=== PATIENT | female | born 1970 | race Caucasian/White ===

== ENCOUNTER 2021-10-22 13:20 | Inpatient (IN) | payer MEDICARE, MEDICAID, SELFPAY ==
[2021-10-22] MEDS: Acetaminophen 325 MG TABLET 650 MG PO (15:47)
--- NOTE | 2021-10-22 16:04 | PC.NURSE ---
Missy (requesting to be called Christina, a 51 year old single woman with longstanding schizoaffective disorder, is admitted to from [facility] ED for exacerbation of psychosis. Per [facility] Visiting nurse Missy has been decompensating since the of her father several months ago. She is currently responding to auditory hallucinations, I know my mother is here. I hear her saying it, don't you hear that? . In addition, she appears paranoid and delusional (indicates belief food is poisoned) Speech is rapid, tangential and pressured. Missy is somewhat hypersexual, having ripped her paper scrubs in the front and exposed her breasts on the unit but responded to redirection. She is inattentive and having difficulty responding appropriately to admission questions. Missy denies sleep disturbance, reports good appetite I only eat cheese pizza and, as noted, ability to focus is impaired. Missy reported compliance with her medications. She has VNA bid for med administration. Visiting nurse states Missy struggles to take her Invega Sustenna because she is afraid of the injection but last took it on 10/09/21. Missy reports snorting her buspar. She denies using cocaine despite tox screen results. She denies other substance use. She reports sore muscles in bilateral thighs, took tylenol with effect and denies further physical complaint.
[2021-10-22] MEDS: LORazepam 1 MG TABLET 2 MG PO (19:13)
[2021-10-22] MEDS: HaloperidoL 5 MG TABLET 10 MG PO (20:15)
[2021-10-22] MEDS: clonazePAM 1 MG TABLET 2 MG PO (20:15)
[2021-10-22] MEDS: busPIRone HCl 10 MG TABLET PO (20:16)
[2021-10-22] MEDS: polyethylene glycoL 3350 17 GM POWD.PACK PO (20:20)
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
[2021-10-23 08:00] VITALS: BP 122/77; PULSE 105; RESP 18; TEMP 36.5; O2SAT 97
[2021-10-23] MEDS: Multivitamin TABLET 1 TAB PO (09:27)
[2021-10-23] MEDS: HaloperidoL 5 MG TABLET 10 MG PO ×2 (09:27→20:50)
[2021-10-23] MEDS: busPIRone HCl 10 MG TABLET PO ×2 (09:27→20:50)
[2021-10-23] MEDS: Fluticasone Propionate Nasal 16 GM SPRAY 2 SPRAY NOSTRIL-B (10:42)
[2021-10-23] MEDS: Albuterol Sulfate 90 MCG 8 GM INHALER 2 PUFF INHALE ×2 (10:42→15:15)
[2021-10-23] MEDS: Nicotine Polacrilex 2 MG GUM BUCCAL (16:38)
[2021-10-23] MEDS: clonazePAM 1 MG TABLET 2 MG PO (20:50)
[2021-10-24 06:00] VITALS: BP 145/80; PULSE 92; RESP 18; TEMP 36.9; O2SAT 100
[2021-10-24] MEDS: Multivitamin TABLET 1 TAB PO (08:24)
[2021-10-24] MEDS: busPIRone HCl 10 MG TABLET PO ×2 (08:25→22:51)
[2021-10-24] MEDS: HaloperidoL 5 MG TABLET 10 MG PO ×2 (08:25→22:52)
[2021-10-24] MEDS: Fluticasone Propionate Nasal 16 GM SPRAY 2 SPRAY NOSTRIL-B (08:25)
--- NOTE | 2021-10-24 09:55 | PM.EVENT ---
Event Note Date of Service: 10/24/21 Event Note: Patient refused to be seen, only wants to see Psychiatris. Saff can contacted us if anything change.
[2021-10-24] MEDS: LORazepam 1 MG TABLET 2 MG PO ×2 (10:17→16:54)
[2021-10-24] MEDS: carBAMazepine ER 200 MG TAB.ER.12H PO ×2 (10:17→22:51)
[2021-10-24] MEDS: Albuterol Sulfate 90 MCG 8 GM INHALER 2 PUFF INHALE ×2 (13:59→23:58)
--- NOTE | 2021-10-24 14:08 | HO.PSYCHPN ---
Subjective Subjective Date of Service: 10/24/21 Reason For Visit: torres Interim History: pt hyperverbal, active in the hallway. eager to meet with MD. states she is fine and doesn't need any medication. yet when MD suggests she would be helped by a mood stabilizer, she agrees to try trileptal. per staff, 3-day up wednesday. reporting depression 09/07. denies anxiety, SI/HI. seeing and hearing magical people. stated to nursing staff, i need some giggle pills. slept 7 hours overnight. Mental Status Exam Mental Status Exam Narrative: Appearance: casually groomed, fair hygiene in NAD Behavior:overly familiar with this film writer psychomotor:some agitation noted at times Speech:mostly clear, but rambles at times, hyperverbal, not pressured, loud at times, spontaneous Thought process:flight of ideas, derailment. Thought content: no delusions or paranoia clearly articulated Mood: not assessed Affect: mod labile SI:none expressed HI:none expresssed VH/AH:none expressed Insight/judgment:impaired x 2 Memory/cog: alert, oriented x 3. Diagnostics Vital Signs (24Hr): Vital Signs - 24 hr 10/24/21 06:00 Temperature 98.4 F Pulse Rate 92 Respiratory Rate 18 Blood Pressure 145/80 H Pulse Oximetry 100 Medications Medications Current Medications Acetaminophen (Acetaminophen 325 Mg Tablet) 650 mg PO Q6H PRN PRN Reason: Headache/Pain Mild Scale (1-3) Last Admin: 10/22/21 15:47 Dose: 650 mg Documented by: Al Hydroxide/Mg Hydroxide (Magnesium Hydrox/Alum Hydrox 30 Ml Oral.Susp) 30 ml PO Q6H PRN PRN Reason: Heartburn/Nausea Albuterol Sulfate (Albuterol Sulfate 90 Mcg 8 Gm Inhaler) 2 puff INHALE Q4H PRN PRN Reason: Wheezing Last Admin: 10/24/21 13:59 Dose: 2 puff Documented by: Benztropine Mesylate (Benztropine Mesylate 0.5 Mg Tablet) 0.5 mg PO BID PRN PRN Reason: Extrapyramidal Effects/Symptoms Buspirone HCl (Buspirone Hcl 10 Mg Tablet) 10 mg PO BID [facility] Last Admin: 10/24/21 08:25 Dose: 10 mg Documented by: Calcium Carbonate (Calcium Carbonate 500 Mg Tablet) 500 mg PO BID [facility] Last Admin: 10/24/21 10:18 Dose: 500 mg Documented by: Carbamazepine (Carbamazepine Er 200 Mg Tab.Er.12h) 200 mg PO BID [facility] Last Admin: 10/24/21 10:17 Dose: 200 mg Documented by: Clonazepam (Clonazepam 1 Mg Tablet) 2 mg PO BEDTIME [facility] Last Admin: 10/23/21 20:50 Dose: 2 mg Documented by: Fluticasone Propionate (Fluticasone Propionate Nasal 16 Gm [place]) 2 spray NOSTRIL-B DAILY [facility] Last Admin: 10/24/21 08:25 Dose: 2 spray Documented by: Haloperidol (Haloperidol 5 Mg Tablet) 10 mg PO BID [facility] Last Admin: 10/24/21 08:25 Dose: 10 mg Documented by: Hydroxyzine HCl (Hydroxyzine Hcl 25 Mg Tablet) 25 mg PO BEDTIME PRN PRN Reason: Anxiety Lorazepam (Lorazepam 1 Mg Tablet) 2 mg PO Q4H PRN PRN Reason: agitation Last Admin: 10/24/21 10:17 Dose: 2 mg Documented by: Magnesium Hydroxide (Milk Of Magnesia 30 Ml Oral.Susp) 30 ml PO DAILY PRN PRN Reason: Constipation Multivitamins/Vitamin C (Multivitamin Tablet) 1 tab PO DAILY [facility] Last Admin: 10/24/21 08:24 Dose: 1 tab Documented by: Nicotine Polacrilex (Nicotine Polacrilex 2 Mg Gum) 2 mg BUCCAL Q2H PRN PRN Reason: Nicotine Cravings Last Admin: 10/23/21 16:38 Dose: 2 mg Documented by: Olanzapine (Olanzapine Odt 10 Mg Tab.Rapdis) 10 mg TRANSLINGU Q6H PRN PRN Reason: agitation Paliperidone Palmitate (Paliperidone Palmitate 234 Mg/1.5 Ml Syringe) 234 mg IM Q28D [facility] Polyethylene Glycol (Polyethylene Glycol 3350 17 Gm Powd.Pack) 17 gm PO DAILY PRN PRN Reason: Constipation Last Admin: 10/22/21 20:20 Dose: 17 gm Documented by: Tiotropium [place] (Tiotropium [place] 18 Mcg Cap.W.Dev) 1 puff INHALE RDAILY [facility] Last Admin: 10/24/21 08:25 Dose: 1 puff Documented by: Trazodone HCl (Trazodone Hcl 50 Mg Tablet) 50 mg PO BEDTIME PRN PRN Reason: Insomnia Allergies Allergies Allergy/AdvReac Type Severity Reaction Status Date / Time oxcarbazepine Allergy Mild DYSTONIC Unverified 08/15/20 16:53 [From Trileptal] Penicillins Allergy Mild UNKNOWN Unverified 08/15/20 16:53 perphenazine [Perphenazine] Allergy Mild UNKNOWN Unverified 08/15/20 16:53 Assessment & Plan Assessment & Plan (1) Schizoaffective disorder, bipolar type: Status: Acute Code(s): F25.0 - Schizoaffective disorder, bipolar type Assessment and Plan: Ms. Mello is a 51 year-old woman with long hx of schizoaffective disorder bipolar type who was brought to [facility] ED for evaluation after her ACCS worker requested crisis eval as pt presented as increasingly more disorganized, labile, religiously preoccupied which is her usual presentation when she decompensates. PLAN 1. Admit to M3, CV, 15 minutes checks for safety 2. restarted medications combination of haldol, does have Invega Sustenna 234mg IM qmonth- verify last IM given. 3. started trileptal 200 BID 10/24 for mood stabilization. 4. Obtain collateral information 5. Aftercare planning I spent minutes with the patient and/or on the patient floor today, greater than?50% of which was spent counseling/coordinating care. Reason for contiued inpatient stay Substantial Risk for: inability to function
[2021-10-24 18:00] VITALS: RESP 16
[2021-10-24] MEDS: clonazePAM 1 MG TABLET 2 MG PO (22:52)
[2021-10-25] MEDS: polyethylene glycoL 3350 17 GM POWD.PACK PO ×2 (01:07→13:08)
[2021-10-25] MEDS: Nicotine Polacrilex 2 MG GUM BUCCAL (06:04)
[2021-10-25 07:40] VITALS: BP 127/95; PULSE 96; RESP 18; TEMP 36.7; O2SAT 96
[2021-10-25] MEDS: Albuterol Sulfate 90 MCG 8 GM INHALER 2 PUFF INHALE (07:48)
[2021-10-25] MEDS: Multivitamin TABLET 1 TAB PO (07:48)
[2021-10-25] MEDS: Fluticasone Propionate Nasal 16 GM SPRAY 2 SPRAY NOSTRIL-B (07:49)
[2021-10-25] MEDS: HaloperidoL 5 MG TABLET 10 MG PO ×2 (07:49→21:39)
[2021-10-25] MEDS: carBAMazepine ER 200 MG TAB.ER.12H PO (07:49)
[2021-10-25] MEDS: busPIRone HCl 10 MG TABLET PO ×2 (07:49→21:39)
[2021-10-25] MEDS: Nicotine 21 MG PATCH.TD24 TRANSDERMA (11:09)
--- NOTE | 2021-10-25 13:43 | P.PNPSI_ITS ---
Subjective Subjective Date of Service: 10/25/21 Reason For Visit: torres Interim History: pt reports she is feeling great and slept very well last night. shows MD the coloring she has done for her mother and informs MD she has left a gift for him at the nursing station. reluctantly agrees to increase tegretol to 300 BID. agrees to decrease klonopin at HS from 2 mg to 1.5 mg. reviews that she has a three-day in and plans to discharge on wednesday. per staff, manic, labile. eccentric make-up. wearing wigs. med-compliant. having AH of a peer from the long term, believes nursing is hiding him somewhere on the unit. slept 7:30-10:30 pm and then from 0100- 0445. Mental Status Exam Mental Status Exam Narrative: Appearance: casually groomed, fair hygiene in NAD Behavior:overly familiar with this credit underwriter psychomotor:some agitation noted at times Speech:mostly clear, but rambles at times, hyperverbal, not pressured, loud at times, spontaneous Thought process:flight of ideas, derailment. Thought content: no delusions or paranoia clearly articulated Mood: not assessed Affect: mod labile SI:none expressed HI:none expresssed VH/AH:none expressed Insight/judgment:impaired x 2 Memory/cog: alert, oriented x 3. Diagnostics Vital Signs (24Hr): Vital Signs - 24 hr 10/24/21 18:00 10/25/21 07:40 Temperature 98.0 F Pulse Rate 96 Respiratory Rate 16 18 Blood Pressure 127/95 H Pulse Oximetry 96 Medications Medications Current Medications Acetaminophen (Acetaminophen 325 Mg Tablet) 650 mg PO Q6H PRN PRN Reason: Headache/Pain Mild Scale (1-3) Last Admin: 10/22/21 15:47 Dose: 650 mg Documented by: Al Hydroxide/Mg Hydroxide (Magnesium Hydrox/Alum Hydrox 30 Ml Oral.Susp) 30 ml PO Q6H PRN PRN Reason: Heartburn/Nausea Albuterol Sulfate (Albuterol Sulfate 90 Mcg 8 Gm Inhaler) 2 puff INHALE Q4H PRN PRN Reason: Wheezing Last Admin: 10/25/21 07:48 Dose: 2 puff Documented by: Benztropine Mesylate (Benztropine Mesylate 0.5 Mg Tablet) 0.5 mg PO BID PRN PRN Reason: Extrapyramidal Effects/Symptoms Buspirone HCl (Buspirone Hcl 10 Mg Tablet) 10 mg PO BID [facility] Last Admin: 10/25/21 07:49 Dose: 10 mg Documented by: Calcium Carbonate (Calcium Carbonate 500 Mg Tablet) 500 mg PO BID [facility] Last Admin: 10/25/21 07:49 Dose: 500 mg Documented by: Carbamazepine (Carbamazepine Er 100 Mg Tab.Er.12h) 300 mg PO BID [facility] Clonazepam (Clonazepam 0.5 Mg Tablet) 1.5 mg PO BEDTIME [facility] Fluticasone Propionate (Fluticasone Propionate Nasal 16 Gm [place]) 2 spray NOSTRIL-B DAILY [facility] Last Admin: 10/25/21 07:49 Dose: 2 spray Documented by: Haloperidol (Haloperidol 5 Mg Tablet) 10 mg PO BID [facility] Last Admin: 10/25/21 07:49 Dose: 10 mg Documented by: Hydroxyzine HCl (Hydroxyzine Hcl 25 Mg Tablet) 25 mg PO BEDTIME PRN PRN Reason: Anxiety Lorazepam (Lorazepam 1 Mg Tablet) 2 mg PO Q4H PRN PRN Reason: agitation Last Admin: 10/24/21 16:54 Dose: 2 mg Documented by: Magnesium Hydroxide (Milk Of Magnesia 30 Ml Oral.Susp) 30 ml PO DAILY PRN PRN Reason: Constipation Multivitamins/Vitamin C (Multivitamin Tablet) 1 tab PO DAILY [facility] Last Admin: 10/25/21 07:48 Dose: 1 tab Documented by: Nicotine (Nicotine 21 Mg Patch.Td24) 21 mg TRANSDERMA DAILY [facility] Last Admin: 10/25/21 11:09 Dose: 21 mg Documented by: Nicotine Polacrilex (Nicotine Polacrilex 2 Mg Gum) 2 mg BUCCAL Q2H PRN PRN Reason: Nicotine Cravings Last Admin: 10/25/21 06:04 Dose: 2 mg Documented by: Olanzapine (Olanzapine Odt 10 Mg Tab.Rapdis) 10 mg TRANSLINGU Q6H PRN PRN Reason: agitation Paliperidone Palmitate (Paliperidone Palmitate 234 Mg/1.5 Ml Syringe) 234 mg IM Q28D [facility] Polyethylene Glycol (Polyethylene Glycol 3350 17 Gm Powd.Pack) 17 gm PO DAILY PRN PRN Reason: Constipation Last Admin: 10/25/21 13:08 Dose: 17 gm Documented by: Tiotropium [place] (Tiotropium [place] 18 Mcg Cap.W.Dev) 1 puff INHALE [place] [facility] Last Admin: 10/25/21 07:55 Dose: 1 puff Documented by: Trazodone HCl (Trazodone Hcl 50 Mg Tablet) 50 mg PO BEDTIME PRN PRN Reason: Insomnia Allergies Allergies Allergy/AdvReac Type Severity Reaction Status Date / Time oxcarbazepine Allergy Mild DYSTONIC Unverified 08/15/20 16:53 [From Trileptal] Penicillins Allergy Mild UNKNOWN Unverified 08/15/20 16:53 perphenazine [Perphenazine] Allergy Mild UNKNOWN Unverified 08/15/20 16:53 Assessment & Plan Assessment & Plan (1) Schizoaffective disorder, bipolar type: Status: Acute Code(s): F25.0 - Schizoaffective disorder, bipolar type Assessment and Plan: Ms. Mello is a 51 year-old woman with long hx of schizoaffective disorder bipolar type who was brought to [facility] ED for evaluation after her ACCS worker requested crisis eval as pt presented as increasingly more disorganized, labile, religiously preoccupied which is her usual presentation when she decompensates. PLAN 1. Admit to M3, CV, 15 minutes checks for safety 2. restarted medications combination of haldol, does have Invega Sustenna 234mg IM qmonth- verify last IM given. 3. started trileptal 200 BID 10/24 for mood stabilization, dosing increased to 300 mg BID on 10/25. 4. HS klonopin decreased from 2 mg to 1.5 mg as of 10/25. 4. Obtain collateral information 5. Aftercare planning I spent minutes with the patient and/or on the patient floor today, greater than?50% of which was spent counseling/coordinating care. Reason for contiued inpatient stay Substantial Risk for: inability to function and rapid decompensation
[2021-10-25 21:37] VITALS: BP 98/56; PULSE 102; RESP 18; TEMP 37.1; O2SAT 96
[2021-10-25] MEDS: clonazePAM 0.5 MG TABLET 1.5 MG PO (21:39)
[2021-10-25] MEDS: carBAMazepine ER 100 MG TAB.ER.12H 300 MG PO (21:40)
[2021-10-26 06:00] VITALS: BP 132/74; PULSE 107; RESP 18; TEMP 36.5; O2SAT 97
[2021-10-26] MEDS: Nicotine 21 MG PATCH.TD24 TRANSDERMA (09:45)
[2021-10-26] MEDS: Fluticasone Propionate Nasal 16 GM SPRAY 2 SPRAY NOSTRIL-B (09:46)
[2021-10-26] MEDS: busPIRone HCl 10 MG TABLET PO ×2 (09:47→21:20)
[2021-10-26] MEDS: Multivitamin TABLET 1 TAB PO (09:47)
[2021-10-26] MEDS: HaloperidoL 5 MG TABLET 10 MG PO ×2 (09:47→21:19)
[2021-10-26] MEDS: carBAMazepine ER 100 MG TAB.ER.12H 300 MG PO ×2 (10:36→21:20)
--- NOTE | 2021-10-26 13:31 | HO.PSYCHPN ---
Subjective Subjective Date of Service: 10/26/21 Reason For Visit: torres Interim History: pt found sleping in her bed late morning. easily rousable to voice. states she is doing fine, has no complaints. clearly sleepy. interview very brief, pt is allowed to return to resting. per staff, pt slept last night from 7 until this morning about 8. woke up rageful, pounding on table accusing staff of calling her a scumbag. took her medications and calmed down, returned to her room and went back to sleep. sleeping again at 11:45. appetite good. Mental Status Exam Mental Status Exam Narrative: sleeping but rousable. terse, does not turn over to look at MD, states she is in a good mood. Diagnostics Vital Signs (24Hr): Vital Signs - 24 hr 10/25/21 21:37 10/26/21 06:00 Temperature 98.7 F 97.7 F Pulse Rate 102 H 107 H Respiratory Rate 18 18 Blood Pressure 98/56 L 132/74 Pulse Oximetry 96 97 Medications Medications Current Medications Acetaminophen (Acetaminophen 325 Mg Tablet) 650 mg PO Q6H PRN PRN Reason: Headache/Pain Mild Scale (1-3) Last Admin: 10/22/21 15:47 Dose: 650 mg Documented by: Al Hydroxide/Mg Hydroxide (Magnesium Hydrox/Alum Hydrox 30 Ml Oral.Susp) 30 ml PO Q6H PRN PRN Reason: Heartburn/Nausea Albuterol Sulfate (Albuterol Sulfate 90 Mcg 8 Gm Inhaler) 2 puff INHALE Q4H PRN PRN Reason: Wheezing Last Admin: 10/25/21 07:48 Dose: 2 puff Documented by: Benztropine Mesylate (Benztropine Mesylate 0.5 Mg Tablet) 0.5 mg PO BID PRN PRN Reason: Extrapyramidal Effects/Symptoms Buspirone HCl (Buspirone Hcl 10 Mg Tablet) 10 mg PO BID [facility] Last Admin: 10/26/21 09:47 Dose: 10 mg Documented by: Calcium Carbonate (Calcium Carbonate 500 Mg Tablet) 500 mg PO BID [facility] Last Admin: 10/26/21 09:46 Dose: 500 mg Documented by: Carbamazepine (Carbamazepine Er 100 Mg Tab.Er.12h) 300 mg PO BID [facility] Last Admin: 10/26/21 10:36 Dose: 300 mg Documented by: Clonazepam (Clonazepam 0.5 Mg Tablet) 1.5 mg PO BEDTIME [facility] Last Admin: 10/25/21 21:39 Dose: 1.5 mg Documented by: Fluticasone Propionate (Fluticasone Propionate Nasal 16 Gm [place]) 2 spray NOSTRIL-B DAILY [facility] Last Admin: 10/26/21 09:46 Dose: 2 spray Documented by: Haloperidol (Haloperidol 5 Mg Tablet) 10 mg PO BID [facility] Last Admin: 10/26/21 09:47 Dose: 10 mg Documented by: Haloperidol (Haloperidol 5 Mg Tablet) 5 mg PO Q2H PRN PRN Reason: agitation Hydroxyzine HCl (Hydroxyzine Hcl 25 Mg Tablet) 25 mg PO BEDTIME PRN PRN Reason: Anxiety Lorazepam (Lorazepam 1 Mg Tablet) 2 mg PO Q4H PRN PRN Reason: agitation Last Admin: 10/24/21 16:54 Dose: 2 mg Documented by: Magnesium Hydroxide (Milk Of Magnesia 30 Ml Oral.Susp) 30 ml PO DAILY PRN PRN Reason: Constipation Multivitamins/Vitamin C (Multivitamin Tablet) 1 tab PO DAILY [facility] Last Admin: 10/26/21 09:47 Dose: 1 tab Documented by: Nicotine (Nicotine 21 Mg Patch.Td24) 21 mg TRANSDERMA DAILY [facility] Last Admin: 10/26/21 09:45 Dose: 21 mg Documented by: Nicotine Polacrilex (Nicotine Polacrilex 2 Mg Gum) 2 mg BUCCAL Q2H PRN PRN Reason: Nicotine Cravings Last Admin: 10/25/21 06:04 Dose: 2 mg Documented by: Olanzapine (Olanzapine Odt 10 Mg Tab.Rapdis) 10 mg TRANSLINGU Q6H PRN PRN Reason: agitation Paliperidone Palmitate (Paliperidone Palmitate 234 Mg/1.5 Ml Syringe) 234 mg IM Q28D [facility] Polyethylene Glycol (Polyethylene Glycol 3350 17 Gm Powd.Pack) 17 gm PO DAILY PRN PRN Reason: Constipation Last Admin: 10/25/21 13:08 Dose: 17 gm Documented by: Tiotropium [place] (Tiotropium [place] 18 Mcg Cap.W.Dev) 1 puff INHALE RDAILY [facility] Last Admin: 10/26/21 09:47 Dose: Not Given Documented by: Trazodone HCl (Trazodone Hcl 50 Mg Tablet) 50 mg PO BEDTIME PRN PRN Reason: Insomnia Allergies Allergies Allergy/AdvReac Type Severity Reaction Status Date / Time oxcarbazepine Allergy Mild DYSTONIC Verified 10/26/21 01:13 [From Trileptal] Penicillins Allergy Mild UNKNOWN Verified 10/26/21 01:13 perphenazine [Perphenazine] Allergy Mild UNKNOWN Verified 10/26/21 01:13 Assessment & Plan Assessment & Plan (1) Schizoaffective disorder, bipolar type: Status: Acute Code(s): F25.0 - Schizoaffective disorder, bipolar type Assessment and Plan: Ms. Mello is a 51 year-old woman with long hx of schizoaffective disorder bipolar type who was brought to [facility] ED for evaluation after her ACCS worker requested crisis eval as pt presented as increasingly more disorganized, labile, religiously preoccupied which is her usual presentation when she decompensates. PLAN 1. Admit to M3, CV, 15 minutes checks for safety 2. restarted medications combination of haldol, does have Invega Sustenna 234mg IM qmonth- verify last IM given. 3. started trileptal 200 BID 10/24 for mood stabilization, dosing increased to 300 mg BID on 10/25. 4. HS klonopin decreased from 2 mg to 1.5 mg as of 10/25, 1 mg as of 10/26. 4. Obtain collateral information 5. Aftercare planning I spent minutes with the patient and/or on the patient floor today, greater than?50% of which was spent counseling/coordinating care. Reason for contiued inpatient stay Substantial Risk for: inability to function and rapid decompensation
[2021-10-26] MEDS: polyethylene glycoL 3350 17 GM POWD.PACK PO (13:39)
[2021-10-26] MEDS: Albuterol Sulfate 90 MCG 8 GM INHALER 2 PUFF INHALE (16:26)
[2021-10-26] MEDS: Milk of Magnesia 30 ML ORAL.SUSP PO (17:18)
[2021-10-26 18:00] VITALS: BP 144/72; PULSE 90; RESP 18; TEMP 36.8; O2SAT 98
[2021-10-27] MEDS: busPIRone HCl 10 MG TABLET PO ×2 (09:14→22:17)
[2021-10-27] MEDS: HaloperidoL 5 MG TABLET 10 MG PO ×2 (09:14→22:17)
[2021-10-27] MEDS: carBAMazepine ER 100 MG TAB.ER.12H 300 MG PO (09:14)
[2021-10-27] MEDS: Multivitamin TABLET 1 TAB PO (09:14)
[2021-10-27] MEDS: LORazepam 1 MG TABLET 2 MG PO (12:41)
--- NOTE | 2021-10-27 12:44 | HO.PSYCHPN ---
Subjective Subjective Date of Service: 10/27/21 Reason For Visit: torres Interim History: pt encountered in the meza, hyperverbal, mildly agitated. she states she is getting claustrophobic here and needs to leave tomorrow. MD informs her that she needs more time, perhaps another week or more, and pt agrees to increase tegretol to 400 BID as of tonight and to take ativan 2 mg now for agitation. labile, tearful. after meeting she quickly changes her mind again and states she will be leaving tomorrow and will speak with the social media content manager to arrange for it. MD does not support this idea. per staff, slept 6-8 hours overnight. med-compliant. no other notable events or behaviors. 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 Thought content: no delusions or paranoia clearly articulated Mood: not assessed Affect: labile SI:none expressed HI:none expresssed VH/AH:none expressed Insight/judgment:impaired x 2 Memory/cog: alert, oriented x 3. Diagnostics Vital Signs (24Hr): Vital Signs - 24 hr 10/26/21 18:00 Temperature 98.2 F Pulse Rate 90 Respiratory Rate 18 Blood Pressure 144/72 H Pulse Oximetry 98 Medications Medications Current Medications Acetaminophen (Acetaminophen 325 Mg Tablet) 650 mg PO Q6H PRN PRN Reason: Headache/Pain Mild Scale (1-3) Last Admin: 10/22/21 15:47 Dose: 650 mg Documented by: Al Hydroxide/Mg Hydroxide (Magnesium Hydrox/Alum Hydrox 30 Ml Oral.Susp) 30 ml PO Q6H PRN PRN Reason: Heartburn/Nausea Albuterol Sulfate (Albuterol Sulfate 90 Mcg 8 Gm Inhaler) 2 puff INHALE Q4H PRN PRN Reason: Wheezing Last Admin: 10/26/21 16:26 Dose: 2 puff Documented by: Benztropine Mesylate (Benztropine Mesylate 0.5 Mg Tablet) 0.5 mg PO BID PRN PRN Reason: Extrapyramidal Effects/Symptoms Buspirone HCl (Buspirone Hcl 10 Mg Tablet) 10 mg PO BID [facility] Last Admin: 10/27/21 09:14 Dose: 10 mg Documented by: Calcium Carbonate (Calcium Carbonate 500 Mg Tablet) 500 mg PO BID [facility] Last Admin: 10/27/21 09:14 Dose: 500 mg Documented by: Carbamazepine (Carbamazepine Er 200 Mg Tab.Er.12h) 400 mg PO BID [facility] Clonazepam (Clonazepam 1 Mg Tablet) 1 mg PO BEDTIME [facility] Last Admin: 10/26/21 21:33 Dose: Not Given Documented by: Fluticasone Propionate (Fluticasone Propionate Nasal 16 Gm [place]) 2 spray NOSTRIL-B DAILY [facility] Last Admin: 10/27/21 10:03 Dose: Not Given Documented by: Haloperidol (Haloperidol 5 Mg Tablet) 10 mg PO BID [facility] Last Admin: 10/27/21 09:14 Dose: 10 mg Documented by: Haloperidol (Haloperidol 5 Mg Tablet) 5 mg PO Q2H PRN PRN Reason: agitation Hydroxyzine HCl (Hydroxyzine Hcl 25 Mg Tablet) 25 mg PO BEDTIME PRN PRN Reason: Anxiety Lorazepam (Lorazepam 1 Mg Tablet) 2 mg PO Q4H PRN PRN Reason: agitation Last Admin: 10/24/21 16:54 Dose: 2 mg Documented by: Magnesium Hydroxide (Milk Of Magnesia 30 Ml Oral.Susp) 30 ml PO DAILY PRN PRN Reason: Constipation Last Admin: 10/26/21 17:18 Dose: 30 ml Documented by: Multivitamins/Vitamin C (Multivitamin Tablet) 1 tab PO DAILY [facility] Last Admin: 10/27/21 09:14 Dose: 1 tab Documented by: Nicotine (Nicotine 21 Mg Patch.Td24) 21 mg TRANSDERMA DAILY [facility] Last Admin: 10/27/21 10:03 Dose: Not Given Documented by: Nicotine Polacrilex (Nicotine Polacrilex 2 Mg Gum) 2 mg BUCCAL Q2H PRN PRN Reason: Nicotine Cravings Last Admin: 10/25/21 06:04 Dose: 2 mg Documented by: Olanzapine (Olanzapine Odt 10 Mg Tab.Rapdis) 10 mg TRANSLINGU Q6H PRN PRN Reason: agitation Paliperidone Palmitate (Paliperidone Palmitate 234 Mg/1.5 Ml Syringe) 234 mg IM Q28D [facility] Polyethylene Glycol (Polyethylene Glycol 3350 17 Gm Powd.Pack) 17 gm PO DAILY PRN PRN Reason: Constipation Last Admin: 10/26/21 13:39 Dose: 17 gm Documented by: Tiotropium [place] (Tiotropium [place] 18 Mcg Cap.W.Dev) 1 puff INHALE RDAILY [facility] Last Admin: 10/27/21 10:03 Dose: Not Given Documented by: Trazodone HCl (Trazodone Hcl 50 Mg Tablet) 50 mg PO BEDTIME PRN PRN Reason: Insomnia Allergies Allergies Allergy/AdvReac Type Severity Reaction Status Date / Time oxcarbazepine Allergy Mild DYSTONIC Verified 10/26/21 01:13 [From Trileptal] Penicillins Allergy Mild UNKNOWN Verified 10/26/21 01:13 perphenazine [Perphenazine] Allergy Mild UNKNOWN Verified 10/26/21 01:13 Assessment & Plan Assessment & Plan (1) Schizoaffective disorder, bipolar type: Status: Acute Code(s): F25.0 - Schizoaffective disorder, bipolar type Assessment and Plan: Ms. Mello is a 51 year-old woman with long hx of schizoaffective disorder bipolar type who was brought to [facility] ED for evaluation after her ACCS worker requested crisis eval as pt presented as increasingly more disorganized, labile, religiously preoccupied which is her usual presentation when she decompensates. PLAN 1. Admit to M3, CV, 15 minutes checks for safety 2. restarted medications combination of haldol, does have Invega Sustenna 234mg IM qmonth last given 10/09, next due 11/06. 3. started tegretol 200 BID 10/24 for mood stabilization, dosing increased to 300 mg BID on 10/25, on to 400 BID on 10/27. 4. HS klonopin decreased from 2 mg to 1.5 mg as of 10/25, 1 mg as of 10/26. 5. Aftercare planning I spent minutes with the patient and/or on the patient floor today, greater than?50% of which was spent counseling/coordinating care. Reason for contiued inpatient stay Substantial Risk for: inability to function and rapid decompensation
[2021-10-27] MEDS: Nicotine 21 MG PATCH.TD24 TRANSDERMA (12:56)
[2021-10-27] MEDS: Nicotine Polacrilex 2 MG GUM BUCCAL ×2 (15:36→22:34)
[2021-10-27] MEDS: Albuterol Sulfate 90 MCG 8 GM INHALER 2 PUFF INHALE (17:47)
[2021-10-27 18:00] VITALS: BP 117/68; PULSE 100; RESP 17; TEMP 36.5; O2SAT 96
[2021-10-27] MEDS: carBAMazepine ER 200 MG TAB.ER.12H 400 MG PO (22:16)
[2021-10-27] MEDS: clonazePAM 1 MG TABLET PO (22:16)
[2021-10-27] MEDS: hydrOXYzine HCL 25 MG TABLET PO (22:17)
[2021-10-27] MEDS: traZODone HCL 50 MG TABLET PO (22:17)
[2021-10-27] MEDS: Benztropine Mesylate 0.5 MG TABLET PO (22:17)
[2021-10-28] MEDS: HaloperidoL 5 MG TABLET 10 MG PO ×2 (08:24→22:06)
[2021-10-28] MEDS: busPIRone HCl 10 MG TABLET PO ×2 (08:24→22:07)
[2021-10-28] MEDS: Multivitamin TABLET 1 TAB PO (08:25)
[2021-10-28] MEDS: carBAMazepine ER 200 MG TAB.ER.12H 400 MG PO ×2 (08:25→22:07)
[2021-10-28] MEDS: Nicotine 21 MG PATCH.TD24 TRANSDERMA (08:26)
[2021-10-28] MEDS: Fluticasone Propionate Nasal 16 GM SPRAY 2 SPRAY NOSTRIL-B (08:26)
--- NOTE | 2021-10-28 13:59 | HO.PSYCHPN ---
Subjective Subjective Date of Service: 10/28/21 Reason For Visit: torres Interim History: pt found sleeping in her bed. rousable to voice. states she signed the CV. she reports she is feeling well and has no problems. she is not labile or pressured during brief interview but clearly sleepy. MD shortly allows her to return to rest. per staff, pt was labile and pressured yesterday. she endorsed AVH. she received ativan 2 mg x21 with good effect. she was hypersexual as well as social and disorganized. med-compliant. self-dialoguing. slept about 8 hours overnight. 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 Diagnostics Vital Signs (24Hr): Vital Signs - 24 hr 10/27/21 18:00 Temperature 97.7 F Pulse Rate 100 Respiratory Rate 17 Blood Pressure 117/68 Pulse Oximetry 96 Medications Medications Current Medications Acetaminophen (Acetaminophen 325 Mg Tablet) 650 mg PO Q6H PRN PRN Reason: Headache/Pain Mild Scale (1-3) Last Admin: 10/22/21 15:47 Dose: 650 mg Documented by: Al Hydroxide/Mg Hydroxide (Magnesium Hydrox/Alum Hydrox 30 Ml Oral.Susp) 30 ml PO Q6H PRN PRN Reason: Heartburn/Nausea Albuterol Sulfate (Albuterol Sulfate 90 Mcg 8 Gm Inhaler) 2 puff INHALE Q4H PRN PRN Reason: Wheezing Last Admin: 10/27/21 17:47 Dose: 2 puff Documented by: Benztropine Mesylate (Benztropine Mesylate 0.5 Mg Tablet) 0.5 mg PO BID PRN PRN Reason: Extrapyramidal Effects/Symptoms Last Admin: 10/27/21 22:17 Dose: 0.5 mg Documented by: Buspirone HCl (Buspirone Hcl 10 Mg Tablet) 10 mg PO BID [facility] Last Admin: 10/28/21 08:24 Dose: 10 mg Documented by: Calcium Carbonate (Calcium Carbonate 500 Mg Tablet) 500 mg PO BID [facility] Last Admin: 10/28/21 08:25 Dose: 500 mg Documented by: Carbamazepine (Carbamazepine Er 200 Mg Tab.Er.12h) 400 mg PO BID [facility] Last Admin: 10/28/21 08:25 Dose: 400 mg Documented by: Clonazepam (Clonazepam 0.5 Mg Tablet) 0.5 mg PO BEDTIME [facility] Fluticasone Propionate (Fluticasone Propionate Nasal 16 Gm [place]) 2 spray NOSTRIL-B DAILY [facility] Last Admin: 10/28/21 08:26 Dose: 2 spray Documented by: Haloperidol (Haloperidol 5 Mg Tablet) 10 mg PO BID [facility] Last Admin: 10/28/21 08:24 Dose: 10 mg Documented by: Haloperidol (Haloperidol 5 Mg Tablet) 5 mg PO Q2H PRN PRN Reason: agitation Hydroxyzine HCl (Hydroxyzine Hcl 25 Mg Tablet) 25 mg PO BEDTIME PRN PRN Reason: Anxiety Last Admin: 10/27/21 22:17 Dose: 25 mg Documented by: Lorazepam (Lorazepam 1 Mg Tablet) 2 mg PO Q4H PRN PRN Reason: agitation Last Admin: 10/24/21 16:54 Dose: 2 mg Documented by: Magnesium Hydroxide (Milk Of Magnesia 30 Ml Oral.Susp) 30 ml PO DAILY PRN PRN Reason: Constipation Last Admin: 10/26/21 17:18 Dose: 30 ml Documented by: Multivitamins/Vitamin C (Multivitamin Tablet) 1 tab PO DAILY [facility] Last Admin: 10/28/21 08:25 Dose: 1 tab Documented by: Nicotine (Nicotine 21 Mg Patch.Td24) 21 mg TRANSDERMA DAILY [facility] Last Admin: 10/28/21 08:26 Dose: 21 mg Documented by: Nicotine Polacrilex (Nicotine Polacrilex 2 Mg Gum) 2 mg BUCCAL Q2H PRN PRN Reason: Nicotine Cravings Last Admin: 10/27/21 22:34 Dose: 2 mg Documented by: Olanzapine (Olanzapine Odt 10 Mg Tab.Rapdis) 10 mg TRANSLINGU Q6H PRN PRN Reason: agitation Paliperidone Palmitate (Paliperidone Palmitate 234 Mg/1.5 Ml Syringe) 234 mg IM Q28D [facility] Polyethylene Glycol (Polyethylene Glycol 3350 17 Gm Powd.Pack) 17 gm PO DAILY PRN PRN Reason: Constipation Last Admin: 10/26/21 13:39 Dose: 17 gm Documented by: Tiotropium [place] (Tiotropium [place] 18 Mcg Cap.W.Dev) 1 puff INHALE RDAILY [facility] Last Admin: 10/28/21 08:27 Dose: 1 puff Documented by: Trazodone HCl (Trazodone Hcl 50 Mg Tablet) 50 mg PO BEDTIME PRN PRN Reason: Insomnia Last Admin: 10/27/21 22:17 Dose: 50 mg Documented by: Allergies Allergies Allergy/AdvReac Type Severity Reaction Status Date / Time oxcarbazepine Allergy Mild DYSTONIC Verified 10/26/21 01:13 [From Trileptal] Penicillins Allergy Mild UNKNOWN Verified 10/26/21 01:13 perphenazine [Perphenazine] Allergy Mild UNKNOWN Verified 10/26/21 01:13 Assessment & Plan Assessment & Plan (1) Schizoaffective disorder, bipolar type: Status: Acute Code(s): F25.0 - Schizoaffective disorder, bipolar type Assessment and Plan: Ms. Mello is a 51 year-old woman with long hx of schizoaffective disorder bipolar type who was brought to [facility] ED for evaluation after her ACCS worker requested crisis eval as pt presented as increasingly more disorganized, labile, religiously preoccupied which is her usual presentation when she decompensates. PLAN 1. Admit to M3, CV, 15 minutes checks for safety 2. restarted medications combination of haldol, does have Invega Sustenna 234mg IM qmonth last given 10/09, next due 11/06. 3. started tegretol 200 BID 10/24 for mood stabilization, dosing increased to 300 mg BID on 10/25, on to 400 BID on 10/27. 4. HS klonopin decreased from 2 mg to 1.5 mg as of 10/25, to 1 mg as of 10/26, to 0.5 mg as of 10/28. 5. Aftercare planning. may go to respite once stabilized. I spent minutes with the patient and/or on the patient floor today, greater than?50% of which was spent counseling/coordinating care. Reason for contiued inpatient stay Substantial Risk for: inability to function and rapid decompensation
[2021-10-28] MEDS: Nicotine Polacrilex 2 MG GUM BUCCAL (16:50)
[2021-10-28] MEDS: clonazePAM 0.5 MG TABLET PO (22:06)
[2021-10-29] MEDS: LORazepam 1 MG TABLET 2 MG PO ×2 (07:14→12:33)
[2021-10-29] MEDS: HaloperidoL 5 MG TABLET PO (07:15)
[2021-10-29 08:00] VITALS: BP 121/68; PULSE 94; RESP 16; TEMP 36.3; O2SAT 97
[2021-10-29] MEDS: Fluticasone Propionate Nasal 16 GM SPRAY 2 SPRAY NOSTRIL-B (08:24)
[2021-10-29] MEDS: carBAMazepine ER 200 MG TAB.ER.12H 400 MG PO ×2 (08:29→21:15)
[2021-10-29] MEDS: busPIRone HCl 10 MG TABLET PO ×2 (08:29→21:16)
[2021-10-29] MEDS: HaloperidoL 5 MG TABLET 10 MG PO ×2 (08:29→21:15)
[2021-10-29] MEDS: Multivitamin TABLET 1 TAB PO (08:29)
[2021-10-29] MEDS: Nicotine Polacrilex 2 MG GUM BUCCAL ×3 (08:31→19:54)
--- NOTE | 2021-10-29 13:57 | HO.PSYCHPN ---
Subjective Subjective Date of Service: 10/29/21 Reason For Visit: torres Interim History: pt found sleeping in her bed, easily rousable. states she is feeling fine, no complaints or questions. states she spoke with SW about going to respite in a week, which remains her plan. pt seen later seated in the milieu and greeted once again. per staff, pt agitated yesterday morning. accused staff of calling her ugly. c/o dizziness from medications. self-dialoguing, bizarre, pretending to be a cat. got haldol/ativan this morning for agitation. 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 Diagnostics Vital Signs (24Hr): Vital Signs - 24 hr 10/29/21 08:00 Temperature 97.4 F Pulse Rate 94 Respiratory Rate 16 Blood Pressure 121/68 Pulse Oximetry 97 Medications Medications Current Medications Acetaminophen (Acetaminophen 325 Mg Tablet) 650 mg PO Q6H PRN PRN Reason: Headache/Pain Mild Scale (1-3) Last Admin: 10/22/21 15:47 Dose: 650 mg Documented by: Al Hydroxide/Mg Hydroxide (Magnesium Hydrox/Alum Hydrox 30 Ml Oral.Susp) 30 ml PO Q6H PRN PRN Reason: Heartburn/Nausea Albuterol Sulfate (Albuterol Sulfate 90 Mcg 8 Gm Inhaler) 2 puff INHALE Q4H PRN PRN Reason: Wheezing Last Admin: 10/27/21 17:47 Dose: 2 puff Documented by: Benztropine Mesylate (Benztropine Mesylate 0.5 Mg Tablet) 0.5 mg PO BID PRN PRN Reason: Extrapyramidal Effects/Symptoms Last Admin: 10/27/21 22:17 Dose: 0.5 mg Documented by: Buspirone HCl (Buspirone Hcl 10 Mg Tablet) 10 mg PO BID [facility] Last Admin: 10/29/21 08:29 Dose: 10 mg Documented by: Calcium Carbonate (Calcium Carbonate 500 Mg Tablet) 500 mg PO BID [facility] Last Admin: 10/29/21 08:29 Dose: 500 mg Documented by: Carbamazepine (Carbamazepine Er 200 Mg Tab.Er.12h) 400 mg PO BID [facility] Last Admin: 10/29/21 08:29 Dose: 400 mg Documented by: Clonazepam (Clonazepam 0.5 Mg Tablet) 0.5 mg PO BEDTIME [facility] Last Admin: 10/28/21 22:06 Dose: 0.5 mg Documented by: Fluticasone Propionate (Fluticasone Propionate Nasal 16 Gm [place]) 2 spray NOSTRIL-B DAILY [facility] Last Admin: 10/29/21 08:24 Dose: 2 spray Documented by: Haloperidol (Haloperidol 5 Mg Tablet) 10 mg PO BID [facility] Last Admin: 10/29/21 08:29 Dose: 10 mg Documented by: Haloperidol (Haloperidol 5 Mg Tablet) 5 mg PO Q2H PRN PRN Reason: agitation Last Admin: 10/29/21 07:15 Dose: 5 mg Documented by: Hydroxyzine HCl (Hydroxyzine Hcl 25 Mg Tablet) 25 mg PO BEDTIME PRN PRN Reason: Anxiety Last Admin: 10/27/21 22:17 Dose: 25 mg Documented by: Lorazepam (Lorazepam 1 Mg Tablet) 2 mg PO Q4H PRN PRN Reason: agitation Last Admin: 10/29/21 12:33 Dose: 2 mg Documented by: Magnesium Hydroxide (Milk Of [place]esia 30 Ml Oral.Susp) 30 ml PO DAILY PRN PRN Reason: Constipation Last Admin: 10/26/21 17:18 Dose: 30 ml Documented by: Multivitamins/Vitamin C (Multivitamin Tablet) 1 tab PO DAILY [facility] Last Admin: 10/29/21 08:29 Dose: 1 tab Documented by: Nicotine (Nicotine 21 Mg Patch.Td24) 21 mg TRANSDERMA DAILY [facility] Last Admin: 10/29/21 08:40 Dose: Not Given Documented by: Nicotine Polacrilex (Nicotine Polacrilex 2 Mg Gum) 2 mg BUCCAL Q2H PRN PRN Reason: Nicotine Cravings Last Admin: 10/29/21 12:33 Dose: 2 mg Documented by: Olanzapine (Olanzapine Odt 10 Mg Tab.Rapdis) 10 mg TRANSLINGU Q6H PRN PRN Reason: agitation Paliperidone Palmitate (Paliperidone Palmitate 234 Mg/1.5 Ml Syringe) 234 mg IM Q28D [facility] Polyethylene Glycol (Polyethylene Glycol 3350 17 Gm Powd.Pack) 17 gm PO DAILY PRN PRN Reason: Constipation Last Admin: 10/26/21 13:39 Dose: 17 gm Documented by: Tiotropium [place] (Tiotropium [place] 18 Mcg Cap.W.Dev) 1 puff INHALE RDAILY [facility] Last Admin: 10/29/21 08:24 Dose: 1 puff Documented by: Trazodone HCl (Trazodone Hcl 50 Mg Tablet) 50 mg PO BEDTIME PRN PRN Reason: Insomnia Last Admin: 10/27/21 22:17 Dose: 50 mg Documented by: Allergies Allergies Allergy/AdvReac Type Severity Reaction Status Date / Time oxcarbazepine Allergy Mild DYSTONIC Verified 10/26/21 01:13 [From Trileptal] Penicillins Allergy Mild UNKNOWN Verified 10/26/21 01:13 perphenazine [Perphenazine] Allergy Mild UNKNOWN Verified 10/26/21 01:13 Assessment & Plan Assessment & Plan (1) Schizoaffective disorder, bipolar type: Status: Acute Code(s): F25.0 - Schizoaffective disorder, bipolar type Assessment and Plan: Ms. Mello is a 51 year-old woman with long hx of schizoaffective disorder bipolar type who was brought to [facility] ED for evaluation after her ACCS worker requested crisis eval as pt presented as increasingly more disorganized, labile, religiously preoccupied which is her usual presentation when she decompensates. PLAN 1. Admit to M3, CV, 15 minutes checks for safety 2. restarted medications combination of haldol, does have Invega Sustenna 234mg IM qmonth last given 10/09, next due 11/06. 3. started tegretol 200 BID 10/24 for mood stabilization, dosing increased to 300 mg BID on 10/25, on to 400 BID on 10/27. 4. HS klonopin decreased from 2 mg to 1.5 mg as of 10/25, to 1 mg as of 10/26, to 0.5 mg as of 10/28. 5. Aftercare planning. may go to respite once stabilized. I spent minutes with the patient and/or on the patient floor today, greater than?50% of which was spent counseling/coordinating care. Reason for contiued inpatient stay Substantial Risk for: inability to function and rapid decompensation
[2021-10-29 20:42] VITALS: BP 103/55; PULSE 95; TEMP 36.7; O2SAT 96
[2021-10-29] MEDS: clonazePAM 0.5 MG TABLET PO (21:15)
[2021-10-29] MEDS: Albuterol Sulfate 90 MCG 8 GM INHALER 2 PUFF INHALE (21:15)
[2021-10-30] MEDS: Nicotine Polacrilex 2 MG GUM BUCCAL ×3 (02:57→16:44)
[2021-10-30] MEDS: HaloperidoL 5 MG TABLET PO (04:01)
[2021-10-30] MEDS: LORazepam 1 MG TABLET 2 MG PO ×2 (04:01→16:44)
[2021-10-30 07:00] VITALS: BMI 34.2
[2021-10-30 07:45] VITALS: BP 138/84; PULSE 98; RESP 16; TEMP 36.7; O2SAT 96
[2021-10-30] MEDS: Nicotine 21 MG PATCH.TD24 TRANSDERMA (08:27)
[2021-10-30] MEDS: HaloperidoL 5 MG TABLET 10 MG PO ×2 (08:28→20:58)
[2021-10-30] MEDS: Multivitamin TABLET 1 TAB PO (08:28)
[2021-10-30] MEDS: busPIRone HCl 10 MG TABLET PO ×2 (08:28→20:58)
[2021-10-30] MEDS: carBAMazepine ER 200 MG TAB.ER.12H 400 MG PO ×2 (08:28→20:59)
[2021-10-30] MEDS: Fluticasone Propionate Nasal 16 GM SPRAY 2 SPRAY NOSTRIL-B (08:31)
--- NOTE | 2021-10-30 15:38 | HO.PSYCHPN ---
Subjective Subjective Date of Service: 10/30/21 Reason For Visit: torres Interim History: pt reports feeling well, states her mood is much more stable on the tegretol, states she is feeling much better. she is looking forward to discharge, which she states she plans on happening next wednesday, to respite. no other requests or complaints. per staff, easily engaged. labile, seeing and hearing friends but denying AVH. got haldol and ativan at 0400. Mental Status Exam Mental Status Exam Narrative: Appearance: casually groomed, fair hygiene in NAD Behavior: cooperative psychomotor: no PMA/PMR Speech:mostly clear, not pressured, loud at times, spontaneous Thought process: tangential Thought content: no delusions or paranoia clearly articulated Mood: euthymic Affect: non-labile, normo-intense SI:none expressed HI:none expresssed VH/AH:none expressed Insight/judgment:impaired x 2 Memory/cog: alert, oriented x 3. Diagnostics Vital Signs (24Hr): Vital Signs - 24 hr 10/29/21 20:42 10/30/21 07:45 Temperature 98.0 F 98.1 F Pulse Rate 95 98 Respiratory Rate 16 Blood Pressure 103/55 L 138/84 Pulse Oximetry 96 96 BMI result Body Mass Index 34.2 Medications Medications Current Medications Acetaminophen (Acetaminophen 325 Mg Tablet) 650 mg PO Q6H PRN PRN Reason: Headache/Pain Mild Scale (1-3) Last Admin: 10/22/21 15:47 Dose: 650 mg Documented by: Al Hydroxide/Mg Hydroxide (Magnesium Hydrox/Alum Hydrox 30 Ml Oral.Susp) 30 ml PO Q6H PRN PRN Reason: Heartburn/Nausea Albuterol Sulfate (Albuterol Sulfate 90 Mcg 8 Gm Inhaler) 2 puff INHALE Q4H PRN PRN Reason: Wheezing Last Admin: 10/29/21 21:15 Dose: 2 puff Documented by: Benztropine Mesylate (Benztropine Mesylate 0.5 Mg Tablet) 0.5 mg PO BID PRN PRN Reason: Extrapyramidal Effects/Symptoms Last Admin: 10/27/21 22:17 Dose: 0.5 mg Documented by: Buspirone HCl (Buspirone Hcl 10 Mg Tablet) 10 mg PO BID [facility] Last Admin: 10/30/21 08:28 Dose: 10 mg Documented by: Calcium Carbonate (Calcium Carbonate 500 Mg Tablet) 500 mg PO BID [facility] Last Admin: 10/30/21 08:28 Dose: 500 mg Documented by: Carbamazepine (Carbamazepine Er 200 Mg Tab.Er.12h) 400 mg PO BID [facility] Last Admin: 10/30/21 08:28 Dose: 400 mg Documented by: Clonazepam (Clonazepam 0.5 Mg Tablet) 0.5 mg PO BEDTIME [facility] Last Admin: 10/29/21 21:15 Dose: 0.5 mg Documented by: Fluticasone Propionate (Fluticasone Propionate Nasal 16 Gm [place]) 2 spray NOSTRIL-B DAILY [facility] Last Admin: 10/30/21 08:31 Dose: 2 spray Documented by: Haloperidol (Haloperidol 5 Mg Tablet) 10 mg PO BID [facility] Last Admin: 10/30/21 08:28 Dose: 10 mg Documented by: Haloperidol (Haloperidol 5 Mg Tablet) 5 mg PO Q2H PRN PRN Reason: agitation Last Admin: 10/30/21 04:01 Dose: 5 mg Documented by: Hydroxyzine HCl (Hydroxyzine Hcl 25 Mg Tablet) 25 mg PO BEDTIME PRN PRN Reason: Anxiety Last Admin: 10/27/21 22:17 Dose: 25 mg Documented by: Lorazepam (Lorazepam 1 Mg Tablet) 2 mg PO Q4H PRN PRN Reason: agitation Last Admin: 10/30/21 04:01 Dose: 2 mg Documented by: Magnesium Hydroxide (Milk Of Magnesia 30 Ml Oral.Susp) 30 ml PO DAILY PRN PRN Reason: Constipation Last Admin: 10/26/21 17:18 Dose: 30 ml Documented by: Multivitamins/Vitamin C (Multivitamin Tablet) 1 tab PO DAILY [facility] Last Admin: 10/30/21 08:28 Dose: 1 tab Documented by: Nicotine (Nicotine 21 Mg Patch.Td24) 21 mg TRANSDERMA DAILY [facility] Last Admin: 10/30/21 08:27 Dose: 21 mg Documented by: Nicotine Polacrilex (Nicotine Polacrilex 2 Mg Gum) 2 mg BUCCAL Q2H PRN PRN Reason: Nicotine Cravings Last Admin: 10/30/21 09:15 Dose: 2 mg Documented by: Olanzapine (Olanzapine Odt 10 Mg Tab.Rapdis) 10 mg TRANSLINGU Q6H PRN PRN Reason: agitation Paliperidone Palmitate (Paliperidone Palmitate 234 Mg/1.5 Ml Syringe) 234 mg IM Q28D [facility] Polyethylene Glycol (Polyethylene Glycol 3350 17 Gm Powd.Pack) 17 gm PO DAILY PRN PRN Reason: Constipation Last Admin: 10/26/21 13:39 Dose: 17 gm Documented by: Tiotropium [place] (Tiotropium [place] 18 Mcg Cap.W.Dev) 1 puff INHALE RDAILY [facility] Last Admin: 10/30/21 08:31 Dose: 1 puff Documented by: Trazodone HCl (Trazodone Hcl 50 Mg Tablet) 50 mg PO BEDTIME PRN PRN Reason: Insomnia Last Admin: 10/27/21 22:17 Dose: 50 mg Documented by: Allergies Allergies Allergy/AdvReac Type Severity Reaction Status Date / Time oxcarbazepine Allergy Mild DYSTONIC Verified 10/26/21 01:13 [From Trileptal] Penicillins Allergy Mild UNKNOWN Verified 10/26/21 01:13 perphenazine [Perphenazine] Allergy Mild UNKNOWN Verified 10/26/21 01:13 Assessment & Plan Assessment & Plan (1) Schizoaffective disorder, bipolar type: Status: Acute Code(s): F25.0 - Schizoaffective disorder, bipolar type Assessment and Plan: Ms. Mello is a 51 year-old woman with long hx of schizoaffective disorder bipolar type who was brought to [facility] ED for evaluation after her ACCS worker requested crisis eval as pt presented as increasingly more disorganized, labile, religiously preoccupied which is her usual presentation when she decompensates. PLAN 1. Admit to M3, CV, 15 minutes checks for safety 2. restarted medications combination of haldol, does have Invega Sustenna 234mg IM qmonth last given 10/09, next due 11/06. 3. started tegretol 200 BID 10/24 for mood stabilization, dosing increased to 300 mg BID on 10/25, on to 400 BID on 10/27. 4. HS klonopin decreased from 2 mg to 1.5 mg as of 10/25, to 1 mg as of 10/26, to 0.5 mg as of 10/28. 5. Aftercare planning. may go to respite once stabilized. I spent minutes with the patient and/or on the patient floor today, greater than?50% of which was spent counseling/coordinating care. Reason for contiued inpatient stay Substantial Risk for: inability to function and rapid decompensation
[2021-10-30] MEDS: Albuterol Sulfate 90 MCG 8 GM INHALER 2 PUFF INHALE (16:44)
[2021-10-30 20:55] VITALS: BP 113/64; PULSE 104; RESP 16; TEMP 36.7; O2SAT 95
[2021-10-30] MEDS: clonazePAM 0.5 MG TABLET PO (20:58)
[2021-10-31] MEDS: Fluticasone Propionate Nasal 16 GM SPRAY 2 SPRAY NOSTRIL-B (09:24)
[2021-10-31 09:25] VITALS: BP 122/71; PULSE 100; RESP 18; TEMP 36.7; O2SAT 95
[2021-10-31] MEDS: carBAMazepine ER 200 MG TAB.ER.12H 400 MG PO ×2 (09:26→21:40)
[2021-10-31] MEDS: busPIRone HCl 10 MG TABLET PO ×2 (09:26→21:40)
[2021-10-31] MEDS: HaloperidoL 5 MG TABLET 10 MG PO ×2 (09:26→21:39)
[2021-10-31] MEDS: Multivitamin TABLET 1 TAB PO (09:26)
[2021-10-31] MEDS: Nicotine 21 MG PATCH.TD24 TRANSDERMA (09:28)
--- NOTE | 2021-10-31 11:35 | P.PNPSI_ITS ---
Subjective Subjective Date of Service: 10/31/21 Reason For Visit: torres Subjective Notes: Conditional Voluntary Interim History: Pt singling loudly and dancing in room. Pt reports she can hear some people telepathically. She reports she is sleeping and eating well. Some insight as to need for treatment in that she reports she notes that medications help her not to talk too fast. She also reports think more clearly with medications. Per nursing, visible in the unit, no behavioral concerns. No SI/HI. Pt less intrusive with peers, less disruptive in unit. Medication Compliance: Yes Side effects from medications: No Attending Groups: Intermittent Review of Systems Constitutional: Denies fatigue Eyes: Denies no additional eye complaints Cardiovascular: Denies chest pain, Denies chest pain with activity, Denies Epigastric Pain, Denies rapid heart rate, Denies lightheadedness and Denies dyspnea Respiratory: Denies chest congestion and Denies dyspnea Gastrointestinal: Denies abdominal pain, Denies constipation, Denies heartburn, Denies diarrhea and Denies vomiting Musculoskeletal: Denies no additional musculoskeletal complaints Endocrine: Denies fatigue Mental Status Exam Mental Status Exam Narrative: Appearance: casually groomed, fair hygiene in NAD Behavior: cooperative psychomotor: no PMA/PMR Speech:mostly clear, not pressured, loud at times, spontaneous Thought process: tangential Thought content: no delusions or paranoia clearly articulated Mood: euthymic Affect: non-labile, normo-intense SI:none expressed HI:none expresssed VH/AH:none expressed Insight/judgment:impaired x 2 Memory/cog: alert, oriented x 3. Diagnostics Vital Signs (24Hr): Vital Signs - 24 hr 10/30/21 20:55 10/31/21 09:25 Temperature 98.0 F 98.0 F Pulse Rate 104 H 100 Respiratory Rate 16 18 Blood Pressure 113/64 122/71 Pulse Oximetry 95 95 BMI result Body Mass Index 34.2 Medications Medications Current Medications Acetaminophen (Acetaminophen 325 Mg Tablet) 650 mg PO Q6H PRN PRN Reason: Headache/Pain Mild Scale (1-3) Last Admin: 10/22/21 15:47 Dose: 650 mg Documented by: Al Hydroxide/Mg Hydroxide (Magnesium Hydrox/Alum Hydrox 30 Ml Oral.Susp) 30 ml PO Q6H PRN PRN Reason: Heartburn/Nausea Albuterol Sulfate (Albuterol Sulfate 90 Mcg 8 Gm Inhaler) 2 puff INHALE Q4H PRN PRN Reason: Wheezing Last Admin: 10/30/21 16:44 Dose: 2 puff Documented by: Benztropine Mesylate (Benztropine Mesylate 0.5 Mg Tablet) 0.5 mg PO BID PRN PRN Reason: Extrapyramidal Effects/Symptoms Last Admin: 10/27/21 22:17 Dose: 0.5 mg Documented by: Buspirone HCl (Buspirone Hcl 10 Mg Tablet) 10 mg PO BID [facility] Last Admin: 10/31/21 09:26 Dose: 10 mg Documented by: Calcium Carbonate (Calcium Carbonate 500 Mg Tablet) 500 mg PO BID [facility] Last Admin: 10/31/21 09:26 Dose: 500 mg Documented by: Carbamazepine (Carbamazepine Er 200 Mg Tab.Er.12h) 400 mg PO BID [facility] Last Admin: 10/31/21 09:26 Dose: 400 mg Documented by: Clonazepam (Clonazepam 0.5 Mg Tablet) 0.5 mg PO BEDTIME [facility] Last Admin: 10/30/21 20:58 Dose: 0.5 mg Documented by: Fluticasone Propionate (Fluticasone Propionate Nasal 16 Gm [place]) 2 spray NOSTRIL-B DAILY [facility] Last Admin: 10/31/21 09:24 Dose: 2 spray Documented by: Haloperidol (Haloperidol 5 Mg Tablet) 10 mg PO BID [facility] Last Admin: 10/31/21 09:26 Dose: 10 mg Documented by: Haloperidol (Haloperidol 5 Mg Tablet) 5 mg PO Q2H PRN PRN Reason: agitation Last Admin: 10/30/21 04:01 Dose: 5 mg Documented by: Hydroxyzine HCl (Hydroxyzine Hcl 25 Mg Tablet) 25 mg PO BEDTIME PRN PRN Reason: Anxiety Last Admin: 10/27/21 22:17 Dose: 25 mg Documented by: Lorazepam (Lorazepam 1 Mg Tablet) 2 mg PO Q4H PRN PRN Reason: agitation Last Admin: 10/30/21 16:44 Dose: 2 mg Documented by: Magnesium Hydroxide (Milk Of Magnesia 30 Ml Oral.Susp) 30 ml PO DAILY PRN PRN Reason: Constipation Last Admin: 10/26/21 17:18 Dose: 30 ml Documented by: Multivitamins/Vitamin C (Multivitamin Tablet) 1 tab PO DAILY [facility] Last Admin: 10/31/21 09:26 Dose: 1 tab Documented by: Nicotine (Nicotine 21 Mg Patch.Td24) 21 mg TRANSDERMA DAILY [facility] Last Admin: 10/31/21 09:28 Dose: 21 mg Documented by: Nicotine Polacrilex (Nicotine Polacrilex 2 Mg Gum) 2 mg BUCCAL Q2H PRN PRN Reason: Nicotine Cravings Last Admin: 10/30/21 16:44 Dose: 2 mg Documented by: Olanzapine (Olanzapine Odt 10 Mg Tab.Rapdis) 10 mg TRANSLINGU Q6H PRN PRN Reason: agitation Paliperidone Palmitate (Paliperidone Palmitate 234 Mg/1.5 Ml Syringe) 234 mg IM Q28D [facility] Polyethylene Glycol (Polyethylene Glycol 3350 17 Gm Powd.Pack) 17 gm PO DAILY PRN PRN Reason: Constipation Last Admin: 10/26/21 13:39 Dose: 17 gm Documented by: Tiotropium [place] (Tiotropium [place] 18 Mcg Cap.W.Dev) 1 puff INHALE RDAILY [facility] Last Admin: 10/31/21 09:25 Dose: 1 puff Documented by: Trazodone HCl (Trazodone Hcl 50 Mg Tablet) 50 mg PO BEDTIME PRN PRN Reason: Insomnia Last Admin: 10/27/21 22:17 Dose: 50 mg Documented by: Allergies Allergies Allergy/AdvReac Type Severity Reaction Status Date / Time oxcarbazepine Allergy Mild DYSTONIC Verified 10/26/21 01:13 [From Trileptal] Penicillins Allergy Mild UNKNOWN Verified 10/26/21 01:13 perphenazine [Perphenazine] Allergy Mild UNKNOWN Verified 10/26/21 01:13 Assessment & Plan Assessment & Plan (1) Schizoaffective disorder, bipolar type: Status: Acute Code(s): F25.0 - Schizoaffective disorder, bipolar type Assessment and Plan: Ms. Mello is a 51 year-old woman with long hx of schizoaffective disorder bipolar type who was brought to [facility] ED for evaluation after her ACCS worker requested crisis eval as pt presented as increasingly more disorganized, labile, religiously preoccupied which is her usual presentation when she decompensates. PLAN 1. Admit to M3, CV, 15 minutes checks for safety 2. restarted medications combination of haldol, does have Invega Sustenna 234mg IM qmonth last given 10/09, next due 11/06. 3. started tegretol 200 BID 10/24 for mood stabilization, dosing increased to 300 mg BID on 10/25, on to 400 BID on 10/27. 4. HS klonopin decreased from 2 mg to 1.5 mg as of 10/25, to 1 mg as of 10/26, to 0.5 mg as of 10/28. 5. Aftercare planning. may go to respite once stabilized. 10/31- pt less hyperverbal, less labile, some insight into symptoms and need for treatment. No SI/HI. still thinks she can hear people talking to her telepathically. I spent minutes with the patient and/or on the patient floor today, greater than?50% of which was spent counseling/coordinating care. Reason for contiued inpatient stay Substantial Risk for: inability to function
[2021-10-31] MEDS: LORazepam 1 MG TABLET 2 MG PO (15:26)
[2021-10-31] MEDS: clonazePAM 0.5 MG TABLET PO (21:40)
[2021-10-31 21:45] VITALS: BP 121/56; PULSE 80; TEMP 36.6; O2SAT 97
[2021-11-01 06:00] VITALS: BP 176/91; PULSE 90; RESP 18; TEMP 36.6; O2SAT 96
[2021-11-01] MEDS: Fluticasone Propionate Nasal 16 GM SPRAY 2 SPRAY NOSTRIL-B (08:58)
[2021-11-01] MEDS: Albuterol Sulfate 90 MCG 8 GM INHALER 2 PUFF INHALE (08:58)
[2021-11-01] MEDS: Nicotine 21 MG PATCH.TD24 TRANSDERMA (09:00)
[2021-11-01] MEDS: busPIRone HCl 10 MG TABLET PO ×2 (09:01→22:08)
[2021-11-01] MEDS: Multivitamin TABLET 1 TAB PO (09:01)
[2021-11-01] MEDS: HaloperidoL 5 MG TABLET 10 MG PO ×2 (09:02→22:07)
[2021-11-01] MEDS: carBAMazepine ER 200 MG TAB.ER.12H 400 MG PO ×2 (09:02→22:07)
[2021-11-01] MEDS: HaloperidoL 5 MG TABLET PO (13:16)
[2021-11-01] MEDS: LORazepam 1 MG TABLET 2 MG PO (14:55)
[2021-11-01] MEDS: Nicotine Polacrilex 2 MG GUM BUCCAL (16:40)
--- NOTE | 2021-11-01 16:49 | HO.PSYCHPN ---
Subjective Subjective Date of Service: 11/01/21 Reason For Visit: torres Diagnostics Vital Signs (24Hr): Vital Signs - 24 hr 10/31/21 21:45 11/01/21 06:00 Temperature 97.8 F 97.8 F Pulse Rate 80 90 Respiratory Rate 18 Blood Pressure 121/56 L 176/91 H Pulse Oximetry 97 96 BMI result Body Mass Index 34.2 Labs Results: 11/17/21 08:42 11/17/21 08:42 Medications Medications Current Medications Acetaminophen (Acetaminophen 325 Mg Tablet) 650 mg PO Q6H PRN PRN Reason: Headache/Pain Mild Scale (1-3) Last Admin: 10/22/21 15:47 Dose: 650 mg Documented by: Al Hydroxide/Mg Hydroxide (Magnesium Hydrox/Alum Hydrox 30 Ml Oral.Susp) 30 ml PO Q6H PRN PRN Reason: Heartburn/Nausea Albuterol Sulfate (Albuterol Sulfate 90 Mcg 8 Gm Inhaler) 2 puff INHALE Q4H PRN PRN Reason: Wheezing Last Admin: 11/01/21 08:58 Dose: 2 puff Documented by: Benztropine Mesylate (Benztropine Mesylate 0.5 Mg Tablet) 0.5 mg PO BID PRN PRN Reason: Extrapyramidal Effects/Symptoms Last Admin: 10/27/21 22:17 Dose: 0.5 mg Documented by: Buspirone HCl (Buspirone Hcl 10 Mg Tablet) 10 mg PO BID [facility] Last Admin: 11/01/21 09:01 Dose: 10 mg Documented by: Calcium Carbonate (Calcium Carbonate 500 Mg Tablet) 500 mg PO BID [facility] Last Admin: 11/01/21 09:02 Dose: 500 mg Documented by: Carbamazepine (Carbamazepine Er 200 Mg Tab.Er.12h) 400 mg PO BID [facility] Last Admin: 11/01/21 09:02 Dose: 400 mg Documented by: Clonazepam (Clonazepam 0.5 Mg Tablet) 0.5 mg PO BEDTIME [facility] Last Admin: 10/31/21 21:40 Dose: 0.5 mg Documented by: Fluticasone Propionate (Fluticasone Propionate Nasal 16 Gm [place]) 2 spray NOSTRIL-B DAILY [facility] Last Admin: 11/01/21 08:58 Dose: 2 spray Documented by: Haloperidol (Haloperidol 5 Mg Tablet) 10 mg PO BID [facility] Last Admin: 11/01/21 09:02 Dose: 10 mg Documented by: Haloperidol (Haloperidol 5 Mg Tablet) 5 mg PO Q2H PRN PRN Reason: agitation Last Admin: 11/01/21 13:16 Dose: 5 mg Documented by: Hydroxyzine HCl (Hydroxyzine Hcl 25 Mg Tablet) 25 mg PO BEDTIME PRN PRN Reason: Anxiety Last Admin: 10/27/21 22:17 Dose: 25 mg Documented by: Lorazepam (Lorazepam 1 Mg Tablet) 2 mg PO Q4H PRN PRN Reason: agitation Last Admin: 11/01/21 14:55 Dose: 2 mg Documented by: Magnesium Hydroxide (Milk Of Magnesia 30 Ml Oral.Susp) 30 ml PO DAILY PRN PRN Reason: Constipation Last Admin: 10/26/21 17:18 Dose: 30 ml Documented by: Multivitamins/Vitamin C (Multivitamin Tablet) 1 tab PO DAILY [facility] Last Admin: 11/01/21 09:01 Dose: 1 tab Documented by: Nicotine (Nicotine 21 Mg Patch.Td24) 21 mg TRANSDERMA DAILY [facility] Last Admin: 11/01/21 09:00 Dose: 21 mg Documented by: Nicotine Polacrilex (Nicotine Polacrilex 2 Mg Gum) 2 mg BUCCAL Q2H PRN PRN Reason: Nicotine Cravings Last Admin: 11/01/21 16:40 Dose: 2 mg Documented by: Olanzapine (Olanzapine Odt 10 Mg Tab.Rapdis) 10 mg TRANSLINGU Q6H PRN PRN Reason: agitation Paliperidone Palmitate (Paliperidone Palmitate 234 Mg/1.5 Ml Syringe) 234 mg IM Q28D [facility] Polyethylene Glycol (Polyethylene Glycol 3350 17 Gm Powd.Pack) 17 gm PO DAILY PRN PRN Reason: Constipation Last Admin: 10/26/21 13:39 Dose: 17 gm Documented by: Tiotropium [place] (Tiotropium [place] 18 Mcg Cap.W.Dev) 1 puff INHALE RDAILY [facility] Last Admin: 11/01/21 08:59 Dose: 1 puff Documented by: Trazodone HCl (Trazodone Hcl 50 Mg Tablet) 50 mg PO BEDTIME PRN PRN Reason: Insomnia Last Admin: 10/27/21 22:17 Dose: 50 mg Documented by: Allergies Allergies Allergy/AdvReac Type Severity Reaction Status Date / Time oxcarbazepine Allergy Mild DYSTONIC Verified 10/26/21 01:13 [From Trileptal] Penicillins Allergy Mild UNKNOWN Verified 10/26/21 01:13 perphenazine [Perphenazine] Allergy Mild UNKNOWN Verified 10/26/21 01:13 Assessment & Plan Assessment & Plan (1) Schizoaffective disorder, bipolar type: Status: Acute Code(s): F25.0 - Schizoaffective disorder, bipolar type Plan Ms. Mello is a 51 year-old woman with long hx of schizoaffective disorder bipolar type who was brought to [facility] ED for evaluation after her ACCS worker requested crisis eval as pt presented as increasingly more disorganized, labile, religiously preoccupied which is her usual presentation when she decompensates. PLAN 1. Admit to M3, CV, 15 minutes checks for safety 2. restarted medications combination of haldol, does have Invega Sustenna 234mg IM qmonth last given 10/09, next due 11/06. 3. started tegretol 200 BID 10/24 for mood stabilization, dosing increased to 300 mg BID on 10/25, on to 400 BID on 10/27. 4. HS klonopin decreased from 2 mg to 1.5 mg as of 10/25, to 1 mg as of 10/26, to 0.5 mg as of 10/28. 5. Aftercare planning. may go to respite once stabilized. 10/31- pt less hyperverbal, less labile, some insight into symptoms and need for treatment. No SI/HI. still thinks she can hear people talking to her telepathically. I spent minutes with the patient and/or on the patient floor today, greater than?50% of which was spent counseling/coordinating care. Reason for contiued inpatient stay Substantial Risk for: other
[2021-11-01] MEDS: clonazePAM 0.5 MG TABLET PO (22:08)
[2021-11-02 06:00] VITALS: BP 144/80; PULSE 84; RESP 16; TEMP 36.3; O2SAT 95
[2021-11-02] MEDS: HaloperidoL 5 MG TABLET 10 MG PO ×2 (07:47→20:33)
[2021-11-02] MEDS: Nicotine 21 MG PATCH.TD24 TRANSDERMA (07:48)
[2021-11-02] MEDS: Multivitamin TABLET 1 TAB PO (07:48)
[2021-11-02] MEDS: carBAMazepine ER 200 MG TAB.ER.12H 400 MG PO ×2 (07:48→20:33)
[2021-11-02] MEDS: Nicotine Polacrilex 2 MG GUM BUCCAL (07:48)
[2021-11-02] MEDS: busPIRone HCl 10 MG TABLET PO ×2 (07:48→20:33)
[2021-11-02] MEDS: Fluticasone Propionate Nasal 16 GM SPRAY 2 SPRAY NOSTRIL-B (07:49)
[2021-11-02] MEDS: Albuterol Sulfate 90 MCG 8 GM INHALER 2 PUFF INHALE ×2 (07:49→16:19)
[2021-11-02] MEDS: HaloperidoL 5 MG TABLET PO (11:00)
[2021-11-02] MEDS: LORazepam 1 MG TABLET 2 MG PO (11:00)
--- NOTE | 2021-11-02 14:16 | HO.PSYCHPN ---
Subjective Subjective Date of Service: 11/02/21 Reason For Visit: torres Subjective Notes: Conditional Voluntary Medical Problems Affecting Mental Status: No Interim History: Elated. Bright wig and clothing and make up. Labile. tearful. Needed prn medications as distressed by same. Told staff writer he looked like Hari Mayes and proposed. Seeked lots of reassurance its called torres I think . Sleep has been better. No med concerns Medication Compliance: Yes Side effects from medications: No Attending Groups: Intermittent Review of Systems Acute medical concerns: No Review of Systems Review of Systems unremarkable Mental Status Exam Mental Status Exam Narrative: Brightly colored clothes, make up and wig. Pressured speech and flight ofg ideas. Elated, tearful. No SI, HI. No overt delusions or AH. Insight fair. Diagnostics Vital Signs (24Hr): Vital Signs - 24 hr 11/02/21 06:00 Temperature 97.4 F Pulse Rate 84 Respiratory Rate 16 Blood Pressure 144/80 H Pulse Oximetry 95 BMI result Body Mass Index 34.2 Medications Medications Current Medications Acetaminophen (Acetaminophen 325 Mg Tablet) 650 mg PO Q6H PRN PRN Reason: Headache/Pain Mild Scale (1-3) Last Admin: 10/22/21 15:47 Dose: 650 mg Documented by: Al Hydroxide/Mg Hydroxide (Magnesium Hydrox/Alum Hydrox 30 Ml Oral.Susp) 30 ml PO Q6H PRN PRN Reason: Heartburn/Nausea Albuterol Sulfate (Albuterol Sulfate 90 Mcg 8 Gm Inhaler) 2 puff INHALE Q4H PRN PRN Reason: Wheezing Last Admin: 11/02/21 07:49 Dose: 2 puff Documented by: Benztropine Mesylate (Benztropine Mesylate 0.5 Mg Tablet) 0.5 mg PO BID PRN PRN Reason: Extrapyramidal Effects/Symptoms Last Admin: 10/27/21 22:17 Dose: 0.5 mg Documented by: Buspirone HCl (Buspirone Hcl 10 Mg Tablet) 10 mg PO BID [facility] Last Admin: 11/02/21 07:48 Dose: 10 mg Documented by: Calcium Carbonate (Calcium Carbonate 500 Mg Tablet) 500 mg PO BID [facility] Last Admin: 11/02/21 07:47 Dose: 500 mg Documented by: Carbamazepine (Carbamazepine Er 200 Mg Tab.Er.12h) 400 mg PO BID [facility] Last Admin: 11/02/21 07:48 Dose: 400 mg Documented by: Clonazepam (Clonazepam 0.5 Mg Tablet) 0.5 mg PO BEDTIME [facility] Last Admin: 11/01/21 22:08 Dose: 0.5 mg Documented by: Fluticasone Propionate (Fluticasone Propionate Nasal 16 Gm [place]) 2 spray NOSTRIL-B DAILY [facility] Last Admin: 11/02/21 07:49 Dose: 2 spray Documented by: Haloperidol (Haloperidol 5 Mg Tablet) 10 mg PO BID [facility] Last Admin: 11/02/21 07:47 Dose: 10 mg Documented by: Haloperidol (Haloperidol 5 Mg Tablet) 5 mg PO Q2H PRN PRN Reason: agitation Last Admin: 11/02/21 11:00 Dose: 5 mg Documented by: Hydroxyzine HCl (Hydroxyzine Hcl 25 Mg Tablet) 25 mg PO BEDTIME PRN PRN Reason: Anxiety Last Admin: 10/27/21 22:17 Dose: 25 mg Documented by: Lorazepam (Lorazepam 1 Mg Tablet) 2 mg PO Q4H PRN PRN Reason: agitation Last Admin: 11/02/21 11:00 Dose: 2 mg Documented by: Magnesium Hydroxide (Milk Of Magnesia 30 Ml Oral.Susp) 30 ml PO DAILY PRN PRN Reason: Constipation Last Admin: 10/26/21 17:18 Dose: 30 ml Documented by: Multivitamins/Vitamin C (Multivitamin Tablet) 1 tab PO DAILY [facility] Last Admin: 11/02/21 07:48 Dose: 1 tab Documented by: Nicotine (Nicotine 21 Mg Patch.Td24) 21 mg TRANSDERMA DAILY [facility] Last Admin: 11/02/21 07:48 Dose: 21 mg Documented by: Nicotine Polacrilex (Nicotine Polacrilex 2 Mg Gum) 2 mg BUCCAL Q2H PRN PRN Reason: Nicotine Cravings Last Admin: 11/02/21 07:48 Dose: 2 mg Documented by: Olanzapine (Olanzapine Odt 10 Mg Tab.Rapdis) 10 mg TRANSLINGU Q6H PRN PRN Reason: agitation Paliperidone Palmitate (Paliperidone Palmitate 234 Mg/1.5 Ml Syringe) 234 mg IM Q28D [facility] Polyethylene Glycol (Polyethylene Glycol 3350 17 Gm Powd.Pack) 17 gm PO DAILY PRN PRN Reason: Constipation Last Admin: 10/26/21 13:39 Dose: 17 gm Documented by: Tiotropium [place] (Tiotropium [place] 18 Mcg Cap.W.Dev) 1 puff INHALE RDAILY [facility] Last Admin: 11/02/21 07:49 Dose: 1 puff Documented by: Trazodone HCl (Trazodone Hcl 50 Mg Tablet) 50 mg PO BEDTIME PRN PRN Reason: Insomnia Last Admin: 10/27/21 22:17 Dose: 50 mg Documented by: Allergies Allergies Allergy/AdvReac Type Severity Reaction Status Date / Time oxcarbazepine Allergy Mild DYSTONIC Verified 10/26/21 01:13 [From Trileptal] Penicillins Allergy Mild UNKNOWN Verified 10/26/21 01:13 perphenazine [Perphenazine] Allergy Mild UNKNOWN Verified 10/26/21 01:13 Assessment & Plan Assessment & Plan (1) Schizoaffective disorder, bipolar type: Status: Acute Code(s): F25.0 - Schizoaffective disorder, bipolar type Assessment and Plan: Ms. Mello is a 51 year-old woman with long hx of schizoaffective disorder bipolar type who was brought to [facility] ED for evaluation after her ACCS worker requested crisis eval as pt presented as increasingly more disorganized, labile, religiously preoccupied which is her usual presentation when she decompensates. PLAN 1. Admit to M3, CV, 15 minutes checks for safety 2. restarted medications combination of haldol, does have Invega Sustenna 234mg IM qmonth last given 10/09, next due 11/06. 3. started tegretol 200 BID 10/24 for mood stabilization, dosing increased to 300 mg BID on 10/25, on to 400 BID on 10/27. 4. HS klonopin decreased from 2 mg to 1.5 mg as of 10/25, to 1 mg as of 10/26, to 0.5 mg as of 10/28. 5. Aftercare planning. may go to respite once stabilized. 10/31- pt less hyperverbal, less labile, some insight into symptoms and need for treatment. No SI/HI. still thinks she can hear people talking to her telepathically. 11/02: no changes to primary team tx plan I spent minutes with the patient and/or on the patient floor today, greater than?50% of which was spent counseling/coordinating care. Reason for contiued inpatient stay Substantial Risk for: inability to function and rapid decompensation
[2021-11-02] MEDS: polyethylene glycoL 3350 17 GM POWD.PACK PO (17:53)
[2021-11-02 20:19] VITALS: PULSE 87; TEMP 36.6; O2SAT 97
[2021-11-02] MEDS: clonazePAM 0.5 MG TABLET PO (20:33)
[2021-11-03] MEDS: Nicotine 21 MG PATCH.TD24 TRANSDERMA (09:14)
[2021-11-03] MEDS: Fluticasone Propionate Nasal 16 GM SPRAY 2 SPRAY NOSTRIL-B (09:15)
[2021-11-03] MEDS: Multivitamin TABLET 1 TAB PO (09:15)
[2021-11-03] MEDS: Albuterol Sulfate 90 MCG 8 GM INHALER 2 PUFF INHALE ×2 (09:15→15:03)
[2021-11-03] MEDS: busPIRone HCl 10 MG TABLET PO ×2 (09:16→20:26)
[2021-11-03] MEDS: HaloperidoL 5 MG TABLET 10 MG PO ×2 (09:16→20:26)
[2021-11-03] MEDS: carBAMazepine ER 200 MG TAB.ER.12H 400 MG PO ×2 (09:16→20:26)
--- NOTE | 2021-11-03 13:07 | P.PNPSI_ITS ---
Subjective Subjective Date of Service: 11/03/21 Reason For Visit: torres Interim History: pt found lying in her bed resting, not asleep. easily roused. tangential, talking about how she is sad bcse her mother will be cancelling the mother's phone service due to cost. asking about going straight back to halfway rather than to respite first. asking for MD to be in touch with her former psych MD, whom she reports has since retired. discuss her RIVERA on , she asks for lidocaine gel for the injection site. reports she is feeling well, mood is good, sleeping well, getting along with others. agreeable to blood draw tomorrow. per staff, denies AVH yet RIS. talkative with peers and staff. denies dep/anx. sleeping well. singing and dancing. Mental Status Exam Mental Status Exam Narrative: Appearance: casually groomed, fair hygiene in NAD Behavior: cooperative psychomotor: no PMA/PMR Speech:increased rate and amount, loud at times, spontaneous Thought process: tangential Thought content: no delusions or paranoia clearly articulated Mood: euthymic Affect: non-labile, normo-intense SI:none expressed HI:none expresssed VH/AH:none expressed Insight/judgment:impaired x 2 Memory/cog: alert, oriented x 3. Diagnostics Vital Signs (24Hr): Vital Signs - 24 hr 11/02/21 20:19 Temperature 97.9 F Pulse Rate 87 Pulse Oximetry 97 BMI result Body Mass Index 34.2 Medications Medications Current Medications Acetaminophen (Acetaminophen 325 Mg Tablet) 650 mg PO Q6H PRN PRN Reason: Headache/Pain Mild Scale (1-3) Last Admin: 10/22/21 15:47 Dose: 650 mg Documented by: Al Hydroxide/Mg Hydroxide (Magnesium Hydrox/Alum Hydrox 30 Ml Oral.Susp) 30 ml PO Q6H PRN PRN Reason: Heartburn/Nausea Albuterol Sulfate (Albuterol Sulfate 90 Mcg 8 Gm Inhaler) 2 puff INHALE Q4H PRN PRN Reason: Wheezing Last Admin: 11/03/21 09:15 Dose: 2 puff Documented by: Benztropine Mesylate (Benztropine Mesylate 0.5 Mg Tablet) 0.5 mg PO BID PRN PRN Reason: Extrapyramidal Effects/Symptoms Last Admin: 10/27/21 22:17 Dose: 0.5 mg Documented by: Buspirone HCl (Buspirone Hcl 10 Mg Tablet) 10 mg PO BID ON LICENSE OF [facility] Last Admin: 11/03/21 09:16 Dose: 10 mg Documented by: Calcium Carbonate (Calcium Carbonate 500 Mg Tablet) 500 mg PO BID ON LICENSE OF [facility] Last Admin: 11/03/21 09:16 Dose: 500 mg Documented by: Carbamazepine (Carbamazepine Er 200 Mg Tab.Er.12h) 400 mg PO BID ON LICENSE OF [facility] Last Admin: 11/03/21 09:16 Dose: 400 mg Documented by: Fluticasone Propionate (Fluticasone Propionate Nasal 16 Gm [place]) 2 spray NOSTRIL-B DAILY ON LICENSE OF [facility] Last Admin: 11/03/21 09:15 Dose: 2 spray Documented by: Haloperidol (Haloperidol 5 Mg Tablet) 10 mg PO BID ON LICENSE OF [facility] Last Admin: 11/03/21 09:16 Dose: 10 mg Documented by: Haloperidol (Haloperidol 5 Mg Tablet) 5 mg PO Q2H PRN PRN Reason: agitation Last Admin: 11/02/21 11:00 Dose: 5 mg Documented by: Hydroxyzine HCl (Hydroxyzine Hcl 25 Mg Tablet) 25 mg PO BEDTIME PRN PRN Reason: Anxiety Last Admin: 10/27/21 22:17 Dose: 25 mg Documented by: Lorazepam (Lorazepam 1 Mg Tablet) 2 mg PO Q4H PRN PRN Reason: agitation Last Admin: 11/02/21 11:00 Dose: 2 mg Documented by: Magnesium Hydroxide (Milk Of Magnesia 30 Ml Oral.Susp) 30 ml PO DAILY PRN PRN Reason: Constipation Last Admin: 10/26/21 17:18 Dose: 30 ml Documented by: Multivitamins/Vitamin C (Multivitamin Tablet) 1 tab PO DAILY ON LICENSE OF [facility] Last Admin: 11/03/21 09:15 Dose: 1 tab Documented by: Nicotine (Nicotine 21 Mg Patch.Td24) 21 mg TRANSDERMA DAILY ON LICENSE OF [facility] Last Admin: 11/03/21 09:14 Dose: 21 mg Documented by: Nicotine Polacrilex (Nicotine Polacrilex 2 Mg Gum) 2 mg BUCCAL Q2H PRN PRN Reason: Nicotine Cravings Last Admin: 11/02/21 07:48 Dose: 2 mg Documented by: Olanzapine (Olanzapine Odt 10 Mg Tab.Rapdis) 10 mg TRANSLINGU Q6H PRN PRN Reason: agitation Paliperidone Palmitate (Paliperidone Palmitate 234 Mg/1.5 Ml Syringe) 234 mg IM Q28D ON LICENSE OF [facility] Polyethylene Glycol (Polyethylene Glycol 3350 17 Gm Powd.Pack) 17 gm PO DAILY PRN PRN Reason: Constipation Last Admin: 11/02/21 17:53 Dose: 17 gm Documented by: Tiotropium [place] (Tiotropium [place] 18 Mcg Cap.W.Dev) 1 puff INHALE RDAILY ON LICENSE OF [facility] Last Admin: 11/03/21 09:15 Dose: 1 puff Documented by: Trazodone HCl (Trazodone Hcl 50 Mg Tablet) 50 mg PO BEDTIME PRN PRN Reason: Insomnia Last Admin: 10/27/21 22:17 Dose: 50 mg Documented by: Allergies Allergies Allergy/AdvReac Type Severity Reaction Status Date / Time oxcarbazepine Allergy Mild DYSTONIC Verified 10/26/21 01:13 [From Trileptal] Penicillins Allergy Mild UNKNOWN Verified 10/26/21 01:13 perphenazine [Perphenazine] Allergy Mild UNKNOWN Verified 10/26/21 01:13 Assessment & Plan Assessment & Plan (1) Schizoaffective disorder, bipolar type: Status: Acute Code(s): F25.0 - Schizoaffective disorder, bipolar type Assessment and Plan: Ms. Mello is a 51 year-old woman with long hx of schizoaffective disorder bipolar type who was brought to [facility] ED for evaluation after her ACCS worker re quested crisis eval as pt presented as increasingly more disorganized, labile, religiously preoccupied which is her usual presentation when she decompensates. PLAN 1. Admit to M3, CV, 15 minutes checks for safety 2. restarted medications combination of haldol, does have Invega Sustenna 234mg IM qmonth last given 10/09, next due 11/06. 3. started tegretol 200 BID 10/24 for mood stabilization, dosing increased to 300 mg BID on 10/25, on to 400 BID on 10/27. 4. HS klonopin decreased from 2 mg to 1.5 mg as of 10/25, to 1 mg as of 10/26, to 0.5 mg as of 10/28. 5. Aftercare planning. may go to respite once stabilized. I spent minutes with the patient and/or on the patient floor today, greater than?50% of which was spent counseling/coordinating care. Reason for contiued inpatient stay Substantial Risk for: inability to function and rapid decompensation
[2021-11-03] MEDS: LORazepam 1 MG TABLET 2 MG PO (18:59)
[2021-11-03 20:30] VITALS: RESP 16
[2021-11-04 07:36] LABS: MANUAL DIFF FLAG NO
[2021-11-04 07:42] LABS: Basophils Percent Auto 0.5 % (0-2); Eosinophils Absolute Auto 0.3 X10*3/uL (0.0-0.4); Eosinophils Percent Auto 4.5 % (0-4); Hematocrit 39.1 % (37.0-47.0); Hemoglobin 12.9 g/dl (12.0-16.0); Imm Gran Abs Auto 0.01 X10*3/uL (0.00-0.03); Imm Gran Pct Auto 0.2 % (0.0-0.4); Lymphocytes Absolute Auto 1.6 X10*3/uL (1.2-4.9); Lymphocytes Percent Auto 28.1 % (20-40); Mean Corpuscular Hemoglobin 27.7 pg (27.0-33.0); Mean Corpuscular Volume 84.1 fL (80.0-98.0); Mean Platelet Volume 9.7 fL (9.4-12.3); Monocytes Absolute Auto 0.5 X10*3/uL (0.1-1.2); Monocytes Percent Auto 8.7 % (2-11); Neutrophils Absolute Auto 3.4 x10*3/uL (2.0-8.3); Platelet Count 316 X10*3/uL (160-400); Red Blood Count 4.65 X10*6/uL (4.20-5.50); Red Cell Distribution Width 12.9 % (11.0-16.0); White Blood Count 5.8 X10*3/uL (4.8-10.8)
[2021-11-04 07:55] VITALS: BP 130/74; PULSE 93; RESP 18; TEMP 36.3; O2SAT 97
[2021-11-04] MEDS: Fluticasone Propionate Nasal 16 GM SPRAY 2 SPRAY NOSTRIL-B (07:56)
[2021-11-04] MEDS: busPIRone HCl 10 MG TABLET PO ×2 (07:58→20:39)
[2021-11-04] MEDS: HaloperidoL 5 MG TABLET 10 MG PO ×2 (07:58→20:39)
[2021-11-04] MEDS: Nicotine 21 MG PATCH.TD24 TRANSDERMA (07:58)
[2021-11-04] MEDS: Multivitamin TABLET 1 TAB PO (07:59)
[2021-11-04] MEDS: carBAMazepine ER 200 MG TAB.ER.12H 400 MG PO (07:59)
[2021-11-04 08:06] LABS: Alanine Aminotransferase 18 U/L (0-31); Albumin Level 4.1 g/dL (3.5-5.0); Alkaline Phosphatase 93 U/L (39-117); Anion Gap 12 (12-20); Aspartate Amino Transferase 15 U/L (5-31); Bilirubin Direct < 0.2 mg/dL (0.0-0.5); Bilirubin Total 0.3 mg/dL (0.0-1.0); Blood Urea Nitrogen 13 mg/dL (9-16); Calcium 9.5 mg/dL (8.4-10.2); Carbon Dioxide 30 mmol/L (22-29); Chloride 101 mmol/L (96-108); Creatinine Clr Calc Pharmacy 82.5; Estimated Glomerular Filt Rate > 60; Glucose Fasting 96 mg/dL (60-99); Sodium 138 mmol/L (135-145); Total Protein 7.1 g/dL (6.5-8.0)
[2021-11-04 08:40] LABS: Carbamazepine Tegretol 5.7 mcg/mL (5.0-12.0)
[2021-11-04] MEDS: Paliperidone Palmitate 234 MG/1.5 ML SYRINGE IM (11:57)
--- NOTE | 2021-11-04 15:19 | P.PNPSI_ITS ---
Subjective Subjective Date of Service: 11/04/21 Reason For Visit: torres Interim History: pt found in her room, wig and make-up on, looking in her bed for a piece of paper which had her mother's phone number on it. MD provides her mother's number from the medical record. pt desiring discharge soon, MD suggests a few more days may be warranted. review tegretol level and need for dose increase, which patient accepts. no other complaints or requests. per staff, slept 8 hours overnight. pleasant, anxious re wanting DC. labile. denies AVH but appears to be RIS. PRN ativan for AH of children on the unit. paranoid re staff comments. hyper-restorationist. reported AVH last NOC. med- compliant, asking for invega sustenna now. Mental Status Exam Mental Status Exam Narrative: Appearance: casually groomed, fair hygiene in NAD; wig, make-up. Behavior: cooperative psychomotor: no PMA/PMR Speech:increased rate and amount, loud at times, spontaneous Thought process: more linear and topical Thought content: no delusions or paranoia clearly articulated Mood: euphoric Affect: non-labile, normo-intense SI:none expressed HI:none expressed VH/AH:none expressed Insight/judgment:impaired x 2 Memory/cog: alert, oriented x 3. Diagnostics Vital Signs (24Hr): Vital Signs - 24 hr 11/03/21 20:30 11/04/21 07:55 Temperature 97.3 F Pulse Rate 93 Respiratory Rate 16 18 Blood Pressure 130/74 Pulse Oximetry 97 BMI result Body Mass Index 34.2 Labs Results: 11/04/21 07:09 11/04/21 07:09 Labs: Laboratory Results - last 48 hr 11/04/21 11/04/21 07:09 07:09 WBC 5.8 RBC 4.65 Hgb 12.9 Hct 39.1 MCV 84.1 MCH 27.7 MCHC 33.0 RDW 12.9 Plt Count 316 MPV 9.7 Immature Gran % (Auto) 0.2 Neut % (Auto) 58.0 Lymph % (Auto) 28.1 [place] % (Auto) 8.7 Eos % (Auto) 4.5 H Baso % (Auto) 0.5 Lymph # (Auto) 1.6 [place] # (Auto) 0.5 Eos # (Auto) 0.3 Baso # (Auto) 0.0 Abs Immat Gran (auto) 0.01 Absolute Neuts (auto) 3.4 Absolute Nucleated RBC 0.000 Nucleated RBC % (auto) 0.0 Sodium 138 Potassium 5.0 Chloride 101 Carbon Dioxide 30 H Anion Gap 12 BUN 13 Creatinine 0.73 Estim Creat Clear Calc 82.5 Estimated GFR > 60 Fasting Glucose 96 Calcium 9.5 Total Bilirubin 0.3 Direct Bilirubin < 0.2 AST 15 ALT 18 Alkaline Phosphatase 93 Total Protein 7.1 Albumin 4.1 Carbamazepine 5.7 Medications Medications Current Medications Acetaminophen (Acetaminophen 325 Mg Tablet) 650 mg PO Q6H PRN PRN Reason: Headache/Pain Mild Scale (1-3) Last Admin: 10/22/21 15:47 Dose: 650 mg Documented by: Al Hydroxide/Mg Hydroxide (Magnesium Hydrox/Alum Hydrox 30 Ml Oral.Susp) 30 ml PO Q6H PRN PRN Reason: Heartburn/Nausea Albuterol Sulfate (Albuterol Sulfate 90 Mcg 8 Gm Inhaler) 2 puff INHALE Q4H PRN PRN Reason: Wheezing Last Admin: 11/03/21 15:03 Dose: 2 puff Documented by: Benztropine Mesylate (Benztropine Mesylate 0.5 Mg Tablet) 0.5 mg PO BID PRN PRN Reason: Extrapyramidal Effects/Symptoms Last Admin: 10/27/21 22:17 Dose: 0.5 mg Documented by: Buspirone HCl (Buspirone Hcl 10 Mg Tablet) 10 mg PO BID [facility] Last Admin: 11/04/21 07:58 Dose: 10 mg Documented by: Calcium Carbonate (Calcium Carbonate 500 Mg Tablet) 500 mg PO BID [facility] Last Admin: 11/04/21 07:58 Dose: 500 mg Documented by: Carbamazepine (Carbamazepine Er 200 Mg Tab.Er.12h) 600 mg PO BID [facility] Fluticasone Propionate (Fluticasone Propionate Nasal 16 Gm [place]) 2 spray NOSTRIL-B DAILY [facility] Last Admin: 11/04/21 07:56 Dose: 2 spray Documented by: Haloperidol (Haloperidol 5 Mg Tablet) 10 mg PO BID [facility] Last Admin: 11/04/21 07:58 Dose: 10 mg Documented by: Haloperidol (Haloperidol 5 Mg Tablet) 5 mg PO Q2H PRN PRN Reason: agitation Last Admin: 11/02/21 11:00 Dose: 5 mg Documented by: Hydroxyzine HCl (Hydroxyzine Hcl 25 Mg Tablet) 25 mg PO BEDTIME PRN PRN Reason: Anxiety Last Admin: 10/27/21 22:17 Dose: 25 mg Documented by: Lidocaine HCl (Lidocaine 4 % Cream Kit) 1 appl TOPICAL ONCE ONE; Protocol Stop: 11/05/21 08:01 Lorazepam (Lorazepam 1 Mg Tablet) 2 mg PO Q4H PRN PRN Reason: agitation Last Admin: 11/03/21 18:59 Dose: 2 mg Documented by: Magnesium Hydroxide (Milk Of Magnesia 30 Ml Oral.Susp) 30 ml PO DAILY PRN PRN Reason: Constipation Last Admin: 10/26/21 17:18 Dose: 30 ml Documented by: Multivitamins/Vitamin C (Multivitamin Tablet) 1 tab PO DAILY [facility] Last Admin: 11/04/21 07:59 Dose: 1 tab Documented by: Nicotine (Nicotine 21 Mg Patch.Td24) 21 mg TRANSDERMA DAILY [facility] Last Admin: 11/04/21 07:58 Dose: 21 mg Documented by: Nicotine Polacrilex (Nicotine Polacrilex 2 Mg Gum) 2 mg BUCCAL Q2H PRN PRN Reason: Nicotine Cravings Last Admin: 11/02/21 07:48 Dose: 2 mg Documented by: Olanzapine (Olanzapine Odt 10 Mg Tab.Rapdis) 10 mg TRANSLINGU Q6H PRN PRN Reason: agitation Paliperidone Palmitate (Paliperidone Palmitate 234 Mg/1.5 Ml Syringe) 234 mg IM Q28D [facility] Last Admin: 11/04/21 11:57 Dose: 234 mg Documented by: Polyethylene Glycol (Polyethylene Glycol 3350 17 Gm Powd.Pack) 17 gm PO DAILY PRN PRN Reason: Constipation Last Admin: 11/02/21 17:53 Dose: 17 gm Documented by: Tiotropium [place] (Tiotropium [place] 18 Mcg Cap.W.Dev) 1 puff INHALE RDAILY [facility] Last Admin: 11/04/21 07:57 Dose: 1 puff Documented by: Trazodone HCl (Trazodone Hcl 50 Mg Tablet) 50 mg PO BEDTIME PRN PRN Reason: Insomnia Last Admin: 10/27/21 22:17 Dose: 50 mg Documented by: Allergies Allergies Allergy/AdvReac Type Severity Reaction Status Date / Time oxcarbazepine Allergy Mild DYSTONIC Verified 10/26/21 01:13 [From Trileptal] Penicillins Allergy Mild UNKNOWN Verified 10/26/21 01:13 perphenazine [Perphenazine] Allergy Mild UNKNOWN Verified 10/26/21 01:13 Assessment & Plan Assessment & Plan (1) Schizoaffective disorder, bipolar type: Status: Acute Code(s): F25.0 - Schizoaffective disorder, bipolar type Assessment and Plan: Ms. Mello is a 51 year-old woman with long hx of schizoaffective disorder bipolar type who was brought to [facility] ED for evaluation after her ACCS worker requested crisis eval as pt presented as increasingly more disorganized, labile, religiously preoccupied which is her usual presentation when she decompensates. PLAN 1. Admit to M3, CV, 15 minutes checks for safety 2. restarted medications combination of haldol, does have Invega Sustenna 234mg IM qmonth last given 11/04. 3. started tegretol 200 BID 10/24 for mood stabilization, dosing increased to 300 mg BID on 10/25, on to 400 BID on 10/27, 600 BID as of 11/04. 4. HS klonopin decreased from 2 mg to 1.5 mg as of 10/25, to 1 mg as of 10/26, to 0.5 mg as of 10/28, then DCed entirely. 5. Aftercare planning. may go to respite once stabilized. I spent minutes with the patient and/or on the patient floor today, greater than?50% of which was spent counseling/coordinating care. Reason for contiued inpatient stay Substantial Risk for: inability to function and rapid decompensation
[2021-11-04] MEDS: LORazepam 1 MG TABLET 2 MG PO (16:24)
[2021-11-04] MEDS: HaloperidoL 5 MG TABLET PO (16:24)
[2021-11-04] MEDS: carBAMazepine ER 200 MG TAB.ER.12H 600 MG PO (20:40)
[2021-11-05 06:00] VITALS: BP 126/76; PULSE 96; RESP 16; TEMP 36.7; O2SAT 97
[2021-11-05] MEDS: Nicotine 21 MG PATCH.TD24 TRANSDERMA (08:20)
[2021-11-05] MEDS: carBAMazepine ER 200 MG TAB.ER.12H 600 MG PO ×2 (08:21→20:04)
[2021-11-05] MEDS: busPIRone HCl 10 MG TABLET PO ×2 (08:22→20:04)
[2021-11-05] MEDS: Multivitamin TABLET 1 TAB PO (08:22)
[2021-11-05] MEDS: HaloperidoL 5 MG TABLET 10 MG PO ×2 (08:22→20:04)
[2021-11-05] MEDS: Fluticasone Propionate Nasal 16 GM SPRAY 2 SPRAY NOSTRIL-B (08:22)
[2021-11-05] MEDS: LORazepam 1 MG TABLET PO (12:24)
[2021-11-05] MEDS: HaloperidoL 5 MG TABLET PO (12:24)
--- NOTE | 2021-11-05 12:25 | PC.NURSE ---
PT tangential, states I'm having a hard time, i'm not behaving, I asked to be restrained for 10 minutes but noone came, what kind of shampoo should I use to make my hair long? . Pt states that she thinks her sister is practicing witchcraft and thats why her hair is short. PT states that she has been misbehaving, that she was bad in the shower and slamming doors, but not really slamming them, I need to be restrained just to see what it feels like . PT offered and accepted PRN haldol and ativan.
[2021-11-05] MEDS: Albuterol Sulfate 90 MCG 8 GM INHALER 2 PUFF INHALE (15:07)
--- NOTE | 2021-11-05 16:12 | HO.PSYCHPN ---
Subjective Subjective Date of Service: 11/05/21 Reason For Visit: torres Interim History: pt visible and active in the milieu. hyperverbal, somewhat intrusive. impulsive, overly familiar. per staff, labile last evening, irritable. RIS, religiously preoccupied. slept NOC after getting haldol and ativan. Mental Status Exam Mental Status Exam Narrative: Appearance: casually groomed, fair hygiene in NAD; wig, make-up. Behavior: cooperative psychomotor: no PMA/PMR Speech:increased rate and amount, loud at times, spontaneous Thought process: more digressive, wandering, disjointed Thought content: no delusions or paranoia clearly articulated Mood: euphoric Affect: non-labile, normo-intense SI:none expressed HI:none expressed VH/AH:none expressed Insight/judgment:impaired x 2 Memory/cog: alert, oriented x 3. Diagnostics Vital Signs (24Hr): Vital Signs - 24 hr 11/05/21 06:00 Temperature 98.1 F Pulse Rate 96 Respiratory Rate 16 Blood Pressure 126/76 Pulse Oximetry 97 BMI result Body Mass Index 34.2 Labs Results: 11/04/21 07:09 11/04/21 07:09 Labs: Laboratory Results - last 48 hr 11/04/21 11/04/21 07:09 07:09 WBC 5.8 RBC 4.65 Hgb 12.9 Hct 39.1 MCV 84.1 MCH 27.7 MCHC 33.0 RDW 12.9 Plt Count 316 MPV 9.7 Immature Gran % (Auto) 0.2 Neut % (Auto) 58.0 Lymph % (Auto) 28.1 [place] % (Auto) 8.7 Eos % (Auto) 4.5 H Baso % (Auto) 0.5 Lymph # (Auto) 1.6 [place] # (Auto) 0.5 Eos # (Auto) 0.3 Baso # (Auto) 0.0 Abs Immat Gran (auto) 0.01 Absolute Neuts (auto) 3.4 Absolute Nucleated RBC 0.000 Nucleated RBC % (auto) 0.0 Sodium 138 Potassium 5.0 Chloride 101 Carbon Dioxide 30 H Anion Gap 12 BUN 13 Creatinine 0.73 Estim Creat Clear Calc 82.5 Estimated GFR > 60 Fasting Glucose 96 Calcium 9.5 Total Bilirubin 0.3 Direct Bilirubin < 0.2 AST 15 ALT 18 Alkaline Phosphatase 93 Total Protein 7.1 Albumin 4.1 Carbamazepine 5.7 Medications Medications Current Medications Acetaminophen (Acetaminophen 325 Mg Tablet) 650 mg PO Q6H PRN PRN Reason: Headache/Pain Mild Scale (1-3) Last Admin: 10/22/21 15:47 Dose: 650 mg Documented by: Al Hydroxide/Mg Hydroxide (Magnesium Hydrox/Alum Hydrox 30 Ml Oral.Susp) 30 ml PO Q6H PRN PRN Reason: Heartburn/Nausea Albuterol Sulfate (Albuterol Sulfate 90 Mcg 8 Gm Inhaler) 2 puff INHALE Q4H PRN PRN Reason: Wheezing Last Admin: 11/05/21 15:07 Dose: 2 puff Documented by: Benztropine Mesylate (Benztropine Mesylate 0.5 Mg Tablet) 0.5 mg PO BID PRN PRN Reason: Extrapyramidal Effects/Symptoms Last Admin: 10/27/21 22:17 Dose: 0.5 mg Documented by: Buspirone HCl (Buspirone Hcl 10 Mg Tablet) 10 mg PO BID COUNT [facility] Last Admin: 11/05/21 08:22 Dose: 10 mg Documented by: Calcium Carbonate (Calcium Carbonate 500 Mg Tablet) 500 mg PO BID COUNT [facility]CLUDES [facility] Last Admin: 11/05/21 08:22 Dose: 500 mg Documented by: Carbamazepine (Carbamazepine Er 200 Mg Tab.Er.12h) 600 mg PO BID COUNT [facility]CLUDES [facility] Last Admin: 11/05/21 08:21 Dose: 600 mg Documented by: Fluticasone Propionate (Fluticasone Propionate Nasal 16 Gm [place]) 2 spray NOSTRIL-B DAILY COUNT [facility] Last Admin: 11/05/21 08:22 Dose: 2 spray Documented by: Haloperidol (Haloperidol 5 Mg Tablet) 10 mg PO BID COUNT [facility]CLUD[facility] Last Admin: 11/05/21 08:22 Dose: 10 mg Documented by: Haloperidol (Haloperidol 5 Mg Tablet) 5 mg PO Q2H PRN PRN Reason: agitation Last Admin: 11/05/21 12:24 Dose: 5 mg Documented by: Hydroxyzine HCl (Hydroxyzine Hcl 25 Mg Tablet) 25 mg PO BEDTIME PRN PRN Reason: Anxiety Last Admin: 10/27/21 22:17 Dose: 25 mg Documented by: Lorazepam (Lorazepam 1 Mg Tablet) 1 mg PO Q4H PRN PRN Reason: agitation Last Admin: 11/05/21 12:24 Dose: 1 mg Documented by: Magnesium Hydroxide (Milk Of Magnesia 30 Ml Oral.Susp) 30 ml PO DAILY PRN PRN Reason: Constipation Last Admin: 10/26/21 17:18 Dose: 30 ml Documented by: Multivitamins/Vitamin C (Multivitamin Tablet) 1 tab PO DAILY [facility] Last Admin: 11/05/21 08:22 Dose: 1 tab Documented by: Nicotine (Nicotine 21 Mg Patch.Td24) 21 mg TRANSDERMA DAILY COUNT [facility] Last Admin: 11/05/21 08:20 Dose: 21 mg Documented by: Nicotine Polacrilex (Nicotine Polacrilex 2 Mg Gum) 2 mg BUCCAL Q2H PRN PRN Reason: Nicotine Cravings Last Admin: 11/02/21 07:48 Dose: 2 mg Documented by: Olanzapine (Olanzapine Odt 10 Mg Tab.Rapdis) 10 mg TRANSLINGU Q6H PRN PRN Reason: agitation Paliperidone Palmitate (Paliperidone Palmitate 234 Mg/1.5 Ml Syringe) 234 mg IM Q28D [facility]CLUD[facility] Last Admin: 11/04/21 11:57 Dose: 234 mg Documented by: Polyethylene Glycol (Polyethylene Glycol 3350 17 Gm Powd.Pack) 17 gm PO DAILY PRN PRN Reason: Constipation Last Admin: 11/02/21 17:53 Dose: 17 gm Documented by: Tiotropium [place] (Tiotropium [place] 18 Mcg Cap.W.Dev) 1 puff INHALE RDAILY COUNT [facility]CLUDES [facility] Last Admin: 11/05/21 08:20 Dose: 1 puff Documented by: Trazodone HCl (Trazodone Hcl 50 Mg Tablet) 50 mg PO BEDTIME PRN PRN Reason: Insomnia Last Admin: 10/27/21 22:17 Dose: 50 mg Documented by: Allergies Allergies Allergy/AdvReac Type Severity Reaction Status Date / Time oxcarbazepine Allergy Mild DYSTONIC Verified 10/26/21 01:13 [From Trileptal] Penicillins Allergy Mild UNKNOWN Verified 10/26/21 01:13 perphenazine [Perphenazine] Allergy Mild UNKNOWN Verified 10/26/21 01:13 Assessment & Plan Assessment & Plan (1) Schizoaffective disorder, bipolar type: Status: Acute Code(s): F25.0 - Schizoaffective disorder, bipolar type Assessment and Plan: Ms. Mello is a 51 year-old woman with long hx of schizoaffective disorder bipolar type who was brought to [facility] ED for evaluation after her ACCS worker requested crisis eval as pt presented as increasingly more disorganized, labile, religiously preoccupied which is her usual presentation when she decompensates. PLAN 1. Admit to M3, CV, 15 minutes checks for safety 2. restarted medications combination of haldol, does have Invega Sustenna 234mg IM qmonth last given 11/04. 3. started tegretol 200 BID 10/24 for mood stabilization, dosing increased to 300 mg BID on 10/25, on to 400 BID on 10/27, 600 BID as of 11/04. 4. HS klonopin decreased from 2 mg to 1.5 mg as of 10/25, to 1 mg as of 10/26, to 0.5 mg as of 10/28, then DCed entirely. 5. Aftercare planning. may go to respite once stabilized. I spent minutes with the patient and/or on the patient floor today, greater than?50% of which was spent counseling/coordinating care. Reason for contiued inpatient stay Substantial Risk for: inability to function and rapid decompensation
[2021-11-05 19:34] VITALS: BP 113/69; PULSE 94; RESP 18; TEMP 36.5; O2SAT 95
[2021-11-06 08:45] VITALS: BP 124/67; PULSE 80; RESP 18; TEMP 36.9; O2SAT 96
[2021-11-06] MEDS: Fluticasone Propionate Nasal 16 GM SPRAY 2 SPRAY NOSTRIL-B (08:47)
[2021-11-06] MEDS: Multivitamin TABLET 1 TAB PO (08:49)
[2021-11-06] MEDS: HaloperidoL 5 MG TABLET 10 MG PO ×2 (08:49→22:21)
[2021-11-06] MEDS: carBAMazepine ER 200 MG TAB.ER.12H 600 MG PO ×2 (08:49→22:21)
[2021-11-06] MEDS: busPIRone HCl 10 MG TABLET PO ×2 (08:49→22:21)
[2021-11-06] MEDS: Nicotine 21 MG PATCH.TD24 TRANSDERMA (08:50)
[2021-11-06] MEDS: polyethylene glycoL 3350 17 GM POWD.PACK PO (09:08)
[2021-11-06] MEDS: LORazepam 1 MG TABLET PO (11:34)
[2021-11-06] MEDS: HaloperidoL 5 MG TABLET PO (11:34)
--- NOTE | 2021-11-06 12:28 | HO.PSYCHPN ---
Subjective Subjective Date of Service: 11/06/21 Reason For Visit: torres Interim History: pt seen twice this morning, once alone and once with ERINN Dean. pt was cheery, calm, and hyperverbal during first interview. during later interview with ERINN Dena, pt was getting PRNs of haldol and ativan from RN [place] and was noted to be crying. she was upset about feeling misled. she indicated she continued to suffer from AH, yet she declined MD's offer of an increase in scheduled haldol. she was ambivalent about the helpfulness of tegretol. she reluctantly accepted she would not be discharged tomorrow due to her not yet being suitable for respite. she then signed a 3-day notice. per staff, slept well overnight. asking for breast reduction and liposuction to be done in the next 24H. asking RN to take her back in time. received haldol and ativan PRN for bedtime. Mental Status Exam Mental Status Exam Narrative: Appearance: casually groomed, fair hygiene in NAD Behavior: cooperative psychomotor: no PMA/PMR Speech:increased rate and amount, loud at times, spontaneous Thought process: more digressive, wandering, disjointed Thought content: no delusions or paranoia clearly articulated Mood: euphoric to sad Affect: labile, normo-intense SI: none expressed HI: none expressed VH/AH: +AH of her former partner Insight/judgment:impaired x 2 Memory/cog: alert, oriented x 3. Diagnostics Vital Signs (24Hr): Vital Signs - 24 hr 11/05/21 19:34 11/06/21 08:45 Temperature 97.7 F 98.4 F Pulse Rate 94 80 Respiratory Rate 18 18 Blood Pressure 113/69 124/67 Pulse Oximetry 95 96 BMI result Body Mass Index 34.2 Labs Results: 11/04/21 07:09 11/04/21 07:09 Medications Medications Current Medications Acetaminophen (Acetaminophen 325 Mg Tablet) 650 mg PO Q6H PRN PRN Reason: Headache/Pain Mild Scale (1-3) Last Admin: 10/22/21 15:47 Dose: 650 mg Documented by: Al Hydroxide/Mg Hydroxide (Magnesium Hydrox/Alum Hydrox 30 Ml Oral.Susp) 30 ml PO Q6H PRN PRN Reason: Heartburn/Nausea Albuterol Sulfate (Albuterol Sulfate 90 Mcg 8 Gm Inhaler) 2 puff INHALE Q4H PRN PRN Reason: Wheezing Last Admin: 11/05/21 15:07 Dose: 2 puff Documented by: Benztropine Mesylate (Benztropine Mesylate 0.5 Mg Tablet) 0.5 mg PO BID PRN PRN Reason: Extrapyramidal Effects/Symptoms Last Admin: 10/27/21 22:17 Dose: 0.5 mg Documented by: Buspirone HCl (Buspirone Hcl 10 Mg Tablet) 10 mg PO BID [facility] Last Admin: 11/06/21 08:49 Dose: 10 mg Documented by: Calcium Carbonate (Calcium Carbonate 500 Mg Tablet) 500 mg PO BID [facility] Last Admin: 11/06/21 08:49 Dose: 500 mg Documented by: Carbamazepine (Carbamazepine Er 200 Mg Tab.Er.12h) 600 mg PO BID [facility] Last Admin: 11/06/21 08:49 Dose: 600 mg Documented by: Fluticasone Propionate (Fluticasone Propionate Nasal 16 Gm [place]) 2 spray NOSTRIL-B DAILY [facility] Last Admin: 11/06/21 08:47 Dose: 2 spray Documented by: Haloperidol (Haloperidol 5 Mg Tablet) 10 mg PO BID [facility] Last Admin: 11/06/21 08:49 Dose: 10 mg Documented by: Haloperidol (Haloperidol 5 Mg Tablet) 5 mg PO Q2H PRN PRN Reason: agitation Last Admin: 11/06/21 11:34 Dose: 5 mg Documented by: Hydroxyzine HCl (Hydroxyzine Hcl 25 Mg Tablet) 25 mg PO BEDTIME PRN PRN Reason: Anxiety Last Admin: 10/27/21 22:17 Dose: 25 mg Documented by: Lorazepam (Lorazepam 1 Mg Tablet) 1 mg PO Q4H PRN PRN Reason: agitation Last Admin: 11/06/21 11:34 Dose: 1 mg Documented by: Magnesium Hydroxide (Milk Of Magnesia 30 Ml Oral.Susp) 30 ml PO DAILY PRN PRN Reason: Constipation Last Admin: 10/26/21 17:18 Dose: 30 ml Documented by: Multivitamins/Vitamin C (Multivitamin Tablet) 1 tab PO DAILY [facility] Last Admin: 11/06/21 08:49 Dose: 1 tab Documented by: Nicotine (Nicotine 21 Mg Patch.Td24) 21 mg TRANSDERMA DAILY [facility] Last Admin: 11/06/21 08:50 Dose: 21 mg Documented by: Nicotine Polacrilex (Nicotine Polacrilex 2 Mg Gum) 2 mg BUCCAL Q2H PRN PRN Reason: Nicotine Cravings Last Admin: 11/02/21 07:48 Dose: 2 mg Documented by: Olanzapine (Olanzapine Odt 10 Mg Tab.Rapdis) 10 mg TRANSLINGU Q6H PRN PRN Reason: agitation Paliperidone Palmitate (Paliperidone Palmitate 234 Mg/1.5 Ml Syringe) 234 mg IM Q28D [facility] Last Admin: 11/04/21 11:57 Dose: 234 mg Documented by: Polyethylene Glycol (Polyethylene Glycol 3350 17 Gm Powd.Pack) 17 gm PO DAILY PRN PRN Reason: Constipation Last Admin: 11/06/21 09:08 Dose: 17 gm Documented by: Tiotropium [place] (Tiotropium [place] 18 Mcg Cap.W.Dev) 1 puff INHALE RDAILY [facility] Last Admin: 11/06/21 08:47 Dose: 1 puff Documented by: Trazodone HCl (Trazodone Hcl 50 Mg Tablet) 50 mg PO BEDTIME PRN PRN Reason: Insomnia Last Admin: 10/27/21 22:17 Dose: 50 mg Documented by: Allergies Allergies Allergy/AdvReac Type Severity Reaction Status Date / Time oxcarbazepine Allergy Mild DYSTONIC Verified 10/26/21 01:13 [From Trileptal] Penicillins Allergy Mild UNKNOWN Verified 10/26/21 01:13 perphenazine [Perphenazine] Allergy Mild UNKNOWN Verified 10/26/21 01:13 Assessment & Plan Assessment & Plan (1) Schizoaffective disorder, bipolar type: Status: Acute Code(s): F25.0 - Schizoaffective disorder, bipolar type Assessment and Plan: Ms. Mello is a 51 year-old woman with long hx of schizoaffective disorder bipolar type who was brought to [facility] ED for evaluation after her ACCS worker requested crisis eval as pt presented as increasingly more disorganized, labile, religiously preoccupied which is her usual presentation when she decompensates. PLAN 1. Admit to M3, CV, 15 minutes checks for safety 2. restarted medications combination of haldol, does have Invega Sustenna 234mg IM qmonth last given 11/04. 3. started tegretol 200 BID 11/26 for mood stabilization, dosing increased to 300 mg BID on 10/25, on to 400 BID on 10/27, 600 BID as of 11/04. checks labs wednesday morning prior to discharge. 4. HS klonopin decreased from 2 mg to 1.5 mg as of 10/25, to 1 mg as of 10/26, to 0.5 mg as of 10/28, then DCed entirely. 5. Aftercare planning. may go to respite once stabilized. 3-day signed 11/06, comes due sunday 11/11. I spent minutes with the patient and/or on the patient floor today, greater than?50% of which was spent counseling/coordinating care. Reason for contiued inpatient stay Substantial Risk for: inability to function and rapid decompensation
[2021-11-06 22:00] VITALS: BP 108/68; PULSE 95; TEMP 36.2; O2SAT 99
[2021-11-06] MEDS: Milk of Magnesia 30 ML ORAL.SUSP PO (22:29)
[2021-11-07] MEDS: Multivitamin TABLET 1 TAB PO (08:33)
[2021-11-07] MEDS: busPIRone HCl 10 MG TABLET PO (08:33)
[2021-11-07] MEDS: carBAMazepine ER 200 MG TAB.ER.12H 600 MG PO (08:33)
[2021-11-07] MEDS: HaloperidoL 5 MG TABLET 10 MG PO ×2 (08:33→20:50)
--- NOTE | 2021-11-07 08:44 | PC.NURSE ---
Pt stated she felt lightheaded and dizzy. She refused 200mg of her Trileptal and only took 400mg.
--- NOTE | 2021-11-07 13:13 | HO.PSYCHPN ---
Subjective Subjective Date of Service: 11/07/21 Reason For Visit: torres Interim History: pt found lying in bed in her room, awake. she quickly roused herself from her bed and cleared a spot for MD to sit on a chair by her bedside. she c/o feeling dizzy the past couple of days and attributed it, probably rightly, to the recently increased dose of tegretol. MD and pt agreed to decrease dosing from 1200 mg daily to 1000 mg daily. she had tolerated 800 mg daily without side effects. remains loquacious, overly familiar, and with heavy make-up. per staff, eating and sleeping well. 3-day up on wednesday. denies AVH but per staff appears to be RIS. got haldol and ativan yesterday morning at 1100. slept for much of the day yesterday. Mental Status Exam Mental Status Exam Narrative: Appearance: casually groomed, fair hygiene in NAD, heavy make-up Behavior: cooperative psychomotor: no PMA/PMR Speech:increased rate and amount, loud at times, spontaneous Thought process: fairly topical and direct Thought content: no delusions or paranoia clearly articulated Mood: not assessed Affect: min-labile, normo-intense SI: none expressed HI: none expressed VH/AH: none expressed Insight/judgment:impaired x 2 Memory/cog: alert, oriented x 3. Diagnostics Vital Signs (24Hr): Vital Signs - 24 hr 11/06/21 22:00 Temperature 97.2 F Pulse Rate 95 Blood Pressure 108/68 Pulse Oximetry 99 BMI result Body Mass Index 34.2 Labs Results: 11/04/21 07:09 11/04/21 07:09 Medications Medications Current Medications Acetaminophen (Acetaminophen 325 Mg Tablet) 650 mg PO Q6H PRN PRN Reason: Headache/Pain Mild Scale (1-3) Last Admin: 10/22/21 15:47 Dose: 650 mg Documented by: Al Hydroxide/Mg Hydroxide (Magnesium Hydrox/Alum Hydrox 30 Ml Oral.Susp) 30 ml PO Q6H PRN PRN Reason: Heartburn/Nausea Albuterol Sulfate (Albuterol Sulfate 90 Mcg 8 Gm Inhaler) 2 puff INHALE Q4H PRN PRN Reason: Wheezing Last Admin: 11/05/21 15:07 Dose: 2 puff Documented by: Benztropine Mesylate (Benztropine Mesylate 0.5 Mg Tablet) 0.5 mg PO BID PRN PRN Reason: Extrapyramidal Effects/Symptoms Last Admin: 10/27/21 22:17 Dose: 0.5 mg Documented by: Buspirone HCl (Buspirone Hcl 10 Mg Tablet) 10 mg PO BID [facility] Last Admin: 11/07/21 08:33 Dose: 10 mg Documented by: Calcium Carbonate (Calcium Carbonate 500 Mg Tablet) 500 mg PO BID [facility] Last Admin: 11/07/21 08:33 Dose: 500 mg Documented by: Carbamazepine (Carbamazepine Er 200 Mg Tab.Er.12h) 400 mg PO DAILY [facility] Carbamazepine (Carbamazepine Er 200 Mg Tab.Er.12h) 600 mg PO BEDTIME [facility] Fluticasone Propionate (Fluticasone Propionate Nasal 16 Gm [place]) 2 spray NOSTRIL-B DAILY [facility] Last Admin: 11/07/21 10:17 Dose: Not Given Documented by: Haloperidol (Haloperidol 5 Mg Tablet) 10 mg PO BID [facility] Last Admin: 11/07/21 08:33 Dose: 10 mg Documented by: Haloperidol (Haloperidol 5 Mg Tablet) 5 mg PO Q2H PRN PRN Reason: agitation Last Admin: 11/06/21 11:34 Dose: 5 mg Documented by: Hydroxyzine HCl (Hydroxyzine Hcl 25 Mg Tablet) 25 mg PO BEDTIME PRN PRN Reason: Anxiety Last Admin: 10/27/21 22:17 Dose: 25 mg Documented by: Lorazepam (Lorazepam 1 Mg Tablet) 1 mg PO Q4H PRN PRN Reason: agitation Last Admin: 11/06/21 11:34 Dose: 1 mg Documented by: Magnesium Hydroxide (Milk Of Magnesia 30 Ml Oral.Susp) 30 ml PO DAILY PRN PRN Reason: Constipation Last Admin: 11/06/21 22:29 Dose: 30 ml Documented by: Multivitamins/Vitamin C (Multivitamin Tablet) 1 tab PO DAILY [facility] Last Admin: 11/07/21 08:33 Dose: 1 tab Documented by: Nicotine (Nicotine 21 Mg Patch.Td24) 21 mg TRANSDERMA DAILY [facility] Last Admin: 11/07/21 10:17 Dose: Not Given Documented by: Nicotine Polacrilex (Nicotine Polacrilex 2 Mg Gum) 2 mg BUCCAL Q2H PRN PRN Reason: Nicotine Cravings Last Admin: 11/02/21 07:48 Dose: 2 mg Documented by: Olanzapine (Olanzapine Odt 10 Mg Tab.Rapdis) 10 mg TRANSLINGU Q6H PRN PRN Reason: agitation Paliperidone Palmitate (Paliperidone Palmitate 234 Mg/1.5 Ml Syringe) 234 mg IM Q28D [facility] Last Admin: 11/04/21 11:57 Dose: 234 mg Documented by: Polyethylene Glycol (Polyethylene Glycol 3350 17 Gm Powd.Pack) 17 gm PO DAILY PRN PRN Reason: Constipation Last Admin: 11/06/21 09:08 Dose: 17 gm Documented by: Tiotropium [place] (Tiotropium [place] 18 Mcg Cap.W.Dev) 1 puff INHALE RDAILY [facility] Last Admin: 11/07/21 10:17 Dose: Not Given Documented by: Trazodone HCl (Trazodone Hcl 50 Mg Tablet) 50 mg PO BEDTIME PRN PRN Reason: Insomnia Last Admin: 10/27/21 22:17 Dose: 50 mg Documented by: Allergies Allergies Allergy/AdvReac Type Severity Reaction Status Date / Time oxcarbazepine Allergy Mild DYSTONIC Verified 10/26/21 01:13 [From Trileptal] Penicillins Allergy Mild UNKNOWN Verified 10/26/21 01:13 perphenazine [Perphenazine] Allergy Mild UNKNOWN Verified 10/26/21 01:13 Assessment & Plan Assessment & Plan (1) Schizoaffective disorder, bipolar type: Status: Acute Code(s): F25.0 - Schizoaffective disorder, bipolar type Assessment and Plan: Ms. Mello is a 51 year-old woman with long hx of schizoaffective disorder bipolar type who was brought to [facility] ED for evaluation after her ACCS worker requested crisis eval as pt presented as increasingly more disorganized, labile, religiously preoccupied which is her usual presentation when she decompensates. PLAN 1. Admit to M3, CV, 15 minutes checks for safety 2. restarted medications combination of haldol, does have Invega Sustenna 234mg IM qmonth last given 11/04. 3. started tegretol 200 BID 10/24 for mood stabilization, dosing increased to 300 mg BID on 10/25, on to 400 BID on 10/27, 600 BID as of 11/04. c/o dizziness 2 days after dose increase to 1200 mg daily, so dosing decreased to 1000 mg daily as of 11/07. check labs suki morning prior to discharge. 4. HS klonopin decreased from 2 mg to 1.5 mg as of 10/25, to 1 mg as of 10/26, to 0.5 mg as of 10/28, then DCed entirely. 5. Aftercare planning. may go to respite once stabilized. 3-day signed 11/06, comes due sunday 11/11. I spent minutes with the patient and/or on the patient floor today, greater than?50% of which was spent counseling/coordinating care. Reason for contiued inpatient stay Substantial Risk for: inability to function and rapid decompensation
[2021-11-07] MEDS: HaloperidoL 5 MG TABLET PO (13:40)
[2021-11-07] MEDS: LORazepam 1 MG TABLET PO (13:40)
[2021-11-07 20:43] VITALS: RESP 16
[2021-11-08] MEDS: busPIRone HCl 10 MG TABLET PO ×3 (00:53→20:11)
[2021-11-08 08:40] VITALS: BP 136/68; PULSE 79; RESP 18; TEMP 36.6; O2SAT 98
[2021-11-08] MEDS: Multivitamin TABLET 1 TAB PO (08:40)
[2021-11-08] MEDS: HaloperidoL 5 MG TABLET 10 MG PO ×2 (08:41→20:11)
[2021-11-08] MEDS: Nicotine 21 MG PATCH.TD24 TRANSDERMA (09:38)
--- NOTE | 2021-11-08 10:29 | HO.PSYCHPN ---
Subjective Subjective Date of Service: 11/08/21 Reason For Visit: torres Subjective Notes: Conditional Voluntary and 3 Day Interim History: Pt visible in the unit, per nursing has been more irritable and accusatory towards nursing telling them that RNs talking about her children and her . Pt reports being with [employer]'s baby. Pt reports having side effects- unvoluntary eye movements and blurry vision and has decreased dose of tegretol on her own. Pt denies SI/HI. Pt reports she does not need to be in inpt unit, and asks if this chief underwriter can discharged her. Medication Compliance: Yes Side effects from medications: No Review of Systems Review of Systems unremarkable Constitutional: Denies fatigue Eyes: Denies no additional eye complaints Cardiovascular: Denies chest pain, Denies chest pain with activity, Denies Epigastric Pain, Denies rapid heart rate, Denies lightheadedness and Denies dyspnea Respiratory: Denies chest congestion and Denies dyspnea Gastrointestinal: Denies abdominal pain, Denies constipation, Denies heartburn, Denies diarrhea and Denies vomiting Musculoskeletal: Denies no additional musculoskeletal complaints Endocrine: Denies fatigue Mental Status Exam Mental Status Exam Narrative: Appearance: casually groomed, fair hygiene in NAD, heavy make-up Behavior: cooperative psychomotor: no PMA/PMR Speech:increased rate and amount, loud at times, spontaneous Thought process: fairly topical and direct Thought content: no delusions or paranoia clearly articulated Mood: not assessed Affect: min-labile, normo-intense SI: none expressed HI: none expressed VH/AH: none expressed Insight/judgment:impaired x 2 Memory/cog: alert, oriented x 3. Diagnostics Vital Signs (24Hr): Vital Signs - 24 hr 11/09/21 06:00 11/09/21 18:00 Temperature 97.9 F 97.9 F Pulse Rate 94 102 H Respiratory Rate 18 18 Blood Pressure 107/69 Pulse Oximetry 96 95 BMI result Body Mass Index 34.2 Labs Results: 11/04/21 07:09 11/04/21 07:09 Medications Medications Current Medications Acetaminophen (Acetaminophen 325 Mg Tablet) 650 mg PO Q6H PRN PRN Reason: Headache/Pain Mild Scale (1-3) Last Admin: 11/08/21 17:05 Dose: 650 mg Documented by: Al Hydroxide/Mg Hydroxide (Magnesium Hydrox/Alum Hydrox 30 Ml Oral.Susp) 30 ml PO Q6H PRN PRN Reason: Heartburn/Nausea Albuterol Sulfate (Albuterol Sulfate 90 Mcg 8 Gm Inhaler) 2 puff INHALE Q4H PRN PRN Reason: Wheezing Last Admin: 11/09/21 20:55 Dose: 2 puff Documented by: Benztropine Mesylate (Benztropine Mesylate 0.5 Mg Tablet) 0.5 mg PO BID PRN PRN Reason: Extrapyramidal Effects/Symptoms Last Admin: 10/27/21 22:17 Dose: 0.5 mg Documented by: Buspirone HCl (Buspirone Hcl 10 Mg Tablet) 10 mg PO BID [facility] Last Admin: 11/09/21 20:28 Dose: 10 mg Documented by: Calcium Carbonate (Calcium Carbonate 500 Mg Tablet) 500 mg PO BID [facility] Last Admin: 11/09/21 20:29 Dose: 500 mg Documented by: Carbamazepine (Carbamazepine Er 200 Mg Tab.Er.12h) 400 mg PO DAILY [facility] Last Admin: 11/09/21 08:40 Dose: Not Given Documented by: Carbamazepine (Carbamazepine Er 200 Mg Tab.Er.12h) 600 mg PO BEDTIME [facility] Last Admin: 11/09/21 20:29 Dose: 200 mg Documented by: Fluticasone Propionate (Fluticasone Propionate Nasal 16 Gm [place]) 2 spray NOSTRIL-B DAILY [facility] Last Admin: 11/09/21 08:36 Dose: 2 spray Documented by: Haloperidol (Haloperidol 5 Mg Tablet) 10 mg PO BID [facility] Last Admin: 11/09/21 20:28 Dose: 10 mg Documented by: Haloperidol (Haloperidol 5 Mg Tablet) 5 mg PO Q2H PRN PRN Reason: agitation Last Admin: 11/09/21 14:39 Dose: 5 mg Documented by: Hydroxyzine HCl (Hydroxyzine Hcl 25 Mg Tablet) 25 mg PO BEDTIME PRN PRN Reason: Anxiety Last Admin: 11/09/21 21:40 Dose: 25 mg Documented by: Lorazepam (Lorazepam 1 Mg Tablet) 1 mg PO Q4H PRN PRN Reason: agitation Last Admin: 11/09/21 14:39 Dose: 1 mg Documented by: Magnesium Hydroxide (Milk Of Magnesia 30 Ml Oral.Susp) 30 ml PO DAILY PRN PRN Reason: Constipation Last Admin: 11/06/21 22:29 Dose: 30 ml Documented by: Multivitamins/Vitamin C (Multivitamin Tablet) 1 tab PO DAILY [facility] Last Admin: 11/09/21 08:37 Dose: 1 tab Documented by: Nicotine (Nicotine 21 Mg Patch.Td24) 21 mg TRANSDERMA DAILY [facility] Last Admin: 11/09/21 08:37 Dose: 21 mg Documented by: Nicotine Polacrilex (Nicotine Polacrilex 2 Mg Gum) 2 mg BUCCAL Q2H PRN PRN Reason: Nicotine Cravings Last Admin: 11/02/21 07:48 Dose: 2 mg Documented by: Olanzapine (Olanzapine Odt 10 Mg Tab.Rapdis) 10 mg TRANSLINGU Q6H PRN PRN Reason: agitation Last Admin: 11/09/21 21:39 Dose: 10 mg Documented by: Paliperidone Palmitate (Paliperidone Palmitate 234 Mg/1.5 Ml Syringe) 234 mg IM Q28D [facility] Last Admin: 11/04/21 11:57 Dose: 234 mg Documented by: Polyethylene Glycol (Polyethylene Glycol 3350 17 Gm Powd.Pack) 17 gm PO DAILY PRN PRN Reason: Constipation Last Admin: 11/06/21 09:08 Dose: 17 gm Documented by: Tiotropium [place] (Tiotropium [place] 18 Mcg Cap.W.Dev) 1 puff INHALE RDAILY [facility] Last Admin: 11/09/21 08:35 Dose: 1 puff Documented by: Trazodone HCl (Trazodone Hcl 50 Mg Tablet) 50 mg PO BEDTIME PRN PRN Reason: Insomnia Last Admin: 11/09/21 21:40 Dose: 50 mg Documented by: Allergies Allergies Allergy/AdvReac Type Severity Reaction Status Date / Time oxcarbazepine Allergy Mild DYSTONIC Verified 10/26/21 01:13 [From Trileptal] Penicillins Allergy Mild UNKNOWN Verified 10/26/21 01:13 perphenazine [Perphenazine] Allergy Mild UNKNOWN Verified 10/26/21 01:13 Assessment & Plan Assessment & Plan (1) Schizoaffective disorder, bipolar type: Status: Acute Code(s): F25.0 - Schizoaffective disorder, bipolar type Assessment and Plan: Ms. Mello is a 51 year-old woman with long hx of schizoaffective disorder bipolar type who was brought to [facility] ED for evaluation after her ACCS worker requested crisis eval as pt presented as increasingly more disorganized, labile, religiously preoccupied which is her usual presentation when she decompensates. PLAN 1. Admit to M3, CV, 15 minutes checks for safety 2. restarted medications combination of haldol, does have Invega Sustenna 234mg IM qmonth last given 11/04. 3. started tegretol 200 BID 10/24 for mood stabilization, dosing increased to 300 mg BID on 10/25, on to 400 BID on 10/27, 600 BID as of 11/04. c/o dizziness 2 days after dose increase to 1200 mg daily, so dosing decreased to 1000 mg daily as of 11/07. check labs wednesday morning prior to discharge. 4. HS klonopin decreased from 2 mg to 1.5 mg as of 10/25, to 1 mg as of 10/26, to 0.5 mg as of 10/28, then DCed entirely. 5. Aftercare planning. may go to respite once stabilized. 3-day signed 11/06, comes due sunday 11/11. 11/08- pt increasingly more irritable, reporting being thinks staff talking about her telling her to have an . pt taking partial doses of tegretol reports involuntary eye movement and dizziness as reason for decreasing dose. No SI/HI. I spent minutes with the patient and/or on the patient floor today, greater than?50% of which was spent counseling/coordinating care. Reason for contiued inpatient stay Substantial Risk for: inability to function
[2021-11-08] MEDS: Fluticasone Propionate Nasal 16 GM SPRAY 2 SPRAY NOSTRIL-B (11:05)
[2021-11-08] MEDS: Acetaminophen 325 MG TABLET 650 MG PO (17:05)
[2021-11-08 20:05] VITALS: PULSE 98; RESP 20; TEMP 36.5; O2SAT 97
[2021-11-08] MEDS: carBAMazepine ER 200 MG TAB.ER.12H 600 MG PO (20:11)
[2021-11-08] MEDS: hydrOXYzine HCL 25 MG TABLET PO (22:59)
[2021-11-08] MEDS: LORazepam 1 MG TABLET PO (23:00)
[2021-11-09 06:00] VITALS: BP 107/69; PULSE 94; RESP 18; TEMP 36.6; O2SAT 96
[2021-11-09] MEDS: Fluticasone Propionate Nasal 16 GM SPRAY 2 SPRAY NOSTRIL-B (08:36)
[2021-11-09] MEDS: busPIRone HCl 10 MG TABLET PO ×2 (08:37→20:28)
[2021-11-09] MEDS: HaloperidoL 5 MG TABLET 10 MG PO ×2 (08:37→20:28)
[2021-11-09] MEDS: Nicotine 21 MG PATCH.TD24 TRANSDERMA (08:37)
[2021-11-09] MEDS: Multivitamin TABLET 1 TAB PO (08:37)
--- NOTE | 2021-11-09 12:28 | P.PNPSI_ITS ---
Subjective Subjective Date of Service: 11/09/21 Reason For Visit: torres Subjective Notes: Conditional Voluntary Interim History: Pt continues to be visible in the unit, per nursing has been more irritable and accusatory towards nursing telling them that RNs talking about her children and her . Althought today, pt reports she always thinks she is but test is negative which she accepts as true.. Pt reports having side effects- involuntary eye movements and blurry vision and has decreased dose of tegretol on her own. Pt denies SI/HI. Pt reports she does not need to be in inpt unit, and asks if this freelance copywriter can discharged her. Review of Systems Review of Systems unremarkable Constitutional: Denies fatigue Eyes: Denies no additional eye complaints Cardiovascular: Denies chest pain, Denies chest pain with activity, Denies Epigastric Pain, Denies rapid heart rate, Denies lightheadedness and Denies dyspnea Respiratory: Denies chest congestion and Denies dyspnea Gastrointestinal: Denies abdominal pain, Denies constipation, Denies heartburn, Denies diarrhea and Denies vomiting Musculoskeletal: Denies no additional musculoskeletal complaints Endocrine: Denies fatigue Mental Status Exam Mental Status Exam Narrative: Appearance: casually groomed, fair hygiene in NAD, heavy make-up Behavior: cooperative psychomotor: no PMA/PMR Speech:increased rate and amount, loud at times, spontaneous Thought process: fairly topical and direct Thought content: no delusions or paranoia clearly articulated Mood: not assessed Affect: min-labile, normo-intense SI: none expressed HI: none expressed VH/AH: none expressed Insight/judgment:impaired x 2 Memory/cog: alert, oriented x 3. Diagnostics Vital Signs (24Hr): Vital Signs - 24 hr 11/09/21 06:00 11/09/21 18:00 Temperature 97.9 F 97.9 F Pulse Rate 94 102 H Respiratory Rate 18 18 Blood Pressure 107/69 Pulse Oximetry 96 95 BMI result Body Mass Index 34.2 Labs Results: 11/04/21 07:09 11/04/21 07:09 Medications Medications Current Medications Acetaminophen (Acetaminophen 325 Mg Tablet) 650 mg PO Q6H PRN PRN Reason: Headache/Pain Mild Scale (1-3) Last Admin: 11/08/21 17:05 Dose: 650 mg Documented by: Al Hydroxide/Mg Hydroxide (Magnesium Hydrox/Alum Hydrox 30 Ml Oral.Susp) 30 ml PO Q6H PRN PRN Reason: Heartburn/Nausea Albuterol Sulfate (Albuterol Sulfate 90 Mcg 8 Gm Inhaler) 2 puff INHALE Q4H PRN PRN Reason: Wheezing Last Admin: 11/09/21 20:55 Dose: 2 puff Documented by: Benztropine Mesylate (Benztropine Mesylate 0.5 Mg Tablet) 0.5 mg PO BID PRN PRN Reason: Extrapyramidal Effects/Symptoms Last Admin: 10/27/21 22:17 Dose: 0.5 mg Documented by: Buspirone HCl (Buspirone Hcl 10 Mg Tablet) 10 mg PO BID [facility] Last Admin: 11/09/21 20:28 Dose: 10 mg Documented by: Calcium Carbonate (Calcium Carbonate 500 Mg Tablet) 500 mg PO BID [facility] Last Admin: 11/09/21 20:29 Dose: 500 mg Documented by: Carbamazepine (Carbamazepine Er 200 Mg Tab.Er.12h) 400 mg PO DAILY [facility] Last Admin: 11/09/21 08:40 Dose: Not Given Documented by: Carbamazepine (Carbamazepine Er 200 Mg Tab.Er.12h) 600 mg PO BEDTIME [facility] Last Admin: 11/09/21 20:29 Dose: 200 mg Documented by: Fluticasone Propionate (Fluticasone Propionate Nasal 16 Gm [place]) 2 spray NOSTRIL-B DAILY [facility] Last Admin: 11/09/21 08:36 Dose: 2 spray Documented by: Haloperidol (Haloperidol 5 Mg Tablet) 10 mg PO BID [facility] Last Admin: 11/09/21 20:28 Dose: 10 mg Documented by: Haloperidol (Haloperidol 5 Mg Tablet) 5 mg PO Q2H PRN PRN Reason: agitation Last Admin: 11/09/21 14:39 Dose: 5 mg Documented by: Hydroxyzine HCl (Hydroxyzine Hcl 25 Mg Tablet) 25 mg PO BEDTIME PRN PRN Reason: Anxiety Last Admin: 11/09/21 21:40 Dose: 25 mg Documented by: Lorazepam (Lorazepam 1 Mg Tablet) 1 mg PO Q4H PRN PRN Reason: agitation Last Admin: 11/09/21 14:39 Dose: 1 mg Documented by: Magnesium Hydroxide (Milk Of Magnesia 30 Ml Oral.Susp) 30 ml PO DAILY PRN PRN Reason: Constipation Last Admin: 11/06/21 22:29 Dose: 30 ml Documented by: Multivitamins/Vitamin C (Multivitamin Tablet) 1 tab PO DAILY [facility] Last Admin: 11/09/21 08:37 Dose: 1 tab Documented by: Nicotine (Nicotine 21 Mg Patch.Td24) 21 mg TRANSDERMA DAILY [facility] Last Admin: 11/09/21 08:37 Dose: 21 mg Documented by: Nicotine Polacrilex (Nicotine Polacrilex 2 Mg Gum) 2 mg BUCCAL Q2H PRN PRN Reason: Nicotine Cravings Last Admin: 11/02/21 07:48 Dose: 2 mg Documented by: Olanzapine (Olanzapine Odt 10 Mg Tab.Rapdis) 10 mg TRANSLINGU Q6H PRN PRN Reason: agitation Last Admin: 11/09/21 21:39 Dose: 10 mg Documented by: Paliperidone Palmitate (Paliperidone Palmitate 234 Mg/1.5 Ml Syringe) 234 mg IM Q28D [facility] Last Admin: 11/04/21 11:57 Dose: 234 mg Documented by: Polyethylene Glycol (Polyethylene Glycol 3350 17 Gm Powd.Pack) 17 gm PO DAILY PRN PRN Reason: Constipation Last Admin: 11/06/21 09:08 Dose: 17 gm Documented by: Tiotropium [place] (Tiotropium [place] 18 Mcg Cap.W.Dev) 1 puff INHALE RDAILY [facility] Last Admin: 11/09/21 08:35 Dose: 1 puff Documented by: Trazodone HCl (Trazodone Hcl 50 Mg Tablet) 50 mg PO BEDTIME PRN PRN Reason: Insomnia Last Admin: 11/09/21 21:40 Dose: 50 mg Documented by: Allergies Allergies Allergy/AdvReac Type Severity Reaction Status Date / Time oxcarbazepine Allergy Mild DYSTONIC Verified 10/26/21 01:13 [From Trileptal] Penicillins Allergy Mild UNKNOWN Verified 10/26/21 01:13 perphenazine [Perphenazine] Allergy Mild UNKNOWN Verified 10/26/21 01:13 Assessment & Plan Assessment & Plan (1) Schizoaffective disorder, bipolar type: Status: Acute Code(s): F25.0 - Schizoaffective disorder, bipolar type Assessment and Plan: Ms. Mello is a 51 year-old woman with long hx of schizoaffective disorder bipolar type who was brought to [facility] ED for evaluation after her ACCS worker requested crisis eval as pt presented as increasingly more disorganized, labile, religiously preoccupied which is her usual presentation when she decompensates. PLAN 1. Admit to M3, CV, 15 minutes checks for safety 2. restarted medications combination of haldol, does have Invega Sustenna 234mg IM qmonth last given 11/04. 3. started tegretol 200 BID 10/24 for mood stabilization, dosing increased to 300 mg BID on 10/25, on to 400 BID on 10/27, 600 BID as of 11/04. c/o dizziness 2 days after dose increase to 1200 mg daily, so dosing decreased to 1000 mg daily as of 11/07. check labs wednesday morning prior to discharge. 4. HS klonopin decreased from 2 mg to 1.5 mg as of 10/25, to 1 mg as of 10/26, to 0.5 mg as of 10/28, then DCed entirely. 5. Aftercare planning. may go to respite once stabilized. 3-day signed 11/06, comes due sunday 11/11. 11/08- pt increasingly more irritable, reporting being thinks staff talking about her telling her to have an . pt taking partial doses of tegretol reports involuntary eye movement and dizziness as reason for decreasing dose. No SI/HI. I spent minutes with the patient and/or on the patient floor today, greater than?50% of which was spent counseling/coordinating care. Reason for contiued inpatient stay Substantial Risk for: inability to function
[2021-11-09] MEDS: LORazepam 1 MG TABLET PO (14:39)
[2021-11-09] MEDS: HaloperidoL 5 MG TABLET PO (14:39)
[2021-11-09] MEDS: OLANZapine ODT 10 MG TAB.RAPDIS TRANSLINGU ×2 (16:22→21:39)
[2021-11-09 18:00] VITALS: PULSE 102; RESP 18; TEMP 36.6; O2SAT 95
[2021-11-09] MEDS: carBAMazepine ER 200 MG TAB.ER.12H 600 MG PO (20:29)
[2021-11-09] MEDS: Albuterol Sulfate 90 MCG 8 GM INHALER 2 PUFF INHALE (20:55)
[2021-11-09] MEDS: hydrOXYzine HCL 25 MG TABLET PO (21:40)
[2021-11-09] MEDS: traZODone HCL 50 MG TABLET PO (21:40)
[2021-11-10] MEDS: traZODone HCL 50 MG TABLET PO (00:47)
[2021-11-10] MEDS: HaloperidoL 5 MG TABLET PO ×4 (00:49→18:49)
[2021-11-10] MEDS: LORazepam 1 MG TABLET PO (02:49)
[2021-11-10] MEDS: Multivitamin TABLET 1 TAB PO (08:05)
[2021-11-10] MEDS: HaloperidoL 5 MG TABLET 10 MG PO ×2 (08:05→20:03)
[2021-11-10] MEDS: busPIRone HCl 10 MG TABLET PO ×2 (08:05→20:02)
[2021-11-10] MEDS: carBAMazepine ER 200 MG TAB.ER.12H 400 MG PO (08:05)
[2021-11-10] MEDS: Albuterol Sulfate 90 MCG 8 GM INHALER 2 PUFF INHALE (08:07)
[2021-11-10] MEDS: Fluticasone Propionate Nasal 16 GM SPRAY 2 SPRAY NOSTRIL-B (08:14)
[2021-11-10] MEDS: Nicotine 21 MG PATCH.TD24 TRANSDERMA (08:38)
[2021-11-10 09:43] VITALS: BP 128/72; PULSE 101; RESP 16; TEMP 36.3; O2SAT 96
[2021-11-10] MEDS: LORazepam 1 MG TABLET 2 MG PO ×2 (10:59→18:49)
[2021-11-10] MEDS: Nicotine Polacrilex 2 MG GUM BUCCAL (11:20)
--- NOTE | 2021-11-10 14:28 | P.PNPSI_ITS ---
Subjective Subjective Date of Service: 11/10/21 Reason For Visit: torres Interim History: pt seen in hallway, very active, multi-colored wig on, heavy makeup on, hyperverbal, intrusive. meets with other pt first and then finds her in the meza again. we walk to her room for interview. pt talking about discharging to respite tomorrow. notes her having been taking only 200 mg of tegretol daily for the weekend and that she is looking much worse than she had previously. informs her she needs to take more of that medication in order to get better and we will not be able to discharge her in her present condition. pt becomes enraged, yelling at MD. MD rises from his seat of of concern for being assaulted and pt states she will not assault MD. interview ends shortly and pt walks down the meza yelling at staff she believes have called her names like c*nt and fat h*. during the interview she states that many people on the unit have been calling her such names since the weekend, both staff and peers. she also states she is able to speak all languages. per staff, 3-day up tomorrow. pleasant, talkative. sleeping well until last night when she did not sleep at all. refusing al lbut 200 mg of tegretol daily over the weekend. periods of slamming doors and screaming over the w/e. Mental Status Exam Mental Status Exam Narrative: Appearance: casually groomed, fair hygiene in NAD, heavy make-up, clown wig Behavior: cooperative psychomotor: PMA of pacing Speech:increased rate and amount, loudness. spontaneous. Thought process: tangential, disorganized Thought content: delusions and paranoia Mood: not assessed Affect: labile, hyper-intense SI: none expressed HI: none expressed VH/AH: none expressed but AH imputed Insight/judgment:impaired x 2 Memory/cog: alert, oriented x 3. Diagnostics Vital Signs (24Hr): Vital Signs - 24 hr 11/09/21 18:00 11/10/21 09:43 Temperature 97.9 F 97.3 F Pulse Rate 102 H 101 H Respiratory Rate 18 16 Blood Pressure 128/72 Pulse Oximetry 95 96 BMI result Body Mass Index 34.2 Labs Results: 11/04/21 07:09 11/04/21 07:09 Medications Medications Current Medications Acetaminophen (Acetaminophen 325 Mg Tablet) 650 mg PO Q6H PRN PRN Reason: Headache/Pain Mild Scale (1-3) Last Admin: 11/08/21 17:05 Dose: 650 mg Documented by: Al Hydroxide/Mg Hydroxide (Magnesium Hydrox/Alum Hydrox 30 Ml Oral.Susp) 30 ml PO Q6H PRN PRN Reason: Heartburn/Nausea Albuterol Sulfate (Albuterol Sulfate 90 Mcg 8 Gm Inhaler) 2 puff INHALE Q4H PRN PRN Reason: Wheezing Last Admin: 11/10/21 08:07 Dose: 2 puff Documented by: Benztropine Mesylate (Benztropine Mesylate 0.5 Mg Tablet) 0.5 mg PO BID PRN PRN Reason: Extrapyramidal Effects/Symptoms Last Admin: 10/27/21 22:17 Dose: 0.5 mg Documented by: Buspirone HCl (Buspirone Hcl 10 Mg Tablet) 10 mg PO BID [facility] Last Admin: 11/10/21 08:05 Dose: 10 mg Documented by: Calcium Carbonate (Calcium Carbonate 500 Mg Tablet) 500 mg PO BID [facility] Last Admin: 11/10/21 08:06 Dose: 500 mg Documented by: Carbamazepine (Carbamazepine Er 200 Mg Tab.Er.12h) 400 mg PO DAILY [facility] Last Admin: 11/10/21 08:05 Dose: 400 mg Documented by: Carbamazepine (Carbamazepine Er 200 Mg Tab.Er.12h) 600 mg PO BEDTIME [facility] Last Admin: 11/09/21 20:29 Dose: 200 mg Documented by: Fluticasone Propionate (Fluticasone Propionate Nasal 16 Gm [place]) 2 spray NOSTRIL-B DAILY [facility] Last Admin: 11/10/21 08:14 Dose: 2 spray Documented by: Haloperidol (Haloperidol 5 Mg Tablet) 10 mg PO BID [facility] Last Admin: 11/10/21 08:05 Dose: 10 mg Documented by: Haloperidol (Haloperidol 5 Mg Tablet) 5 mg PO Q2H PRN PRN Reason: agitation Last Admin: 11/10/21 10:59 Dose: 5 mg Documented by: Hydroxyzine HCl (Hydroxyzine Hcl 25 Mg Tablet) 25 mg PO BEDTIME PRN PRN Reason: Anxiety Last Admin: 11/09/21 21:40 Dose: 25 mg Documented by: Lorazepam (Lorazepam 1 Mg Tablet) 2 mg PO Q2H PRN PRN Reason: agitation Last Admin: 11/10/21 10:59 Dose: 2 mg Documented by: Magnesium Hydroxide (Milk Of Magnesia 30 Ml Oral.Susp) 30 ml PO DAILY PRN PRN Reason: Constipation Last Admin: 11/06/21 22:29 Dose: 30 ml Documented by: Multivitamins/Vitamin C (Multivitamin Tablet) 1 tab PO DAILY [facility] Last Admin: 11/10/21 08:05 Dose: 1 tab Documented by: Nicotine (Nicotine 21 Mg Patch.Td24) 21 mg TRANSDERMA DAILY [facility] Last Admin: 11/10/21 08:38 Dose: 21 mg Documented by: Nicotine Polacrilex (Nicotine Polacrilex 2 Mg Gum) 2 mg BUCCAL Q2H PRN PRN Reason: Nicotine Cravings Last Admin: 11/10/21 11:20 Dose: 2 mg Documented by: Olanzapine (Olanzapine Odt 10 Mg Tab.Rapdis) 10 mg TRANSLINGU Q6H PRN PRN Reason: agitation Last Admin: 11/09/21 21:39 Dose: 10 mg Documented by: Paliperidone Palmitate (Paliperidone Palmitate 234 Mg/1.5 Ml Syringe) 234 mg IM Q28D [facility] Last Admin: 11/04/21 11:57 Dose: 234 mg Documented by: Polyethylene Glycol (Polyethylene Glycol 3350 17 Gm Powd.Pack) 17 gm PO DAILY PRN PRN Reason: Constipation Last Admin: 11/06/21 09:08 Dose: 17 gm Documented by: Tiotropium [place] (Tiotropium [place] 18 Mcg Cap.W.Dev) 1 puff INHALE RDAILY [facility] Last Admin: 11/10/21 08:09 Dose: Not Given Documented by: Trazodone HCl (Trazodone Hcl 50 Mg Tablet) 50 mg PO BEDTIME PRN PRN Reason: Insomnia Last Admin: 11/10/21 00:47 Dose: 50 mg Documented by: Allergies Allergies Allergy/AdvReac Type Severity Reaction Status Date / Time oxcarbazepine Allergy Mild DYSTONIC Verified 10/26/21 01:13 [From Trileptal] Penicillins Allergy Mild UNKNOWN Verified 10/26/21 01:13 perphenazine [Perphenazine] Allergy Mild UNKNOWN Verified 10/26/21 01:13 Assessment & Plan Assessment & Plan (1) Schizoaffective disorder, bipolar type: Status: Acute Code(s): F25.0 - Schizoaffective disorder, bipolar type Assessment and Plan: Ms. Mello is a 51 year-old woman with long hx of schizoaffective disorder bipolar type who was brought to [facility] ED for evaluation after her ACCS worker requested crisis eval as pt presented as increasingly more disorganized, labile, religiously preoccupied which is her usual presentation when she decompensates. PLAN 1. Admit to M3, CV, 15 minutes checks for safety 2. restarted medications combination of haldol, does have Invega Sustenna 234mg IM qmonth last given 11/04. 3. started tegretol 200 BID 10/24 for mood stabilization, dosing increased to 300 mg BID on 10/25, on to 400 BID on 10/27, 600 BID as of 11/04. c/o dizziness 2 days after dose increase to 1200 mg daily, so dosing decreased to 1000 mg daily as of 11/07. check labs wednesday morning prior to discharge. took only partial doses of medication all , rapidly deteriorated by wednesday. will not be suitable for discharge wednesday. 4. HS klonopin decreased from 2 mg to 1.5 mg as of 10/25, to 1 mg as of 10/26, to 0.5 mg as of 10/28, then DCed entirely. 5. Aftercare planning. may go to respite once stabilized. 3-day signed 11/06, revoked 11/10. 11/08- pt increasingly more irritable, reporting being thinks staff talking about her telling her to have an . pt taking partial doses of tegretol reports involuntary eye movement and dizziness as reason for decreasing dose. No SI/HI. 11/10: decompensated over w/e. will need to stay in hospital longer for adequate stabilization. I spent minutes with the patient and/or on the patient floor today, g reater than?50% of which was spent counseling/coordinating care. Reason for contiued inpatient stay Substantial Risk for: inability to function and rapid decompensation
[2021-11-10 19:28] VITALS: BP 105/70; PULSE 120; RESP 19; TEMP 36.8; O2SAT 96
[2021-11-10] MEDS: carBAMazepine ER 200 MG TAB.ER.12H 600 MG PO (20:03)
[2021-11-11 08:43] VITALS: BP 128/65; PULSE 95; RESP 18; TEMP 36.4; O2SAT 95
[2021-11-11] MEDS: Nicotine 21 MG PATCH.TD24 TRANSDERMA (08:46)
[2021-11-11] MEDS: Fluticasone Propionate Nasal 16 GM SPRAY 2 SPRAY NOSTRIL-B (08:46)
[2021-11-11] MEDS: carBAMazepine ER 200 MG TAB.ER.12H 400 MG PO (08:47)
[2021-11-11] MEDS: HaloperidoL 5 MG TABLET 10 MG PO ×2 (08:47→20:55)
[2021-11-11] MEDS: Multivitamin TABLET 1 TAB PO (08:47)
[2021-11-11] MEDS: busPIRone HCl 10 MG TABLET PO ×2 (08:47→20:55)
[2021-11-11] MEDS: OLANZapine ODT 10 MG TAB.RAPDIS TRANSLINGU (14:26)
[2021-11-11] MEDS: LORazepam 1 MG TABLET 2 MG PO (15:34)
[2021-11-11] MEDS: HaloperidoL 5 MG TABLET PO (15:34)
--- NOTE | 2021-11-11 20:32 | P.PNPSI_ITS ---
Subjective Subjective Date of Service: 11/11/21 Reason For Visit: torres Interim History: pt seen in her room as she was getting her VS taken with RN. she was less ostentatiously groomed than yesterday (no heavy make-up and no rainbow wig). she reported the medication had helped her by allowing her to sleep well last NOC. MD reinforced the value of sleep, especially in bipolar disorder. pt also stated that the demon that had been inside her had been exorcised overnight. MD suggested the medication had been responsible for her improvement. pt asked how much longer she would need to be in the hospital, and MD and pt agreed that perhaps through early next week. after RN left and as MD was saying goodbye, pt hugged MD even while MD informed her that this was not appropriate behavior (brief hug not experienced as sexually provocative by MD so much as expansive and overly familiar). per staff, pt took all meds last night and slept from 930 pm on. retracted her 3-day notice yesterday, appeared as non-sensical much of the day yesterday. pleasant on steph shift. Mental Status Exam Mental Status Exam Narrative: Appearance: casually groomed, fair hygiene in NAD, no make-up Behavior: cooperative psychomotor: no PMA/PMR Speech:increased rate and amount, loud at times, spontaneous Thought process: fairly topical and direct Thought content: no delusions or paranoia clearly articulated Mood: not assessed Affect: non-labile, normo-intense SI: none expressed HI: none expressed VH/AH: none expressed Insight/judgment:impaired x 2 Memory/cog: alert, oriented x 3. Diagnostics Vital Signs (24Hr): Vital Signs - 24 hr 11/11/21 08:43 Temperature 97.6 F Pulse Rate 95 Respiratory Rate 18 Blood Pressure 128/65 Pulse Oximetry 95 BMI result Body Mass Index 34.2 Labs Results: 11/04/21 07:09 11/04/21 07:09 Medications Medications Current Medications Acetaminophen (Acetaminophen 325 Mg Tablet) 650 mg PO Q6H PRN PRN Reason: Headache/Pain Mild Scale (1-3) Last Admin: 11/08/21 17:05 Dose: 650 mg Documented by: Al Hydroxide/Mg Hydroxide (Magnesium Hydrox/Alum Hydrox 30 Ml Oral.Susp) 30 ml PO Q6H PRN PRN Reason: Heartburn/Nausea Albuterol Sulfate (Albuterol Sulfate 90 Mcg 8 Gm Inhaler) 2 puff INHALE Q4H PRN PRN Reason: Wheezing Last Admin: 11/10/21 08:07 Dose: 2 puff Documented by: Benztropine Mesylate (Benztropine Mesylate 0.5 Mg Tablet) 0.5 mg PO BID PRN PRN Reason: Extrapyramidal Effects/Symptoms Last Admin: 10/27/21 22:17 Dose: 0.5 mg Documented by: Buspirone HCl (Buspirone Hcl 10 Mg Tablet) 10 mg PO BID [facility] Last Admin: 11/11/21 08:47 Dose: 10 mg Documented by: Calcium Carbonate (Calcium Carbonate 500 Mg Tablet) 500 mg PO BID [facility] Last Admin: 11/11/21 08:47 Dose: 500 mg Documented by: Carbamazepine (Carbamazepine Er 200 Mg Tab.Er.12h) 400 mg PO DAILY [facility] Last Admin: 11/11/21 08:47 Dose: 400 mg Documented by: Carbamazepine (Carbamazepine Er 200 Mg Tab.Er.12h) 600 mg PO BEDTIME [facility] Last Admin: 11/10/21 20:03 Dose: 600 mg Documented by: Fluticasone Propionate (Fluticasone Propionate Nasal 16 Gm [employer]) 2 spray NOSTRIL-B DAILY [facility] Last Admin: 11/11/21 08:46 Dose: 2 spray Documented by: Haloperidol (Haloperidol 5 Mg Tablet) 10 mg PO BID [facility] Last Admin: 11/11/21 08:47 Dose: 10 mg Documented by: Haloperidol (Haloperidol 5 Mg Tablet) 5 mg PO Q2H PRN PRN Reason: agitation Last Admin: 11/11/21 15:34 Dose: 5 mg Documented by: Hydroxyzine HCl (Hydroxyzine Hcl 25 Mg Tablet) 25 mg PO BEDTIME PRN PRN Reason: Anxiety Last Admin: 11/09/21 21:40 Dose: 25 mg Documented by: Lorazepam (Lorazepam 1 Mg Tablet) 2 mg PO Q2H PRN PRN Reason: agitation Last Admin: 11/11/21 15:34 Dose: 2 mg Documented by: Magnesium Hydroxide (Milk Of Magnesia 30 Ml Oral.Susp) 30 ml PO DAILY PRN PRN Reason: Constipation Last Admin: 11/06/21 22:29 Dose: 30 ml Documented by: Multivitamins/Vitamin C (Multivitamin Tablet) 1 tab PO DAILY [facility] Last Admin: 11/11/21 08:47 Dose: 1 tab Documented by: Nicotine (Nicotine 21 Mg Patch.Td24) 21 mg TRANSDERMA DAILY [facility] Last Admin: 11/11/21 08:46 Dose: 21 mg Documented by: Nicotine Polacrilex (Nicotine Polacrilex 2 Mg Gum) 2 mg BUCCAL Q2H PRN PRN Reason: Nicotine Cravings Last Admin: 11/10/21 11:20 Dose: 2 mg Documented by: Olanzapine (Olanzapine Odt 10 Mg Tab.Rapdis) 10 mg TRANSLINGU Q6H PRN PRN Reason: agitation Last Admin: 11/11/21 14:26 Dose: 10 mg Documented by: Paliperidone Palmitate (Paliperidone Palmitate 234 Mg/1.5 Ml Syringe) 234 mg IM Q28D [facility] Last Admin: 11/04/21 11:57 Dose: 234 mg Documented by: Polyethylene Glycol (Polyethylene Glycol 3350 17 Gm Powd.Pack) 17 gm PO DAILY PRN PRN Reason: Constipation Last Admin: 11/06/21 09:08 Dose: 17 gm Documented by: Tiotropium [place] (Tiotropium [place] 18 Mcg Cap.W.Dev) 1 puff INHALE RDAILY [facility] Last Admin: 11/11/21 08:45 Dose: 1 puff Documented by: Trazodone HCl (Trazodone Hcl 50 Mg Tablet) 50 mg PO BEDTIME PRN PRN Reason: Insomnia Last Admin: 11/10/21 00:47 Dose: 50 mg Documented by: Allergies Allergies Allergy/AdvReac Type Severity Reaction Status Date / Time oxcarbazepine Allergy Mild DYSTONIC Verified 10/26/21 01:13 [From Trileptal] Penicillins Allergy Mild UNKNOWN Verified 10/26/21 01:13 perphenazine [Perphenazine] Allergy Mild UNKNOWN Verified 10/26/21 01:13 Assessment & Plan Assessment & Plan (1) Schizoaffective disorder, bipolar type: Status: Acute Code(s): F25.0 - Schizoaffective disorder, bipolar type Assessment and Plan: Ms. Mello is a 51 year-old woman with long hx of schizoaffective disorder bipolar type who was brought to [facility] ED for evaluation after her ACCS worker requested crisis eval as pt presented as increasingly more disorganized, labile, religiously preoccupied which is her usual presentation when she decompensates. PLAN 1. Admit to M3, CV, 15 minutes checks for safety 2. restarted medications combination of haldol, does have Invega Sustenna 234mg IM qmonth last given 11/04. 3. started tegretol 200 BID 10/24 for mood stabilization, dosing increased to 300 mg BID on 10/25, on to 400 BID on 10/27, 600 BID as of 11/04. c/o dizziness 2 days after dose increase to 1200 mg daily, so dosing decreased to 1000 mg daily as of 11/07. check labs wednesday morning prior to discharge. took only partial doses of medication all , rapidly deteriorated by wednesday. will not be suitable for discharge wednesday. 4. HS klonopin decreased from 2 mg to 1.5 mg as of 10/25, to 1 mg as of 10/26, to 0.5 mg as of 10/28, then DCed entirely. 5. Aftercare planning. may go to respite once stabilized. 3-day signed 11/06, revoked 11/10. 11/08- pt increasingly more irritable, reporting being thinks staff talking about her telling her to have an . pt taking partial doses of tegretol reports involuntary eye movement and dizziness as reason for decreasing dose. No SI/HI. 11/10: decompensated over w/e. will need to stay in hospital longer for a dequate stabilization. 11/11: took meds last night, looking much less manic this morning. seems to be agreeing to stay until early next week. I spent minutes with the patient and/or on the patient floor today, greater than?50% of which was spent counseling/coordinating care. Reason for contiued inpatient stay Substantial Risk for: inability to function and rapid decompensation
[2021-11-11] MEDS: carBAMazepine ER 200 MG TAB.ER.12H 600 MG PO (20:55)
[2021-11-12] MEDS: Nicotine 21 MG PATCH.TD24 TRANSDERMA (08:36)
[2021-11-12] MEDS: Multivitamin TABLET 1 TAB PO (08:37)
[2021-11-12] MEDS: carBAMazepine ER 200 MG TAB.ER.12H 400 MG PO (08:37)
[2021-11-12] MEDS: busPIRone HCl 10 MG TABLET PO ×2 (08:37→21:37)
[2021-11-12] MEDS: HaloperidoL 5 MG TABLET 10 MG PO ×2 (08:37→21:37)
[2021-11-12 10:00] VITALS: BP 119/66; PULSE 92; RESP 20; TEMP 37; O2SAT 97
[2021-11-12] MEDS: Fluticasone Propionate Nasal 16 GM SPRAY 2 SPRAY NOSTRIL-B (10:49)
[2021-11-12] MEDS: Nicotine Polacrilex 2 MG GUM BUCCAL (10:49)
[2021-11-12] MEDS: Albuterol Sulfate 90 MCG 8 GM INHALER 2 PUFF INHALE (10:51)
[2021-11-12] MEDS: OLANZapine ODT 10 MG TAB.RAPDIS TRANSLINGU (15:02)
--- NOTE | 2021-11-12 16:35 | HO.PSYCHPN ---
Subjective Subjective Date of Service: 11/12/21 Reason For Visit: torres Interim History: pt found in her room sleeping. easily rousable. no make-up or rainbow wig. calm, cooperative, sober. states she is feeling well and tolerating medication. planning to discharge next wednesday. no complaints or requests. per staff, anxious, suspicious, irritable yesterday. accused staff of calling her a whore. up x1 for snack eves. Mental Status Exam Mental Status Exam Narrative: Appearance: casually groomed, fair hygiene in NAD, no make-up Behavior: cooperative psychomotor: no PMA/PMR Speech: nml rate and amount, nml loudness, spontaneous Thought process: topical and direct Thought content: no delusions or paranoia articulated Mood: euthymic Affect: non-labile, normo-intense SI: none expressed HI: none expressed VH/AH: none expressed Diagnostics Vital Signs (24Hr): Vital Signs - 24 hr 11/12/21 10:00 Temperature 98.6 F Pulse Rate 92 Respiratory Rate 20 Blood Pressure 119/66 Pulse Oximetry 97 BMI result Body Mass Index 34.2 Labs Results: 11/04/21 07:09 11/04/21 07:09 Medications Medications Current Medications Acetaminophen (Acetaminophen 325 Mg Tablet) 650 mg PO Q6H PRN PRN Reason: Headache/Pain Mild Scale (1-3) Last Admin: 11/08/21 17:05 Dose: 650 mg Documented by: Al Hydroxide/Mg Hydroxide (Magnesium Hydrox/Alum Hydrox 30 Ml Oral.Susp) 30 ml PO Q6H PRN PRN Reason: Heartburn/Nausea Albuterol Sulfate (Albuterol Sulfate 90 Mcg 8 Gm Inhaler) 2 puff INHALE Q4H PRN PRN Reason: Wheezing Last Admin: 11/12/21 10:51 Dose: 2 puff Documented by: Benztropine Mesylate (Benztropine Mesylate 0.5 Mg Tablet) 0.5 mg PO BID PRN PRN Reason: Extrapyramidal Effects/Symptoms Last Admin: 10/27/21 22:17 Dose: 0.5 mg Documented by: Buspirone HCl (Buspirone Hcl 10 Mg Tablet) 10 mg PO BID [facility] Last Admin: 11/12/21 08:37 Dose: 10 mg Documented by: Calcium Carbonate (Calcium Carbonate 500 Mg Tablet) 500 mg PO BID [facility] Last Admin: 11/12/21 08:37 Dose: 500 mg Documented by: Carbamazepine (Carbamazepine Er 200 Mg Tab.Er.12h) 400 mg PO DAILY [facility] Last Admin: 11/12/21 08:37 Dose: 400 mg Documented by: Carbamazepine (Carbamazepine Er 200 Mg Tab.Er.12h) 600 mg PO BEDTIME [facility] Last Admin: 11/11/21 20:55 Dose: 600 mg Documented by: Fluticasone Propionate (Fluticasone Propionate Nasal 16 Gm [place]) 2 spray NOSTRIL-B DAILY [facility] Last Admin: 11/12/21 10:49 Dose: 2 spray Documented by: Haloperidol (Haloperidol 5 Mg Tablet) 10 mg PO BID [facility] Last Admin: 11/12/21 08:37 Dose: 10 mg Documented by: Haloperidol (Haloperidol 5 Mg Tablet) 5 mg PO Q2H PRN PRN Reason: agitation Last Admin: 11/11/21 15:34 Dose: 5 mg Documented by: Hydroxyzine HCl (Hydroxyzine Hcl 25 Mg Tablet) 25 mg PO BEDTIME PRN PRN Reason: Anxiety Last Admin: 11/09/21 21:40 Dose: 25 mg Documented by: Lorazepam (Lorazepam 1 Mg Tablet) 2 mg PO Q2H PRN PRN Reason: agitation Last Admin: 11/11/21 15:34 Dose: 2 mg Documented by: Magnesium Hydroxide (Milk Of Magnesia 30 Ml Oral.Susp) 30 ml PO DAILY PRN PRN Reason: Constipation Last Admin: 11/06/21 22:29 Dose: 30 ml Documented by: Multivitamins/Vitamin C (Multivitamin Tablet) 1 tab PO DAILY [facility] Last Admin: 11/12/21 08:37 Dose: 1 tab Documented by: Nicotine (Nicotine 21 Mg Patch.Td24) 21 mg TRANSDERMA DAILY [facility] Last Admin: 11/12/21 08:36 Dose: 21 mg Documented by: Nicotine Polacrilex (Nicotine Polacrilex 2 Mg Gum) 2 mg BUCCAL Q2H PRN PRN Reason: Nicotine Cravings Last Admin: 11/12/21 10:49 Dose: 2 mg Documented by: Olanzapine (Olanzapine Odt 10 Mg Tab.Rapdis) 10 mg TRANSLINGU Q6H PRN PRN Reason: agitation Last Admin: 11/12/21 15:02 Dose: 10 mg Documented by: Paliperidone Palmitate (Paliperidone Palmitate 234 Mg/1.5 Ml Syringe) 234 mg IM Q28D [facility] Last Admin: 11/04/21 11:57 Dose: 234 mg Documented by: Polyethylene Glycol (Polyethylene Glycol 3350 17 Gm Powd.Pack) 17 gm PO DAILY PRN PRN Reason: Constipation Last Admin: 11/06/21 09:08 Dose: 17 gm Documented by: Tiotropium [place] (Tiotropium [place] 18 Mcg Cap.W.Dev) 1 puff INHALE RDAILY [facility] Last Admin: 11/12/21 10:49 Dose: 1 puff Documented by: Trazodone HCl (Trazodone Hcl 50 Mg Tablet) 50 mg PO BEDTIME PRN PRN Reason: Insomnia Last Admin: 11/10/21 00:47 Dose: 50 mg Documented by: Allergies Allergies Allergy/AdvReac Type Severity Reaction Status Date / Time oxcarbazepine Allergy Mild DYSTONIC Verified 10/26/21 01:13 [From Trileptal] Penicillins Allergy Mild UNKNOWN Verified 10/26/21 01:13 perphenazine [Perphenazine] Allergy Mild UNKNOWN Verified 10/26/21 01:13 Assessment & Plan Assessment & Plan (1) Schizoaffective disorder, bipolar type: Status: Acute Code(s): F25.0 - Schizoaffective disorder, bipolar type Assessment and Plan: Ms. Mello is a 51 year-old woman with long hx of schizoaffective disorder bipolar type who was brought to [facility] ED for evaluation after her ACCS worker requested crisis eval as pt presented as increasingly more disorganized, labile, religiously preoccupied which is her usual presentation when she decompensates. PLAN 1. Admit to M3, CV, 15 minutes checks for safety 2. restarted medications combination of haldol, does have Invega Sustenna 234mg IM qmonth last given 11/04. 3. started tegretol 200 BID 10/24 for mood stabilization, dosing increased to 300 mg BID on 10/25, on to 400 BID on 10/27, 600 BID as of 11/04. c/o dizziness 2 days after dose increase to 1200 mg daily, so dosing decreased to 1000 mg daily as of 11/07. check labs wednesday morning prior to discharge. took only partial doses of medication all , rapidly deteriorated by wednesday. will not be suitable for discharge wednesday. 4. HS klonopin decreased from 2 mg to 1.5 mg as of 10/25, to 1 mg as of 10/26, to 0.5 mg as of 10/28, then DCed entirely. 5. Aftercare planning. may go to respite once stabilized. 3-day signed 11/06, revoked 11/10. 11/08- pt increasingly more irritable, reporting being thinks staff talking about her telling her to have an . pt taking partial doses of tegretol reports involuntary eye movement and dizziness as reason for decreasing dose. No SI/HI. 11/10: decompensated over w/e. will need to stay in hospital longer for adequate stabilization. 11/11: took meds last night, looking much less manic this morning. seems to be agreeing to stay until early next week. 11/12: as per 11/11. continue current Tx. I spent minutes with the patient and/or on the patient floor today, greater than?50% of which was spent counseling/coordinating care. Reason for contiued inpatient stay Substantial Risk for: inability to function and rapid decompensation
[2021-11-12] MEDS: LORazepam 1 MG TABLET 2 MG PO (16:59)
[2021-11-12] MEDS: HaloperidoL 5 MG TABLET PO (17:00)
[2021-11-12 18:00] VITALS: RESP 16
[2021-11-12] MEDS: carBAMazepine ER 200 MG TAB.ER.12H 600 MG PO (21:37)
--- NOTE | 2021-11-13 | ECG_ITS ---
Test Reason : PALPITATIONS Blood Pressure : / mmHG Vent. Rate : 086 BPM Atrial Rate : 086 BPM P-R Int : 142 ms QRS Dur : 088 ms QT Int : 388 ms P-R-T Axes : 058 033 039 degrees QTc Int : 464 ms Normal sinus rhythm Normal ECG No previous ECGs available Referred By: Tommy Bartlett Electronically Signed By:JUNI BRITO MD
[2021-11-13 07:00] VITALS: BMI 33.3
[2021-11-13 09:48] VITALS: BP 116/70; PULSE 96; RESP 15; TEMP 36.6; O2SAT 96
[2021-11-13] MEDS: carBAMazepine ER 200 MG TAB.ER.12H 400 MG PO (09:49)
[2021-11-13] MEDS: Nicotine 21 MG PATCH.TD24 TRANSDERMA (09:49)
[2021-11-13] MEDS: HaloperidoL 5 MG TABLET 10 MG PO ×2 (09:49→21:17)
[2021-11-13] MEDS: Multivitamin TABLET 1 TAB PO (09:50)
[2021-11-13] MEDS: busPIRone HCl 10 MG TABLET PO ×2 (09:50→21:17)
[2021-11-13] MEDS: Fluticasone Propionate Nasal 16 GM SPRAY 2 SPRAY NOSTRIL-B (10:07)
--- NOTE | 2021-11-13 16:23 | P.PNPSI_ITS ---
Subjective Subjective Date of Service: 11/13/21 Reason For Visit: torres Interim History: pt found resting in her bed. continues to appear a bit more subdued. talking about not going to assisted when she leaves but rather going to respite. focused on leaving next wednesday. c/o being in the hospital since prior to . asking for buspar PRNs, which MD agrees to make availabl e to her. c/o heart palps, agrees to order EKG. no other complaints or requests. per staff, napping most of the day yesterday. disorganized and delusional. feeling fatigued. i have paranoia. RIS, slept through the NOC. refusing VS. Mental Status Exam Mental Status Exam Narrative: Appearance: casually groomed, fair hygiene in NAD, no make-up Behavior: cooperative psychomotor: no PMA/PMR Speech: nml rate and amount, nml loudness, spontaneous Thought process: topical and direct Thought content: no delusions or paranoia articulated Mood: euthymic Affect: non-labile, hypo-intense SI: none expressed HI: none expressed VH/AH: none expressed Diagnostics Vital Signs (24Hr): Vital Signs - 24 hr 11/12/21 18:00 11/13/21 09:48 Temperature 97.9 F Pulse Rate 96 Respiratory Rate 16 15 Blood Pressure 116/70 Pulse Oximetry 96 BMI result Body Mass Index 34.2 Labs Results: 11/04/21 07:09 11/04/21 07:09 Medications Medications Current Medications Acetaminophen (Acetaminophen 325 Mg Tablet) 650 mg PO Q6H PRN PRN Reason: Headache/Pain Mild Scale (1-3) Last Admin: 11/08/21 17:05 Dose: 650 mg Documented by: Al Hydroxide/Mg Hydroxide (Magnesium Hydrox/Alum Hydrox 30 Ml Oral.Susp) 30 ml PO Q6H PRN PRN Reason: Heartburn/Nausea Albuterol Sulfate (Albuterol Sulfate 90 Mcg 8 Gm Inhaler) 2 puff INHALE Q4H PRN PRN Reason: Wheezing Last Admin: 11/12/21 10:51 Dose: 2 puff Documented by: Benztropine Mesylate (Benztropine Mesylate 0.5 Mg Tablet) 0.5 mg PO BID PRN PRN Reason: Extrapyramidal Effects/Symptoms Last Admin: 10/27/21 22:17 Dose: 0.5 mg Documented by: Buspirone HCl (Buspirone Hcl 10 Mg Tablet) 10 mg PO BID [facility] Last Admin: 11/13/21 09:50 Dose: 10 mg Documented by: Calcium Carbonate (Calcium Carbonate 500 Mg Tablet) 500 mg PO BID [facility] Last Admin: 11/13/21 09:49 Dose: 500 mg Documented by: Carbamazepine (Carbamazepine Er 200 Mg Tab.Er.12h) 400 mg PO DAILY [facility] Last Admin: 11/13/21 09:49 Dose: 400 mg Documented by: Carbamazepine (Carbamazepine Er 200 Mg Tab.Er.12h) 600 mg PO BEDTIME [facility] Last Admin: 11/12/21 21:37 Dose: 600 mg Documented by: Fluticasone Propionate (Fluticasone Propionate Nasal 16 Gm [place]) 2 spray NOSTRIL-B DAILY [facility] Last Admin: 11/13/21 10:07 Dose: 2 spray Documented by: Haloperidol (Haloperidol 5 Mg Tablet) 10 mg PO BID [facility] Last Admin: 11/13/21 09:49 Dose: 10 mg Documented by: Haloperidol (Haloperidol 5 Mg Tablet) 5 mg PO Q2H PRN PRN Reason: agitation Last Admin: 11/12/21 17:00 Dose: 5 mg Documented by: Hydroxyzine HCl (Hydroxyzine Hcl 25 Mg Tablet) 25 mg PO BEDTIME PRN PRN Reason: Anxiety Last Admin: 11/09/21 21:40 Dose: 25 mg Documented by: Lorazepam (Lorazepam 1 Mg Tablet) 2 mg PO Q2H PRN PRN Reason: agitation Last Admin: 11/12/21 16:59 Dose: 2 mg Documented by: Magnesium Hydroxide (Milk Of Magnesia 30 Ml Oral.Susp) 30 ml PO DAILY PRN PRN Reason: Constipation Last Admin: 11/06/21 22:29 Dose: 30 ml Documented by: Multivitamins/Vitamin C (Multivitamin Tablet) 1 tab PO DAILY [facility] Last Admin: 11/13/21 09:50 Dose: 1 tab Documented by: Nicotine (Nicotine 21 Mg Patch.Td24) 21 mg TRANSDERMA DAILY [facility] Last Admin: 11/13/21 09:49 Dose: 21 mg Documented by: Nicotine Polacrilex (Nicotine Polacrilex 2 Mg Gum) 2 mg BUCCAL Q2H PRN PRN Reason: Nicotine Cravings Last Admin: 11/12/21 10:49 Dose: 2 mg Documented by: Olanzapine (Olanzapine Odt 10 Mg Tab.Rapdis) 10 mg TRANSLINGU Q6H PRN PRN Reason: agitation Last Admin: 11/12/21 15:02 Dose: 10 mg Documented by: Paliperidone Palmitate (Paliperidone Palmitate 234 Mg/1.5 Ml Syringe) 234 mg IM Q28D [facility] Last Admin: 11/04/21 11:57 Dose: 234 mg Documented by: Polyethylene Glycol (Polyethylene Glycol 3350 17 Gm Powd.Pack) 17 gm PO DAILY PRN PRN Reason: Constipation Last Admin: 11/06/21 09:08 Dose: 17 gm Documented by: Tiotropium [place] (Tiotropium [place] 18 Mcg Cap.W.Dev) 1 puff INHALE RDAILY [facility] Last Admin: 11/13/21 09:50 Dose: Not Given Documented by: Trazodone HCl (Trazodone Hcl 50 Mg Tablet) 50 mg PO BEDTIME PRN PRN Reason: Insomnia Last Admin: 11/10/21 00:47 Dose: 50 mg Documented by: Allergies Allergies Allergy/AdvReac Type Severity Reaction Status Date / Time oxcarbazepine Allergy Mild DYSTONIC Verified 10/26/21 01:13 [From Trileptal] Penicillins Allergy Mild UNKNOWN Verified 10/26/21 01:13 perphenazine [Perphenazine] Allergy Mild UNKNOWN Verified 10/26/21 01:13 Assessment & Plan Assessment & Plan (1) Schizoaffective disorder, bipolar type: Status: Acute Code(s): F25.0 - Schizoaffective disorder, bipolar type Assessment and Plan: Ms. Mello is a 51 year-old woman with long hx of schizoaffective disorder bipolar type who was brought to [facility] ED for evaluation after her ACCS worker requested crisis eval as pt presented as increasingly more disorganized, labile, religiously preoccupied which is her usual presentation when she decompensates. PLAN 1. Admit to M3, CV, 15 minutes checks for safety 2. restarted medications combination of haldol, does have Invega Sustenna 234mg IM qmonth last given 11/04. 3. started tegretol 200 BID 10/24 for mood stabilization, dosing increased to 300 mg BID on 10/25, on to 400 BID on 10/27, 600 BID as of 11/04. c/o dizziness 2 days after dose increase to 1200 mg daily, so dosing decreased to 1000 mg daily as of 11/07. check labs wednesday morning prior to discharge. took only partial doses of medication all , rapidly deteriorated by wednesday. will not be suitable for discharge wednesday. 4. HS klonopin decreased from 2 mg to 1.5 mg as of 10/25, to 1 mg as of 10/26, to 0.5 mg as of 10/28, then DCed entirely. 5. Aftercare planning. may go to respite once stabilized. 3-day signed 11/06, revoked 11/10. 11/08- pt increasingly more irritable, reporting being thinks staff talking about her telling her to have an . pt taking partial doses of tegretol reports involuntary eye movement and dizziness as reason for decreasing dose. No SI/HI. 11/10: decompensated over w/e. will need to stay in hospital longer for adequat e stabilization. 11/11: took meds last night, looking much less manic this morning. seems to be agreeing to stay until early next week. 11/12: continue current Tx. 11/13: continue current Tx. I spent minutes with the patient and/or on the patient floor today, greater than?50% of which was spent counseling/coordinating care. Reason for contiued inpatient stay Substantial Risk for: inability to function and rapid decompensation
[2021-11-13] MEDS: busPIRone HCl 5 MG TABLET PO (16:55)
[2021-11-13] MEDS: polyethylene glycoL 3350 17 GM POWD.PACK PO (17:25)
[2021-11-13 18:00] VITALS: BP 177/95; PULSE 78; RESP 14; TEMP 36.7; O2SAT 98
[2021-11-13] MEDS: HaloperidoL 5 MG TABLET PO (19:45)
[2021-11-13] MEDS: LORazepam 1 MG TABLET 2 MG PO (19:46)
[2021-11-13] MEDS: carBAMazepine ER 200 MG TAB.ER.12H 600 MG PO (21:17)
[2021-11-14 08:37] VITALS: BP 125/85; PULSE 97; RESP 15; TEMP 36.7; O2SAT 95
[2021-11-14] MEDS: Fluticasone Propionate Nasal 16 GM SPRAY 2 SPRAY NOSTRIL-B (08:38)
[2021-11-14] MEDS: carBAMazepine ER 200 MG TAB.ER.12H 400 MG PO (08:40)
[2021-11-14] MEDS: Multivitamin TABLET 1 TAB PO (08:40)
[2021-11-14] MEDS: HaloperidoL 5 MG TABLET 10 MG PO ×2 (08:40→19:44)
[2021-11-14] MEDS: busPIRone HCl 10 MG TABLET PO ×2 (08:40→19:44)
[2021-11-14] MEDS: Nicotine 21 MG PATCH.TD24 TRANSDERMA (08:41)
--- NOTE | 2021-11-14 14:46 | P.PNPSI_ITS ---
Subjective Subjective Date of Service: 11/14/21 Reason For Visit: torres Interim History: pt found sleeping in her bed. similar presentation to yesterday. adequately but understatedly groomed. discuss planned discharge for wednesday. amenable to lab draw wednesday morning. states she is no longer hearing from feng. per staff, no changes. asking for xray of abd bcse she believes she is and can hear the baby talking to her. got PRN haldol and ativan yesterday at 745 pm and slept the rest of the night. conversation with feng (male voice inside her). Mental Status Exam Mental Status Exam Narrative: Appearance: casually groomed, fair hygiene in NAD, no make-up Behavior: cooperative psychomotor: no PMA/PMR Speech: incr rate and amount, nml loudness, spontaneous Thought process: topical and direct Thought content: delusions of mental telepathy abilities Mood: euthymic Affect: non-labile, normo-intense SI: none expressed HI: none expressed VH/AH: none expressed Diagnostics Vital Signs (24Hr): Vital Signs - 24 hr 11/13/21 18:00 11/14/21 08:37 Temperature 98.0 F 98.0 F Pulse Rate 78 97 Respiratory Rate 14 15 Blood Pressure 177/95 H 125/85 Pulse Oximetry 98 95 BMI result Body Mass Index 33.3 Labs Results: 11/04/21 07:09 11/04/21 07:09 Medications Medications Current Medications Acetaminophen (Acetaminophen 325 Mg Tablet) 650 mg PO Q6H PRN PRN Reason: Headache/Pain Mild Scale (1-3) Last Admin: 11/08/21 17:05 Dose: 650 mg Documented by: Al Hydroxide/Mg Hydroxide (Magnesium Hydrox/Alum Hydrox 30 Ml Oral.Susp) 30 ml PO Q6H PRN PRN Reason: Heartburn/Nausea Albuterol Sulfate (Albuterol Sulfate 90 Mcg 8 Gm Inhaler) 2 puff INHALE Q4H PRN PRN Reason: Wheezing Last Admin: 11/12/21 10:51 Dose: 2 puff Documented by: Benztropine Mesylate (Benztropine Mesylate 0.5 Mg Tablet) 0.5 mg PO BID PRN PRN Reason: Extrapyramidal Effects/Symptoms Last Admin: 10/27/21 22:17 Dose: 0.5 mg Documented by: Buspirone HCl (Buspirone Hcl 10 Mg Tablet) 10 mg PO BID [facility] Last Admin: 11/14/21 08:40 Dose: 10 mg Documented by: Buspirone HCl (Buspirone Hcl 5 Mg Tablet) 5 mg PO BID PRN PRN Reason: anxiety Last Admin: 11/13/21 16:55 Dose: 5 mg Documented by: Calcium Carbonate (Calcium Carbonate 500 Mg Tablet) 500 mg PO BID [facility] Last Admin: 11/14/21 08:40 Dose: 500 mg Documented by: Carbamazepine (Carbamazepine Er 200 Mg Tab.Er.12h) 400 mg PO DAILY [facility] Last Admin: 11/14/21 08:40 Dose: 400 mg Documented by: Carbamazepine (Carbamazepine Er 200 Mg Tab.Er.12h) 600 mg PO BEDTIME [facility] Last Admin: 11/13/21 21:17 Dose: 600 mg Documented by: Fluticasone Propionate (Fluticasone Propionate Nasal 16 Gm [place]) 2 spray NOSTRIL-B DAILY [facility] Last Admin: 11/14/21 08:38 Dose: 2 spray Documented by: Haloperidol (Haloperidol 5 Mg Tablet) 10 mg PO BID [facility] Last Admin: 11/14/21 08:40 Dose: 10 mg Documented by: Haloperidol (Haloperidol 5 Mg Tablet) 5 mg PO Q2H PRN PRN Reason: agitation Last Admin: 11/13/21 19:45 Dose: 5 mg Documented by: Hydroxyzine HCl (Hydroxyzine Hcl 25 Mg Tablet) 25 mg PO BEDTIME PRN PRN Reason: Anxiety Last Admin: 11/09/21 21:40 Dose: 25 mg Documented by: Lorazepam (Lorazepam 1 Mg Tablet) 2 mg PO Q2H PRN PRN Reason: agitation Last Admin: 11/13/21 19:46 Dose: 2 mg Documented by: Magnesium Hydroxide (Milk Of Magnesia 30 Ml Oral.Susp) 30 ml PO DAILY PRN PRN Reason: Constipation Last Admin: 11/06/21 22:29 Dose: 30 ml Documented by: Multivitamins/Vitamin C (Multivitamin Tablet) 1 tab PO DAILY [facility] Last Admin: 11/14/21 08:40 Dose: 1 tab Documented by: Nicotine (Nicotine 21 Mg Patch.Td24) 21 mg TRANSDERMA DAILY [facility] Last Admin: 11/14/21 08:41 Dose: 21 mg Documented by: Nicotine Polacrilex (Nicotine Polacrilex 2 Mg Gum) 2 mg BUCCAL Q2H PRN PRN Reason: Nicotine Cravings Last Admin: 11/12/21 10:49 Dose: 2 mg Documented by: Olanzapine (Olanzapine Odt 10 Mg Tab.Rapdis) 10 mg TRANSLINGU Q6H PRN PRN Reason: agitation Last Admin: 11/12/21 15:02 Dose: 10 mg Documented by: Paliperidone Palmitate (Paliperidone Palmitate 234 Mg/1.5 Ml Syringe) 234 mg IM Q28D [facility] Last Admin: 11/04/21 11:57 Dose: 234 mg Documented by: Polyethylene Glycol (Polyethylene Glycol 3350 17 Gm Powd.Pack) 17 gm PO DAILY PRN PRN Reason: Constipation Last Admin: 11/13/21 17:25 Dose: 17 gm Documented by: Tiotropium [place] (Tiotropium [place] 18 Mcg Cap.W.Dev) 1 puff INHALE RDAILY [facility] Last Admin: 11/14/21 08:39 Dose: 1 puff Documented by: Trazodone HCl (Trazodone Hcl 50 Mg Tablet) 50 mg PO BEDTIME PRN PRN Reason: Insomnia Last Admin: 11/10/21 00:47 Dose: 50 mg Documented by: Allergies Allergies Allergy/AdvReac Type Severity Reaction Status Date / Time oxcarbazepine Allergy Mild DYSTONIC Verified 10/26/21 01:13 [From Trileptal] Penicillins Allergy Mild UNKNOWN Verified 10/26/21 01:13 perphenazine [Perphenazine] Allergy Mild UNKNOWN Verified 10/26/21 01:13 Assessment & Plan Assessment & Plan (1) Schizoaffective disorder, bipolar type: Status: Acute Code(s): F25.0 - Schizoaffective disorder, bipolar type Assessment and Plan: Ms. Mello is a 51 year-old woman with long hx of schizoaffective disorder bipolar type who was brought to [facility] ED for evaluation after her ACCS worker requ ested crisis eval as pt presented as increasingly more disorganized, labile, religiously preoccupied which is her usual presentation when she decompensates. PLAN 1. Admit to M3, CV, 15 minutes checks for safety 2. restarted medications combination of haldol, does have Invega Sustenna 234mg IM qmonth last given 11/04. 3. started tegretol 200 BID 10/24 for mood stabilization, dosing increased to 30 0 mg BID on 10/25, on to 400 BID on 10/27, 600 BID as of 11/04. c/o dizziness 2 days after dose increase to 1200 mg daily, so dosing decreased to 1000 mg daily as of 11/07. check labs wednesday morning prior to discharge. took only partial doses of medication all weekend, rapidly deteriorated by wednesday. will not be suitable for discharge wednesday. 4. HS klonopin decreased from 2 mg to 1.5 mg as of 10/25, to 1 mg as of 10/26, to 0.5 mg as of 10/28, then DCed entirely. 5. Aftercare planning. may go to respite once stabilized. 3-day signed 11/06, revoked 11/10. 11/08- pt increasingly more irritable, reporting being thinks staff talking about her telling her to have an . pt taking partial doses of tegretol reports involuntary eye movement and dizziness as reason for decreasing dose. No SI/HI. 11/10: decompensated over w/e. will need to stay in hospital longer for adequa te stabilization. 11/11: took meds last night, looking much less manic this morning. seems to be agreeing to stay until early next week. 11/12 - : continue current Tx. 11/17: draw labs 11/18: planned discharge date I spent minutes with the patient and/or on the patient floor today, greater than?50% of which was spent counseling/coordinating care. Reason for contiued inpatient stay Substantial Risk for: inability to function and rapid decompensation
[2021-11-14] MEDS: busPIRone HCl 5 MG TABLET PO (15:12)
[2021-11-14] MEDS: carBAMazepine ER 200 MG TAB.ER.12H 600 MG PO (19:44)
[2021-11-15] MEDS: Acetaminophen 325 MG TABLET 650 MG PO ×3 (01:00→19:10)
[2021-11-15] MEDS: busPIRone HCl 5 MG TABLET PO ×2 (04:16→15:34)
[2021-11-15 06:00] VITALS: BP 129/74; PULSE 87; RESP 16; TEMP 36.5; O2SAT 97
[2021-11-15] MEDS: busPIRone HCl 10 MG TABLET PO ×2 (08:30→21:05)
[2021-11-15] MEDS: carBAMazepine ER 200 MG TAB.ER.12H 400 MG PO (08:30)
[2021-11-15] MEDS: HaloperidoL 5 MG TABLET 10 MG PO ×2 (08:30→21:04)
[2021-11-15] MEDS: Multivitamin TABLET 1 TAB PO (08:30)
[2021-11-15] MEDS: Nicotine 21 MG PATCH.TD24 TRANSDERMA (08:32)
[2021-11-15] MEDS: Fluticasone Propionate Nasal 16 GM SPRAY 2 SPRAY NOSTRIL-B (08:37)
--- NOTE | 2021-11-15 12:37 | HO.PSYCHPN ---
Subjective Subjective Date of Service: 11/15/21 Reason For Visit: torres Interim History: The nursing staff reported that the patient is pleasantly psychotic, labile and disorganized at times. She reported AH of [place] bothering her. On interview, she denied new symptoms, she was wearing her colorful wig Mental Status Exam Mental Status Exam Patient Appearance: Inappropriate (with multicolor wig, with excessive make-up) Patient Orientation: Person Level of Consciousness: Awake and Alert Patient Behavior: Cooperative Mood Description: Labile Affect Description: Constricted Ability to Follow Directions: Fair Speech Pattern: Clear Hallucinations: Auditory Delusions: Present Perceptual Disturbances: Hallucinations Thought Process: Illogical Thought Content: positive for Loose Associations Judgement: Fair Diagnostics Vital Signs (24Hr): Vital Signs - 24 hr 11/15/21 06:00 Temperature 97.7 F Pulse Rate 87 Respiratory Rate 16 Blood Pressure 129/74 Pulse Oximetry 97 BMI result Body Mass Index 33.3 Labs Results: 11/04/21 07:09 11/04/21 07:09 Medications Medications Current Medications Acetaminophen (Acetaminophen 325 Mg Tablet) 650 mg PO Q6H PRN PRN Reason: Headache/Pain Mild Scale (1-3) Last Admin: 11/15/21 10:06 Dose: 650 mg Documented by: Al Hydroxide/Mg Hydroxide (Magnesium Hydrox/Alum Hydrox 30 Ml Oral.Susp) 30 ml PO Q6H PRN PRN Reason: Heartburn/Nausea Albuterol Sulfate (Albuterol Sulfate 90 Mcg 8 Gm Inhaler) 2 puff INHALE Q4H PRN PRN Reason: Wheezing Last Admin: 11/12/21 10:51 Dose: 2 puff Documented by: Benztropine Mesylate (Benztropine Mesylate 0.5 Mg Tablet) 0.5 mg PO BID PRN PRN Reason: Extrapyramidal Effects/Symptoms Last Admin: 10/27/21 22:17 Dose: 0.5 mg Documented by: Buspirone HCl (Buspirone Hcl 10 Mg Tablet) 10 mg PO BID [facility] Last Admin: 11/15/21 08:30 Dose: 10 mg Documented by: Buspirone HCl (Buspirone Hcl 5 Mg Tablet) 5 mg PO BID PRN PRN Reason: anxiety Last Admin: 11/15/21 04:16 Dose: 5 mg Documented by: Calcium Carbonate (Calcium Carbonate 500 Mg Tablet) 500 mg PO BID [facility] Last Admin: 11/15/21 08:31 Dose: 500 mg Documented by: Carbamazepine (Carbamazepine Er 200 Mg Tab.Er.12h) 400 mg PO DAILY [facility] Last Admin: 11/15/21 08:30 Dose: 400 mg Documented by: Carbamazepine (Carbamazepine Er 200 Mg Tab.Er.12h) 600 mg PO BEDTIME [facility] Last Admin: 11/14/21 19:44 Dose: 600 mg Documented by: Fluticasone Propionate (Fluticasone Propionate Nasal 16 Gm [place]) 2 spray NOSTRIL-B DAILY [facility] Last Admin: 11/15/21 08:37 Dose: 2 spray Documented by: Haloperidol (Haloperidol 5 Mg Tablet) 10 mg PO BID [facility] Last Admin: 11/15/21 08:30 Dose: 10 mg Documented by: Haloperidol (Haloperidol 5 Mg Tablet) 5 mg PO Q2H PRN PRN Reason: agitation Last Admin: 11/13/21 19:45 Dose: 5 mg Documented by: Hydroxyzine HCl (Hydroxyzine Hcl 25 Mg Tablet) 25 mg PO BEDTIME PRN PRN Reason: Anxiety Last Admin: 11/09/21 21:40 Dose: 25 mg Documented by: Magnesium Hydroxide (Milk Of Magnesia 30 Ml Oral.Susp) 30 ml PO DAILY PRN PRN Reason: Constipation Last Admin: 11/06/21 22:29 Dose: 30 ml Documented by: Multivitamins/Vitamin C (Multivitamin Tablet) 1 tab PO DAILY [facility] Last Admin: 11/15/21 08:30 Dose: 1 tab Documented by: Nicotine (Nicotine 21 Mg Patch.Td24) 21 mg TRANSDERMA DAILY [facility] Last Admin: 11/15/21 08:32 Dose: 21 mg Documented by: Nicotine Polacrilex (Nicotine Polacrilex 2 Mg Gum) 2 mg BUCCAL Q2H PRN PRN Reason: Nicotine Cravings Last Admin: 11/12/21 10:49 Dose: 2 mg Documented by: Olanzapine (Olanzapine Odt 10 Mg Tab.Rapdis) 10 mg TRANSLINGU Q6H PRN PRN Reason: agitation Last Admin: 11/12/21 15:02 Dose: 10 mg Documented by: Paliperidone Palmitate (Paliperidone Palmitate 234 Mg/1.5 Ml Syringe) 234 mg IM Q28D [facility] Last Admin: 11/04/21 11:57 Dose: 234 mg Documented by: Polyethylene Glycol (Polyethylene Glycol 3350 17 Gm Powd.Pack) 17 gm PO DAILY PRN PRN Reason: Constipation Last Admin: 11/13/21 17:25 Dose: 17 gm Documented by: Tiotropium [place] (Tiotropium [place] 18 Mcg Cap.W.Dev) 1 puff INHALE RDAILY [facility] Last Admin: 11/15/21 08:33 Dose: 1 puff Documented by: Trazodone HCl (Trazodone Hcl 50 Mg Tablet) 50 mg PO BEDTIME PRN PRN Reason: Insomnia Last Admin: 11/10/21 00:47 Dose: 50 mg Documented by: Allergies Allergies Allergy/AdvReac Type Severity Reaction Status Date / Time oxcarbazepine Allergy Mild DYSTONIC Verified 10/26/21 01:13 [From Trileptal] Penicillins Allergy Mild UNKNOWN Verified 10/26/21 01:13 perphenazine [Perphenazine] Allergy Mild UNKNOWN Verified 10/26/21 01:13 Assessment & Plan Assessment & Plan (1) Schizoaffective disorder, bipolar type: Status: Acute Code(s): F25.0 - Schizoaffective disorder, bipolar type Assessment and Plan: Ms. Mello is a 51 year-old woman with long hx of schizoaffective disorder bipolar type who was brought to [facility] ED for evaluation after her ACCS worker requested crisis eval as pt presented as increasingly more disorganized, labile, religiously preoccupied which is her usual presentation when she decompensates. PLAN 1. Admit to M3, CV, 15 minutes checks for safety 2. restarted medications combination of haldol, does have Invega Sustenna 234mg IM qmonth last given 11/04. 3. started tegretol 200 BID 10/24 for mood stabilization, dosing increased to 300 mg BID on 10/25, on to 400 BID on 10/27, 600 BID as of 11/04. c/o dizziness 2 days after dose increase to 1200 mg daily, so dosing decreased to 1000 mg daily as of 11/07. check labs wednesday morning prior to discharge. took only partial doses of medication all weekend, rapidly deteriorated by wednesday. will not be suitable for discharge wednesday. 4. HS klonopin decreased from 2 mg to 1.5 mg as of 10/25, to 1 mg as of 10/26, to 0.5 mg as of 10/28, then DCed entirely. 5. Aftercare planning. may go to respite once stabilized. 3-day signed 11/06, revoked 11/10. 11/08- pt increasingly more irritable, reporting being thinks staff talking about her telling her to have an . pt taking partial doses of tegretol reports involuntary eye movement and dizziness as reason for decreasing dose. No SI/HI. 11/10: decompensated over w/e. will need to stay in hospital longer for adequate stabilization. 11/11: took meds last night, looking much less manic this morning. seems to be agreeing to stay until early next week. 11/12 - : continue current Tx. 11/17: draw labs 11/18: planned discharge date I spent minutes with the patient and/or on the patient floor today, greater than?50% of which was spent counseling/coordinating care. Reason for contiued inpatient stay Substantial Risk for: inability to function, rapid decompensation and med/psych decompensation
[2021-11-15] MEDS: Albuterol Sulfate 90 MCG 8 GM INHALER 2 PUFF INHALE (16:38)
[2021-11-15] MEDS: polyethylene glycoL 3350 17 GM POWD.PACK PO (16:57)
[2021-11-15] MEDS: HaloperidoL 5 MG TABLET PO (17:49)
[2021-11-15] MEDS: LORazepam 1 MG TABLET 2 MG PO (17:49)
[2021-11-15 20:15] VITALS: BP 177/92; PULSE 95; RESP 18; TEMP 36.3; O2SAT 96
[2021-11-15] MEDS: carBAMazepine ER 200 MG TAB.ER.12H 600 MG PO (21:04)
[2021-11-16] MEDS: busPIRone HCl 5 MG TABLET PO ×2 (03:51→14:48)
[2021-11-16 06:00] VITALS: BP 130/69; PULSE 92; RESP 16; TEMP 36.6; O2SAT 97
[2021-11-16] MEDS: Fluticasone Propionate Nasal 16 GM SPRAY 2 SPRAY NOSTRIL-B (06:03)
[2021-11-16] MEDS: Acetaminophen 325 MG TABLET 650 MG PO (06:04)
[2021-11-16] MEDS: Nicotine 21 MG PATCH.TD24 TRANSDERMA (09:05)
[2021-11-16] MEDS: carBAMazepine ER 200 MG TAB.ER.12H 400 MG PO (09:06)
[2021-11-16] MEDS: HaloperidoL 5 MG TABLET 10 MG PO ×2 (09:06→21:08)
[2021-11-16] MEDS: Multivitamin TABLET 1 TAB PO (09:06)
[2021-11-16] MEDS: busPIRone HCl 10 MG TABLET PO ×2 (09:06→21:08)
--- NOTE | 2021-11-16 11:30 | P.PNPSI_ITS ---
Subjective Subjective Date of Service: 11/16/21 Reason For Visit: torres Subjective Notes: Conditional Voluntary Interim History: The nursing staff reported that the patient self dialogues, responds to internal stimuli but she is redirectable. On interview, she denied new symptoms, she was pleasantly psychotic. Mental Status Exam Mental Status Exam Patient Appearance: Appropriate Patient Orientation: Person Level of Consciousness: Disoriented and Restless Patient Behavior: Guarded and Cooperative Mood Description: Cheerful and Anxious Affect Description: Constricted Patient Cognition Impaired: No Ability to Follow Directions: Good Speech Pattern: Clear Hallucinations: Auditory Delusions: Paranoid Ideation Thought Process: Illogical and Distracted Thought Content: positive for Loose Associations Judgement: Fair Diagnostics Vital Signs (24Hr): Vital Signs - 24 hr 11/15/21 20:15 11/16/21 06:00 Temperature 97.3 F 97.9 F Pulse Rate 95 92 Respiratory Rate 18 16 Blood Pressure 177/92 H 130/69 Pulse Oximetry 96 97 BMI result Body Mass Index 33.3 Labs Results: 11/04/21 07:09 11/04/21 07:09 Medications Medications Current Medications Acetaminophen (Acetaminophen 325 Mg Tablet) 650 mg PO Q6H PRN PRN Reason: Headache/Pain Mild Scale (1-3) Last Admin: 11/16/21 06:04 Dose: 650 mg Documented by: Al Hydroxide/Mg Hydroxide (Magnesium Hydrox/Alum Hydrox 30 Ml Oral.Susp) 30 ml PO Q6H PRN PRN Reason: Heartburn/Nausea Albuterol Sulfate (Albuterol Sulfate 90 Mcg 8 Gm Inhaler) 2 puff INHALE Q4H PRN PRN Reason: Wheezing Last Admin: 11/15/21 16:38 Dose: 2 puff Documented by: Benztropine Mesylate (Benztropine Mesylate 0.5 Mg Tablet) 0.5 mg PO BID PRN PRN Reason: Extrapyramidal Effects/Symptoms Last Admin: 10/27/21 22:17 Dose: 0.5 mg Documented by: Buspirone HCl (Buspirone Hcl 10 Mg Tablet) 10 mg PO BID [facility] Last Admin: 11/16/21 09:06 Dose: 10 mg Documented by: Buspirone HCl (Buspirone Hcl 5 Mg Tablet) 5 mg PO BID PRN PRN Reason: anxiety Last Admin: 11/16/21 03:51 Dose: 5 mg Documented by: Calcium Carbonate (Calcium Carbonate 500 Mg Tablet) 500 mg PO BID [facility] Last Admin: 11/16/21 09:06 Dose: 500 mg Documented by: Carbamazepine (Carbamazepine Er 200 Mg Tab.Er.12h) 400 mg PO DAILY [facility] Last Admin: 11/16/21 09:06 Dose: 400 mg Documented by: Carbamazepine (Carbamazepine Er 200 Mg Tab.Er.12h) 600 mg PO BEDTIME [facility] Last Admin: 11/15/21 21:04 Dose: 600 mg Documented by: Fluticasone Propionate (Fluticasone Propionate Nasal 16 Gm [place]) 2 spray NOSTRIL-B DAILY [facility] Last Admin: 11/16/21 06:03 Dose: 2 spray Documented by: Haloperidol (Haloperidol 5 Mg Tablet) 10 mg PO BID [facility] Last Admin: 11/16/21 09:06 Dose: 10 mg Documented by: Haloperidol (Haloperidol 5 Mg Tablet) 5 mg PO Q2H PRN PRN Reason: agitation Last Admin: 11/15/21 17:49 Dose: 5 mg Documented by: Hydroxyzine HCl (Hydroxyzine Hcl 25 Mg Tablet) 25 mg PO BEDTIME PRN PRN Reason: Anxiety Last Admin: 11/09/21 21:40 Dose: 25 mg Documented by: Lorazepam (Lorazepam 1 Mg Tablet) 2 mg PO Q2H PRN PRN Reason: agitation Last Admin: 11/15/21 17:49 Dose: 2 mg Documented by: Magnesium Hydroxide (Milk Of Magnesia 30 Ml Oral.Susp) 30 ml PO DAILY PRN PRN Reason: Constipation Last Admin: 11/06/21 22:29 Dose: 30 ml Documented by: Multivitamins/Vitamin C (Multivitamin Tablet) 1 tab PO DAILY [facility] Last Admin: 11/16/21 09:06 Dose: 1 tab Documented by: Nicotine (Nicotine 21 Mg Patch.Td24) 21 mg TRANSDERMA DAILY [facility] Last Admin: 11/16/21 09:05 Dose: 21 mg Documented by: Nicotine Polacrilex (Nicotine Polacrilex 2 Mg Gum) 2 mg BUCCAL Q2H PRN PRN Reason: Nicotine Cravings Last Admin: 11/12/21 10:49 Dose: 2 mg Documented by: Olanzapine (Olanzapine Odt 10 Mg Tab.Rapdis) 10 mg TRANSLINGU Q6H PRN PRN Reason: agitation Last Admin: 11/12/21 15:02 Dose: 10 mg Documented by: Paliperidone Palmitate (Paliperidone Palmitate 234 Mg/1.5 Ml Syringe) 234 mg IM Q28D [facility] Last Admin: 11/04/21 11:57 Dose: 234 mg Documented by: Polyethylene Glycol (Polyethylene Glycol 3350 17 Gm Powd.Pack) 17 gm PO DAILY PRN PRN Reason: Constipation Last Admin: 11/15/21 16:57 Dose: 17 gm Documented by: Tiotropium [place] (Tiotropium [place] 18 Mcg Cap.W.Dev) 1 puff INHALE RDAILY [facility] Last Admin: 11/16/21 09:04 Dose: 1 puff Documented by: Trazodone HCl (Trazodone Hcl 50 Mg Tablet) 50 mg PO BEDTIME PRN PRN Reason: Insomnia Last Admin: 11/10/21 00:47 Dose: 50 mg Documented by: Allergies Allergies Allergy/AdvReac Type Severity Reaction Status Date / Time oxcarbazepine Allergy Mild DYSTONIC Verified 10/26/21 01:13 [From Trileptal] Penicillins Allergy Mild UNKNOWN Verified 10/26/21 01:13 perphenazine [Perphenazine] Allergy Mild UNKNOWN Verified 10/26/21 01:13 Assessment & Plan Assessment & Plan (1) Schizoaffective disorder, bipolar type: Status: Acute Code(s): F25.0 - Schizoaffective disorder, bipolar type Assessment and Plan: Ms. Mello is a 51 year-old woman with long hx of schizoaffective disorder bipolar type who was brought to [facility] ED for evaluation after her ACCS worker requested crisis eval as pt presented as increasingly more disorganized, labile, religiously preoccupied which is her usual presentation when she decompensates. PLAN 1. Admit to M3, CV, 15 minutes checks for safety 2. restarted medications combination of haldol, does have Invega Sustenna 234mg IM qmonth last given 11/04. 3. started tegretol 200 BID 10/24 for mood stabilization, dosing increased to 300 mg BID on 10/25, on to 400 BID on 10/27, 600 BID as of 11/04. c/o dizziness 2 days after dose increase to 1200 mg daily, so dosing decreased to 1000 mg daily as of 11/07. check labs wednesday morning prior to discharge. took only partial doses of medication all weekend, rapidly deteriorated by wednesday. will not be suitable for discharge wednesday. 4. HS klonopin decreased from 2 mg to 1.5 mg as of 10/25, to 1 mg as of 10/26, to 0.5 mg as of 10/28, then DCed entirely. 5. Aftercare planning. may go to respite once stabilized. 3-day signed 11/06, revoked 11/10. 11/08- pt increasingly more irritable, reporting being thinks staff talking about her telling her to have an . pt taking partial doses of tegretol reports involuntary eye movement and dizziness as reason for decreasing dose. No SI/HI. 11/10: decompensated over w/e. will need to stay in hospital longer for adequate stabilization. 11/11: took meds last night, looking much less manic this morning. seems to be agreeing to stay until early next week. 11/12 - : continue current Tx. 11/17: draw labs 11/18: planned discharge date I spent minutes with the patient and/or on the patient floor today, greater than?50% of which was spent counseling/coordinating care. Reason for contiued inpatient stay Substantial Risk for: inability to function, rapid decompensation and med/psych decompensation
[2021-11-16] MEDS: HaloperidoL 5 MG TABLET PO (14:48)
[2021-11-16] MEDS: LORazepam 1 MG TABLET 2 MG PO (14:49)
[2021-11-16 18:00] VITALS: RESP 18
[2021-11-16] MEDS: carBAMazepine ER 200 MG TAB.ER.12H 600 MG PO (21:07)
[2021-11-17] MEDS: busPIRone HCl 5 MG TABLET PO ×2 (03:58→16:16)
[2021-11-17] MEDS: Acetaminophen 325 MG TABLET 650 MG PO (03:58)
[2021-11-17] MEDS: Fluticasone Propionate Nasal 16 GM SPRAY 2 SPRAY NOSTRIL-B (04:01)
--- NOTE | 2021-11-17 04:05 | PC.NURSE ---
headache-woke up requesting tylenol, buspar and then early administration of flonase reporting ''it will help with my headache' given and documented
[2021-11-17 08:52] LABS: MANUAL DIFF FLAG NO
[2021-11-17 09:12] LABS: Alanine Aminotransferase 19 U/L (0-31); Alkaline Phosphatase 90 U/L (39-117); Anion Gap 11 (12-20); Aspartate Amino Transferase 14 U/L (5-31); Bilirubin Direct < 0.2 mg/dL (0.0-0.5); Bilirubin Total 0.3 mg/dL (0.0-1.0); Blood Urea Nitrogen 9 mg/dL (9-16); Calcium 9.1 mg/dL (8.4-10.2); Carbon Dioxide 27 mmol/L (22-29); Chloride 93 mmol/L (96-108); Creatinine Clr Calc Pharmacy 98.9; Estimated Glomerular Filt Rate > 60; Glucose Random 97 mg/dL (60-115); Potassium 4.6 mmol/L (3.3-5.1); Sodium 126 mmol/L (135-145)
[2021-11-17 09:25] VITALS: BP 150/88; PULSE 90; RESP 19; TEMP 36.6; O2SAT 97
[2021-11-17] MEDS: Nicotine 21 MG PATCH.TD24 TRANSDERMA (09:26)
[2021-11-17] MEDS: Albuterol Sulfate 90 MCG 8 GM INHALER 2 PUFF INHALE (09:27)
[2021-11-17] MEDS: Multivitamin TABLET 1 TAB PO (09:29)
[2021-11-17] MEDS: carBAMazepine ER 200 MG TAB.ER.12H 400 MG PO ×2 (09:29→20:10)
[2021-11-17] MEDS: HaloperidoL 5 MG TABLET 10 MG PO ×2 (09:29→20:11)
[2021-11-17] MEDS: busPIRone HCl 10 MG TABLET PO ×2 (09:29→20:11)
[2021-11-17 09:38] LABS: Hematocrit 36.3 % (37.0-47.0); Hemoglobin 12.5 g/dl (12.0-16.0); Imm Gran Abs Auto 0.02 X10*3/uL (0.00-0.03); Imm Gran Pct Auto 0.3 % (0.0-0.4); Lymphocytes Absolute Auto 1.7 X10*3/uL (1.2-4.9); Lymphocytes Percent Auto 28.9 % (20-40); Mean Corpuscular HGB Conc 34.4 g/dl (31.0-35.0); Mean Corpuscular Hemoglobin 27.6 pg (27.0-33.0); Mean Corpuscular Volume 80.1 fL (80.0-98.0); Mean Platelet Volume 9.5 fL (9.4-12.3); Monocytes Absolute Auto 0.7 X10*3/uL (0.1-1.2); Monocytes Percent Auto 11.2 % (2-11); Neutrophils Absolute Auto 3.5 x10*3/uL (2.0-8.3); Neutrophils Percent Auto 59.6 % (45-73); Platelet Count 302 X10*3/uL (160-400); Red Blood Count 4.53 X10*6/uL (4.20-5.50); Red Cell Distribution Width 12.5 % (11.0-16.0); White Blood Count 5.8 X10*3/uL (4.8-10.8)
[2021-11-17 09:42] LABS: Carbamazepine Tegretol 7.5 mcg/mL (5.0-12.0)
--- NOTE | 2021-11-17 10:16 | PC.NURSE ---
Patient reported an episode of vomiting in the morning prior to morning med pass. Patient reported it was all yellow . Episode was unwitnessed by staff members. Patient also reported dizziness. Patient encouraged to increase fluid intake. Escourted back to bed by RN. Patient encouraged to call for assistance when ambulating. MD notified.
[2021-11-17 14:42] LABS: COVID-19 Test Negative (Negative); IDNOW Serial# 55D5AD1C
[2021-11-17] MEDS: Nicotine Polacrilex 2 MG GUM BUCCAL (17:24)
[2021-11-17] MEDS: LORazepam 1 MG TABLET 2 MG PO (17:24)
[2021-11-17] MEDS: HaloperidoL 5 MG TABLET PO (17:24)
[2021-11-17 18:29] VITALS: BP 174/91; PULSE 90; RESP 17; TEMP 36.7; O2SAT 97
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
[2021-11-18 08:29] VITALS: BP 113/66; PULSE 102; RESP 18; TEMP 36.3; O2SAT 97
[2021-11-18] MEDS: Fluticasone Propionate Nasal 16 GM SPRAY 2 SPRAY NOSTRIL-B (08:30)
[2021-11-18] MEDS: HaloperidoL 5 MG TABLET 10 MG PO (08:32)
[2021-11-18] MEDS: carBAMazepine ER 200 MG TAB.ER.12H 400 MG PO (08:32)
[2021-11-18] MEDS: busPIRone HCl 10 MG TABLET PO (08:32)
[2021-11-18] MEDS: Multivitamin TABLET 1 TAB PO (08:32)
[2021-11-18] MEDS: Nicotine Polacrilex 2 MG GUM BUCCAL (08:51)
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
[2021-11-18] MEDS: Nicotine 21 MG PATCH.TD24 TRANSDERMA (10:41)
[2021-11-18] MEDS: LORazepam 1 MG TABLET 2 MG PO (10:58)
[2021-11-18] MEDS: HaloperidoL 5 MG TABLET PO (10:58)
[2021-11-18] MEDS: polyethylene glycoL 3350 17 GM POWD.PACK PO (11:56)
== END 2021-11-18 12:25 | disposition home or self-care (01) | DRG 885 ==
PROVIDERS: Admitting Provider Psychiatry & Neurology Psychiatry; Visit Provider Psychiatry & Neurology Psychiatry
DX: F25.0 Schizoaffective disorder, bipolar type (principal); Z20.822 Contact with and (suspected) exposure to COVID-19; F17.210 Nicotine dependence, cigarettes, uncomplicated; Z62.810 Personal history of physical and sexual abuse in childhood; Z88.0 Allergy status to penicillin; Z79.899 Other long term (current) drug therapy
CPT/HCPCS: 36415; 80048; 80076; 80156; 85025; 87635; 93005; J2426